=== PATIENT | male | born 1950 | race American Indian/Alaskan Native ===

== ENCOUNTER 2017-05-09 11:00 | Inpatient (IN) | payer OTHER ==
[2017-05-09 11:10] VITALS: BMI 26.0
--- NOTE | 2017-05-09 12:45 | ED PDOC ---
Lower Extremity Pain/Injury Time Seen by Provider: 05/09/17 11:38 Chief Complaint (Nursing): Lower Extremity Problem/Injury Chief Complaint (Provider): left knee pain History Per: Patient History/Exam Limitations: no limitations Additional Complaint(s): 66yo M in Ed for left knee pain and for surgical intervention to knee. denies fever, chills nausea or vomiting. Pt is scheduled to have surgery to left knee by Ralph MCDANIELS today. PT [email or web address] last meal was coffee and cream this AM. Past Medical History Reviewed: Historical Data, Nursing Documentation, Vital Signs Vital Signs: Last Vital Signs Temp 99.0 F 05/09/17 11:16 Pulse 93 H 05/09/17 11:16 Resp 16 05/09/17 11:16 BP 146/97 H 05/09/17 11:16 Pulse Ox 99 05/09/17 11:16 - Medical History PMH: Benign Prostatic Hyperplasia, COPD, HTN, Hypercholesterolemia Denies: Chronic Kidney Disease - Surgical History Other surgeries: knee (left) - Family History Family History: States: Unknown Family Hx - Immunization History Hx Tetanus Toxoid Vaccination: No Hx Influenza Vaccination: No Hx Pneumococcal Vaccination: No - Home Medications Home Medications: Ambulatory Orders Medication Instructions Recorded Albuterol/Ipratropium [Combivent 1 mg DAILY 04/11/16 Respimat] Losartan/Hydrochlorothiazide 12.5 - 50 mg PO DAILY 04/11/16 [Losartan-Hctz 50-12.5 mg Tab] Albuterol/Ipratropium [Duoneb 3 3 ml INH RQ4 PRN #0 neb 04/14/16 mg/0.5 mg (3 ml) UD] Aspirin [Aspirin Chewable] 81 mg PO DAILY #0 chew 04/14/16 Atorvastatin [Lipitor] 40 mg PO DAILY #0 tab 04/14/16 Docusate [Colace] 100 mg PO BID #0 cap 04/14/16 Fluticasone/Salmeterol 100/50 1 puff IH Q12 #0 puff 04/14/16 [Advair Diskus 100/50] HCTZ/Losartan Potassium [Hyzaar 1 tab PO DAILY #0 tab 04/14/16 12.5 mg-50 mg] Lactulose [Enulose] 20 gm PO DAILY PRN #0 udc 04/14/16 Magnesium Hydroxide [Milk Of 30 ml PO DAILY PRN #0 udc 04/14/16 Magnesia] Pregabalin [Lyrica] 50 mg PO TID #0 cap 04/14/16 Sennosides [Senna] 8.6 mg PO DAILY PRN #0 capsule 04/14/16 Tamsulosin [Flomax] 0.4 mg PO DAILY #0 cap 04/14/16 oxyCODONE/Acetaminophen [Percocet 2 tab PO Q4 PRN #0 tab 04/14/16 5/325 mg Tab] traMADol [Ultram] 50 mg PO Q4 PRN #0 tab 04/14/16 Ferrous Fumarate [Ines-Sequel] 324 mg PO TID #42 tab 05/11/16 - Allergies Allergies/Adverse Reactions: Allergies Allergy/AdvReac Type Severity Reaction Status Date / Time grass pollen Allergy SWELLING Verified 05/09/17 11:22 Wells Criteria for PE - Wells Criteria for Pulmonary Embolism Clinical Signs and Symptoms of DVT: No P.E is #1 Diagnosis, or Equally Likely: No Heart Rate >100: No Immobilization at least 3 days;Surgery previous 4 weeks: No Previous, objectively diagnosed PE or DVT: No Hemoptysis: No Malignancy w/treatment within 6 months, or palliative: No Total Score: 0 Review of Systems ROS Statement: Except As Marked, All Systems Reviewed And Found Negative Musculoskeletal: Positive for: Other (knee pain) Physical Exam - Reviewed Nursing Documentation Reviewed: Yes Vital Signs Reviewed: Yes - Physical Exam Appears: Positive for: Well, Non-toxic, No Acute Distress Head Exam: Positive for: ATRAUMATIC, NORMAL INSPECTION, NORMOCEPHALIC Skin: Positive for: Normal Color, Warm, DRY Eye Exam: Positive for: Normal appearance, EOMI, PERRL Cardiovascular/Chest: Positive for: Regular Rate, Rhythm Respiratory: Positive for: CNT, Normal Breath Sounds Extremity: Positive for: Other (left knee: swelling noted no reddness noted. ) Neurologic/Psych: Positive for: Alert, Oriented - ECG O2 Sat by Pulse Oximetry: 99 - Progress ED Course And Treament: pt will pre-OR admission labs and admitted Medical Decision Making Medical Decision Making: pt to be admitted for surgical revision of knee as per MD Yonas under Hospitalist for acute knee pain. Disposition - Clinical Impression Clinical Impression: Acute knee pain - Patient ED Disposition Is Patient to be Admitted: Yes - Disposition Disposition Time: 12:48 Condition: STABLE - Pt Status Changed To: Hospital Disposition Of: SDS- Endo,OR,Cath,IR
--- NOTE | 2017-05-09 13:03 | CP.PCM.HP ---
History of Present Illness - History of Present Illness History of Present Illness: 66 yo male with history of COPD, HTN, HLD and bilateral TKR came in the ER because of progressive worsening of pain and swelling of the left knee. Patient had TKR on 04/11/2017 complicated with dehiscence 4 weeks later during PT. A revision was done. Pt did well and continued with PT. However recently pain on the left progressively got worse accompanied with swelling. Pt denied fever or chills. Dr Aguilar, was called for orthopedic consult in the ER since he was the orthopedist who did both surgeries. He advised patient to be admitted with a plan for another surgery. Present on Admission - Present on Admission Any Indicators Present on Admission: No History of DVT/PE: No History of Uncontrolled Diabetes: No Urinary Catheter: No Decubitus Ulcer Present: No Review of Systems - Review of Systems All systems: reviewed and no additional remarkable complaints except (aside from those mentioned above, 12 point system review were negative by me) Past Patient History - Infectious Disease Hx of Infectious Diseases: None - Tetanus Immunizations Tetanus Immunization: Unknown - Past Medical History & Family History Past Medical History?: Yes Past Family History: Reviewed and not pertinent - Past Social History Smoking Status: Light Smoker < 10 Cigarettes Daily Chewing Tobacco Use: No Cigar Use: No Alcohol: None Drugs: Denies Home Situation {Lives}: With Family - CARDIAC Hx Hypercholesterolemia: Yes Hx Hypertension: Yes - PULMONARY Hx Chronic Obstructive Pulmonary Disease (COPD): Yes - NEUROLOGICAL Hx Neurological Disorder: No - HEENT Hx HEENT Problems: No - RENAL Hx Chronic Kidney Disease: No - ENDOCRINE/METABOLIC Hx Endocrine Disorders: No - HEMATOLOGICAL/ONCOLOGICAL Hx Blood Disorders: No - INTEGUMENTARY Hx Dermatological Problems: No - MUSCULOSKELETAL/RHEUMATOLOGICAL Hx Musculoskeletal Disorders: Yes Hx Falls: Yes Hx Unsteady Gait: Yes - GASTROINTESTINAL Hx Gastrointestinal Disorders: No - GENITOURINARY/GYNECOLOGICAL Hx Genitourinary Disorders: No - PSYCHIATRIC Hx Psychophysiologic Disorder: No Hx Substance Use: No - SURGICAL HISTORY Hx Surgeries: Yes Hx Arthroscopy: Yes (BOTH KNEE) Hx Joint Replacement: Yes (right TKR, 2014; left TKR and revision, 2016) Other/Comment: LKR 04/11/2016. Right TKR - 2014 - ANESTHESIA Hx Anesthesia: Yes Hx Anesthesia Reactions: No Hx Malignant Hyperthermia: No Meds Allergies/Adverse Reactions: Allergies Allergy/AdvReac Type Severity Reaction Status Date / Time grass pollen Allergy SWELLING Verified 05/09/17 11:22 Physical Exam - Constitutional Appears: No Acute Distress - Head Exam Head Exam: ATRAUMATIC - Eye Exam Eye Exam: absent: Scleral icterus - ENT Exam ENT Exam: Mucous Membranes Moist - Neck Exam Neck exam: Negative for: Meningismus - Respiratory Exam Respiratory Exam: absent: Rhonchi, Wheezes, Respiratory Distress - Cardiovascular Exam Cardiovascular Exam: REGULAR RHYTHM, +S1, +S2 - GI/Abdominal Exam GI & Abdominal Exam: Soft. absent: Tenderness - Rectal Exam Rectal Exam: Deferred - Extremities Exam Extremities exam: Positive for: joint swelling (both knees but more on the left) . Negative for: calf tenderness - Back Exam Back exam: NORMAL INSPECTION - Neurological Exam Neurological exam: Alert, Oriented x3 - Psychiatric Exam Psychiatric exam: Normal Affect - Skin Skin Exam: Dry, Intact Results - Vital Signs Recent Vital Signs: Last Vital Signs Temp 99.0 F 05/09/17 11:16 Pulse 93 H 05/09/17 11:16 Resp 16 05/09/17 11:16 BP 146/97 H 05/09/17 11:16 Pulse Ox 99 05/09/17 12:48 Assessment & Plan (1) Status post knee replacement Status: Chronic Comment: admit for observation in med/surg. for possible revision of left TKR. consult with Dr Aguilar called by ER. awaiting results of blood wotks, EKG and CXray (2) HTN (hypertension) Status: Chronic Comment: BP slightly elevated. on Hyzaar PO daily (3) COPD (chronic obstructive pulmonary disease) Status: Chronic Comment: asymptomatic. Advair Discus 250/50 1 puff q 12hrs. Duoneb q 4hrs prn for SOB/wheezing
[2017-05-09 13:19] LABS: BASO # 0.1 K/uL (0.0-0.2); EOS # 0.1 K/uL (0.0-0.7); EOS % 1.5 % (0.0-4.0); HEMATOCRIT 38.9 % (35.0-51.0); LYMPH # 1.4 K/uL (1.0-4.3); LYMPH % 18.8 % (20.0-40.0); MEAN CELL VOLUME 87.8 fl (80.0-94.0); MEAN CORPUSCULAR HEMOGLOBIN 29.7 pg (27.0-31.0); MEAN CORPUSCULAR HGB CONC 33.8 g/dL (33.0-37.0); MEAN PLATELET VOLUME 7.8 fl (7.2-11.7); MONO # 0.8 K/uL (0.0-0.8); MONO % 10.6 % (0.0-10.0); NEUT # 5.2 K/uL (1.8-7.0); NEUT % 68.1 % (50.0-75.0); NRBC % 0.2 % (0.0-0.0); RED CELL DISTRIBUTION WIDTH 14.3 % (11.5-14.5); WHITE BLOOD COUNT 7.6 K/uL (4.8-10.8)
--- NOTE | 2017-05-09 13:20 | RAD ---
HISTORY: medical clearance COMPARISON: No prior. TECHNIQUE: Chest PA and lateral FINDINGS: LUNGS: Mild hyperinflation. Suspect minor biapical pleural thickening right greater than left. PLEURA: No significant pleural effusion identified. No pneumothorax apparent. CARDIOVASCULAR: Normal. OSSEOUS STRUCTURES: No significant abnormalities. VISUALIZED UPPER ABDOMEN: Normal. OTHER FINDINGS: None. IMPRESSION: Mild hyperinflation. Suspect minor biapical pleural thickening right greater than left. . No acute consolidation.
[2017-05-09] MEDS ORDERED: Lidocaine 1% Inj (20ml) ONE (13:25)
[2017-05-09] MEDS ORDERED: Thrombin Topical 5,000 IU Spray Kit ONE (13:26)
[2017-05-09] MEDS ORDERED: Absorbable Gelatin Sponge Size 100 ONE (13:26)
[2017-05-09] MEDS ORDERED: Bacitracin Ointment 30 GM TUBE ONE (13:26)
[2017-05-09] MEDS ORDERED: Bupivacaine 0.5% Inj(30mL) ONE (13:26)
[2017-05-09 13:28] LABS: PARTIAL THROMBOPLASTIN TIME 31.2 Seconds (25.6-37.1)
[2017-05-09 13:33] LABS: ALB/GLOB RATIO 0.9 (1.0-2.1); ALKALINE PHOSPHATASE 116 U/L (38-126); ALT/SGPT 34 U/L (21-72); AST/SGOT 33 U/L (17-59); BILIRUBIN,TOTAL 0.6 mg/dl (0.2-1.3); BLOOD UREA NITROGEN 16 mg/dl (9-20); CALCIUM 9.6 mg/dL (8.4-10.2); CARBON DIOXIDE 24 mmol/L (22-30); CHLORIDE 100 mmol/L (98-107); GFR AFRICAN-AMERICAN > 60; GLUCOSE,RANDOM 81 mg/dL (75-110); SODIUM 137 mmol/l (132-148); TOTAL PROTEIN 9.7 G/DL (6.3-8.2)
[2017-05-09 13:34] LABS: POTASSIUM 5.4 MMOL/L (3.6-5.0)
[2017-05-09 13:37] LABS: RBC URINE 1 /hpf (0-3); URINE BACTERIA RARE (<OCC); URINE BILIRUBIN NEGATIVE (NEGATIVE); URINE BLOOD SMALL (NEGATIVE); URINE CALCIUM OXALATE CRYSTALS RARE /hpf (<OCC); URINE COLOR STRAW (YELLOW); URINE GLUCOSE (UA) NEG (Normal); URINE KETONE NEGATIVE (NEGATIVE); URINE LEUKOCYTE ESTERASE NEG Leu/uL (Negative); URINE PROTEIN NEGATIVE (NEGATIVE); URINE UROBILINOGEN 0.2-1.0 mg/dL (0.2-1.0); WBC URINE 1 /hpf (0-5)
[2017-05-09] MEDS ORDERED: Sodium Chloride 0.9% 1,000 ML IV SCH (13:45)
[2017-05-09] MEDS ORDERED: Rocuronium 10 mg/ml (5 ml) ONE ×2 (14:32→17:15)
[2017-05-09] MEDS ORDERED: Midazolam 2 MG/2 ML VIAL ONE (14:32)
[2017-05-09] MEDS ORDERED: Propofol 10 mg/ml Inj (20 ML) ONE (14:32)
[2017-05-09] MEDS ORDERED: Sodium Chloride 0.9% 1,000 ML IV ONE ×6 (14:40→18:00)
[2017-05-09] MEDS ORDERED: Sodium Chloride 0.9% 200 ML IV ONE ×2 (15:15)
[2017-05-09] MEDS ORDERED: Bacitracin 50,000 UNIT in SODIUM CHLORIDE 3,000 ML IR ONE (16:00)
[2017-05-09 16:04] LABS: FLUID TYPE SYNOVIAL FLUID
[2017-05-09] MEDS ORDERED: Labetalol 5mg/ml (4ml) ONE (16:50)
--- NOTE | 2017-05-09 17:59 | PCM.SURG1 ---
Surgeon's Initial Post Op Note - Surgeon's Notes Surgeon: Lauren Integration Analyst: DE Vallejo Type of Anesthesia: General Endo Anesthesia Administered By: Dr Arnold Pre-Operative Diagnosis: painful L TKR Operative Findings: septic L TKR. 25 WBC's per hi power field. anterior and posterior compartment synovitis. posterior capsular contracture. lateral patella contracture Post-Operative Diagnosis: Septic L TKR Operation Performed: Removal primary TKR componments. repair/reinforcemtn patella ligament. insertion abio imnpreganted spacer. \anterior and posterior synovectomy. posterior capsyular release. lateral patella releas Specimen/Specimens Removed: synovium. TKR compomnets. bone. cartilage Estimated Blood Loss: EBL {In ML}: 125 Blood Products Given: N/A Drains Used: No Drains Post-Op Condition: Good Date of Surgery/Procedure: 05/09/17 Time of Surgery/Procedure: 15:40 (time in room 14;40)
[2017-05-09] MEDS ORDERED: SENSORCAINE 0.5% W/EPINEPHRINE 50ML MDV IJ ONE (18:36)
[2017-05-09] MEDS ORDERED: Bupivacaine 0.25%-Epinephrine 1:200,000 (30 ml) Inj ONE (18:36)
[2017-05-09] MEDS ORDERED: Neostigmine Methylsulfate 2 MG/2 ML ML IV ONE (18:40)
[2017-05-09 19:10] LABS: SYNOVIAL FLUID TOTAL COUNT 100 (0-0)
[2017-05-09] MEDS ORDERED: Lactated Ringer's 1,000 ML IV ONE (19:10)
[2017-05-09] MEDS: HYDROmorphone 0.5 mg/0.5 ml ISec IVP PRN ×4 (19:20→20:15)
[2017-05-09] MEDS ORDERED: Lactated Ringer's 1,000 ML IV SCH (19:21)
--- NOTE | 2017-05-09 19:34 | PCM.ANESB3 ---
Femoral Nerve Block - Femoral Nerve Block Date of Procedure: 05/09/17 Anesthesiologist: Dr. Thomas Pre-Procedure Diagnosis: S/P left TKR revision Post-Procedure Diagnosis: S/P left TKR revision Procedure Performed: Femoral Nerve Block Left - Procedure Femoral Nerve Block: The procedure was explained to the patient that it is for the post-operative pain management. Consent was obtained after a thorough discussion with the patient regarding the benefits and possible complications of local anesthetic block of the femoral nerve at the inguinal crease area. The patient was brought to the operating room and standard monitors were applied. Time-out was held with the circulating nurse to confirm the correct side and the appropriate block. After the surgery while the patient still under general anesthesia, patient in supine position with fully extended lower extremities and the left groin exposed. The femoral artery was then carefully palpated. The ultrasound transducer was then applied to this area in the transverse plane and the femoral nerve was visualized lateral to the femoral artery and underneath the fascia iliaca. After thorough identification, the inguinal crease area was prepped with Chloraprep. At this point, a #21 gauge Stimuplex 4-inch needle was inserted immediately lateral to the femoral artery pulse at the inguinal crease and advanced perpendicularly. The needle was inserted to the ultrasound transducer in-plane towards the femoral nerve in a [id number] direction. Needle advancement was performed carefully under direct ultrasound visualization. Nerve stimulator was used and twitch of the quadriceps muscle was obtained at current of 0.3MA. After negative aspiration, 5cc of 0.375% Bupivacaine with 1:200,000 epinephrine was injected and this was followed with 15cc of 0.375% Bupivacaine with 1:200,000 epinephrine. Under ultrasound guidance the local anesthetics were observed spreading below fascia iliaca and around the femoral nerve. The needle was removed intact and sterile dressing was applied. The patient had stable vital signs, was conscious and in no apparent distress. The patient tolerated the femoral nerve block well with stable vital signs and was awaken from anesthesia. Then was transported to PACU in stable condition.
[2017-05-10] MEDS: ceFAZolin 1 GM in Sodium Chloride 0.9% 100 ML IVPB SCH ×2 (01:11→09:59)
[2017-05-10 07:07] LABS: BASO # 0.1 K/uL (0.0-0.2); BASO % 0.7 % (0.0-2.0); BLOOD UREA NITROGEN 16 mg/dl (9-20); CALCIUM 8.2 mg/dL (8.4-10.2); CARBON DIOXIDE 25 mmol/L (22-30); CHLORIDE 101 mmol/L (98-107); EOS # 0.2 K/uL (0.0-0.7); EOS % 3.1 % (0.0-4.0); GFR AFRICAN-AMERICAN > 60; GLUCOSE,RANDOM 108 mg/dL (75-110); HEMATOCRIT 29.6 % (35.0-51.0); LYMPH # 1.3 K/uL (1.0-4.3); LYMPH % 17.2 % (20.0-40.0); MEAN CELL VOLUME 88.3 fl (80.0-94.0); MEAN CORPUSCULAR HEMOGLOBIN 30.3 pg (27.0-31.0); MEAN CORPUSCULAR HGB CONC 34.3 g/dL (33.0-37.0); MEAN PLATELET VOLUME 7.6 fl (7.2-11.7); MONO # 0.9 K/uL (0.0-0.8); MONO % 12.2 % (0.0-10.0); NEUT % 66.8 % (50.0-75.0); NRBC % 0.1 % (0.0-0.0); POTASSIUM 4.6 MMOL/L (3.6-5.0); RED CELL DISTRIBUTION WIDTH 14.2 % (11.5-14.5); SODIUM 133 mmol/l (132-148); WHITE BLOOD COUNT 7.5 K/uL (4.8-10.8)
--- NOTE | 2017-05-10 08:39 | RAD ---
PROCEDURE: Left Knee Radiographs. HISTORY: Pain. COMPARISON: Comparison is made to the previous study dated 05/07/2016 FINDINGS: BONES: Status post left knee arthroplasty. Interval exchange of the tibial portion of the arthroplasty with new hardware. JOINTS: There is narrowing of the knee joint space compared to the previous exam. JOINT EFFUSION: None. OTHER FINDINGS: Postsurgical changes seen at the anterior aspect of the left knee. IMPRESSION: Status post left knee arthroplasty with exchange of the tibial and femoral components with new hardware seen at appropriate position.
--- NOTE | 2017-05-10 11:35 | CP.PCM.CON ---
History of Present Illness - History of Present Illness History of Present Illness: THE PATIENT IS A 66 YEAR OLD MALE WITH A HISTORY OF BILATERAL KNEE REPLACEMENTS WHO HAD HIS LEFT KNEE REPLACEMENT 13 MONTHS AGO AND HAD WOUND DEHISCENCE 4 WEEKS LATER AND HAD A REVISION. HE RECENTLY HAD LEFT KNEE PAIN AND SWELLING AND HE WAS ADMITTED YESTERDAY AND HAD THE LEFT KNEE REPLACEMENT REMOVED, THE AREA CLEANED OUT AND A SPACER INSERTED. HE ALSO HAS A HISTORY OF HYPERTENSION AND HYPERLIPIDEMIA. CARDIOLOGY WAS ASKED TO FOLLOW HIM, HE DENIES CAD HISTORY , CHEST PAIN OR SOB. Past Patient History - Infectious Disease Hx of Infectious Diseases: None - Tetanus Immunizations Tetanus Immunization: Unknown - Past Medical History & Family History Past Medical History?: Yes Past Family History: Reviewed and not pertinent - Past Social History Smoking Status: Light Smoker < 10 Cigarettes Daily Chewing Tobacco Use: No Cigar Use: No Alcohol: None Drugs: Denies Home Situation {Lives}: With Family - CARDIAC Hx Hypercholesterolemia: Yes Hx Hypertension: Yes - PULMONARY Hx Chronic Obstructive Pulmonary Disease (COPD): Yes - NEUROLOGICAL Hx Neurological Disorder: No - HEENT Hx HEENT Problems: No - RENAL Hx Chronic Kidney Disease: No - ENDOCRINE/METABOLIC Hx Endocrine Disorders: No - HEMATOLOGICAL/ONCOLOGICAL Hx Blood Disorders: No - INTEGUMENTARY Hx Dermatological Problems: No - MUSCULOSKELETAL/RHEUMATOLOGICAL Hx Musculoskeletal Disorders: Yes Hx Falls: Yes Hx Unsteady Gait: Yes - GASTROINTESTINAL Hx Gastrointestinal Disorders: No - GENITOURINARY/GYNECOLOGICAL Hx Genitourinary Disorders: No - PSYCHIATRIC Hx Psychophysiologic Disorder: No Hx Substance Use: No - SURGICAL HISTORY Hx Surgeries: Yes Hx Arthroscopy: Yes (BOTH KNEE) Hx Joint Replacement: Yes (right TKR, 2014; left TKR and revision, 2015) Other/Comment: LKR 04/11/2016. Right TKR - 2014 - ANESTHESIA Hx Anesthesia: Yes Hx Anesthesia Reactions: No Hx Malignant Hyperthermia: No Meds Allergies/Adverse Reactions: Allergies Allergy/AdvReac Type Severity Reaction Status Date / Time grass pollen Allergy SWELLING Verified 05/09/17 11:22 - Medications Medications: Current Medications Docusate Sodium (Colace) 100 mg PO BID [facility] Last Admin: 05/10/17 10:04 Dose: 100 mg Enoxaparin Sodium (Lovenox) 40 mg SC DAILY [facility] PRN Reason: Protocol Ferrous Sulfate (Feosol) 325 mg PO BID [facility] Last Admin: 06/16/17 10:54 Dose: 325 mg Hydromorphone HCl (Dilaudid 0.2 Mg/Ml Pouncing Lathe Operator) 6 mg IV Q6 CONNIE PRN Reason: Protocol Last Admin: 05/09/17 20:15 Dose: 0.2 mg Sodium Chloride (Sodium Chloride 0.9%) 1,000 mls @ 100 mls/hr IV .Q10H CONNIE Lactated Ringer's (Lactated Ringer's) 1,000 mls @ 100 mls/hr IV .Q10H CONNIE Morphine Sulfate (Morphine) 2 mg IVP Q4 PRN PRN Reason: Pain, moderate (4-7) Physical Exam - Respiratory Exam Respiratory Exam: Clear to Auscultation Bilateral - Cardiovascular Exam Cardiovascular Exam: REGULAR RHYTHM, +S1, +S2 - Additional Findings Additional findings: EKG NSR Results - Vital Signs Recent Vital Signs: Last Vital Signs Temp 98.5 F 05/10/17 07:45 Pulse 70 05/10/17 07:45 Resp 20 05/10/17 07:45 BP 133/80 05/10/17 07:45 Pulse Ox 98 05/10/17 07:45 - Labs Result Diagrams: 05/10/17 06:20 05/10/17 06:20 Labs: Laboratory Results - last 24 hr 05/09/17 05/09/17 05/09/17 13:00 13:00 13:00 WBC 7.6 D RBC 4.43 Hgb 13.2 Hct 38.9 MCV 87.8 D MCH 29.7 MCHC 33.8 RDW 14.3 Plt Count 420 H D MPV 7.8 Neut % (Auto) 68.1 Lymph % (Auto) 18.8 L [place] % (Auto) 10.6 H Eos % (Auto) 1.5 Baso % (Auto) 1.0 Neut # 5.2 Lymph # 1.4 [place] # 0.8 Eos # 0.1 Baso # 0.1 PT 12.6 INR 1.1 APTT 31.2 Sodium 137 Potassium 5.4 H Chloride 100 Carbon Dioxide 24 Anion Gap 18 BUN 16 Creatinine 1.0 Est GFR ( Amer) > 60 Est GFR (Non-Af Amer) > 60 Random Glucose 81 Calcium 9.6 Total Bilirubin 0.6 AST 33 ALT 34 Alkaline Phosphatase 116 Total Protein 9.7 H Albumin 4.6 Globulin 5.1 H Albumin/Globulin Ratio 0.9 L Urine Color Urine Clarity Urine pH Ur Specific Farrell Urine Protein Urine Glucose (UA) Urine Ketones Urine Blood Urine Nitrate Urine Bilirubin Urine Urobilinogen Ur Leukocyte Esterase Urine RBC (Auto) Urine Microscopic WBC Calcium Oxalate Crystal Urine Bacteria Fluid Type Synovial WBC Synovial RBC Synovial Neutrophils Synovial Lymphocytes Synov Monos/Macrophage Synovial Fluid Comment Blood Type Antibody Screen Crossmatch BBK History Checked 05/09/17 05/09/17 05/09/17 13:20 15:28 16:03 WBC RBC Hgb Hct MCV MCH MCHC RDW Plt Count MPV Neut % (Auto) Lymph % (Auto) [place] % (Auto) Eos % (Auto) Baso % (Auto) Neut # Lymph # [place] # Eos # Baso # PT INR APTT Sodium Potassium Chloride Carbon Dioxide Anion Gap BUN Creatinine Est GFR ( Amer) Est GFR (Non-Af Amer) Random Glucose Calcium Total Bilirubin AST ALT Alkaline Phosphatase Total Protein Albumin Globulin Albumin/Globulin Ratio Urine Color Straw Urine Clarity Clear Urine pH 6.0 Ur Specific Farrell 1.008 Urine Protein Negative Urine Glucose (UA) Neg Urine Ketones Negative Urine Blood Small Urine Nitrate Negative Urine Bilirubin Negative Urine Urobilinogen 0.2-1.0 Ur Leukocyte Esterase Neg Urine RBC (Auto) 1 Urine Microscopic WBC 1 Calcium Oxalate Crystal Rare Urine Bacteria Rare Fluid Type Synovial fluid Synovial WBC 947.0 [place] 270[address].0 H Synovial Neutrophils 75.0 H Synovial Lymphocytes 10.0 H Synov Monos/Macrophage 15 H Synovial Fluid Comment Bloody Blood Type B POSITIVE Antibody Screen Negative Crossmatch See Detail BBK History Checked Patient has bt 05/10/17 05/10/17 06:20 06:20 WBC 7.5 RBC 3.35 L Hgb 10.2 L D Hct 29.6 L MCV 88.3 MCH 30.3 MCHC 34.3 RDW 14.2 Plt Count 332 MPV 7.6 Neut % (Auto) 66.8 Lymph % (Auto) 17.2 L [place] % (Auto) 12.2 H Eos % (Auto) 3.1 Baso % (Auto) 0.7 Neut # 5.0 Lymph # 1.3 [place] # 0.9 H Eos # 0.2 Baso # 0.1 PT INR APTT Sodium 133 Potassium 4.6 Chloride 101 Carbon Dioxide 25 Anion Gap 11 BUN 16 Creatinine 1.0 Est GFR ( Amer) > 60 Est GFR (Non-Af Amer) > 60 Random Glucose 108 Calcium 8.2 L Total Bilirubin AST ALT Alkaline Phosphatase Total Protein Albumin Globulin Albumin/Globulin Ratio Urine Color Urine Clarity Urine pH Ur Specific Farrell Urine Protein Urine Glucose (UA) Urine Ketones Urine Blood Urine Nitrate Urine Bilirubin Urine Urobilinogen Ur Leukocyte Esterase Urine RBC (Auto) Urine Microscopic WBC Calcium Oxalate Crystal Urine Bacteria Fluid Type Synovial WBC Synovial RBC Synovial Neutrophils Synovial Lymphocytes Synov Monos/Macrophage Synovial Fluid Comment Blood Type Antibody Screen Crossmatch BBK History Checked Assessment & Plan - Assessment and Plan (Free Text) Assessment: INFECTED LEFT KNEE REPLACEMENT WITH SURGICAL REMOVAL, CLEANING AND SPACER INSERTION HYPERTENSION HYPERLIPIDEMIA Plan: CONTINUE LOVENOX, RESUME ATORVASTATIN OBSERVE BLOOD PRESSURE FOR RESUMPTION OF LOSARTAN
[2017-05-10] MEDS ORDERED: Lidocaine 1% Inj (20ml) ONE (12:14)
--- NOTE | 2017-05-10 12:44 | PCM.SURG1 ---
Surgeon's Initial Post Op Note - Surgeon's Notes Surgeon: Maldonado Corbin MD Acid Crane Operator: None Type of Anesthesia: Local Pre-Operative Diagnosis: Poor venous access Operative Findings: Patent right basilic vein. Post-Operative Diagnosis: poor venous access Operation Performed: Single lumen picc placement right 39 cm. Tip in SVC. Specimen/Specimens Removed: None Estimated Blood Loss: EBL {In ML}: 2 Blood Products Given: N/A Drains Used: No Drains Post-Op Condition: Fair Date of Surgery/Procedure: 05/10/17 Time of Surgery/Procedure: 12:40
[2017-05-10] MEDS: Meropenem 1 GM in Sodium Chloride 0.9% 100 ML IVPB SCH ×2 (13:52→21:09)
--- NOTE | 2017-05-10 14:41 | CP.PCM.PN ---
Subjective - Date & Time of Evaluation Date of Evaluation: 05/10/17 Time of Evaluation: 11:00 - Subjective Subjective: Pt sitted on a an Ortho chair no fever Knee Pain ( post op) controlled with HEAT SEAL OPERATOR Plan for prolonged IV abx Pt denies CP no SOB no cough no abd pain Objective - Vital Signs/Intake and Output Vital Signs (last 24 hours): Temp Pulse Resp BP Pulse Ox 100.7 F H 92 H 18 136/85 99 05/10/17 12:40 05/10/17 12:40 05/10/17 12:40 05/10/17 12:40 05/10/17 12:40 Intake and Output: 05/10/17 05/10/17 06:59 18:59 Intake Total 200 Balance 200 - Medications Medications: Current Medications Atorvastatin Calcium (Lipitor) 40 mg PO HS [facility] Docusate Sodium (Colace) 100 mg PO BID [facility] Last Admin: 05/10/17 10:04 Dose: 100 mg Enoxaparin Sodium (Lovenox) 40 mg SC DAILY [facility] PRN Reason: Protocol Ferrous Sulfate (Feosol) 325 mg PO BID [facility] Last Admin: 05/10/17 10:54 Dose: 325 mg Hydromorphone HCl (Dilaudid 0.2 Mg/Ml Sample Selector) 6 mg IV Q6 [facility] PRN Reason: Protocol Last Admin: 05/09/17 20:15 Dose: 0.2 mg Sodium Chloride (Sodium Chloride 0.9%) 1,000 mls @ 100 mls/hr IV .Q10H [facility] Lactated Ringer's (Lactated Ringer's) 1,000 mls @ 100 mls/hr IV .Q10H [facility] Vancomycin HCl 1 gm/ Sodium (Chloride) 250 mls @ 166.667 mls/hr IVPB Q12 [facility] Last Admin: 05/10/17 13:53 Dose: 166.667 mls/hr Meropenem 1 gm/ Sodium (Chloride) 100 mls @ 100 mls/hr IVPB Q12 [facility] Last Admin: 05/10/17 13:52 Dose: 100 mls/hr Morphine Sulfate (Morphine) 2 mg IVP Q4 PRN PRN Reason: Pain, moderate (4-7) - Labs Labs: 05/10/17 06:20 05/10/17 06:20 PT 12.6 Seconds (9.8-13.1) 05/09/17 13:00 INR 1.1 (0.9-1.2) 05/09/17 13:00 APTT 31.2 Seconds (25.6-37.1) 05/09/17 13:00 - Constitutional Appears: No Acute Distress - Head Exam Head Exam: NORMAL INSPECTION, NORMOCEPHALIC - Eye Exam Eye Exam: EOMI, Normal appearance Pupil Exam: NORMAL ACCOMODATION - ENT Exam ENT Exam: Mucous Membranes Moist, Normal External Ear Exam - Neck Exam Neck Exam: Full ROM. absent: Meningismus - Respiratory Exam Respiratory Exam: NORMAL BREATHING PATTERN. absent: Rales, Wheezes, Respiratory Distress - Cardiovascular Exam Cardiovascular Exam: REGULAR RHYTHM, +S1, +S2 - GI/Abdominal Exam GI & Abdominal Exam: Soft, Normal Bowel Sounds. absent: Tenderness - Extremities Exam Extremities Exam: Normal Capillary Refill. absent: Calf Tenderness Additional comments: Left knee with immobilizer - Back Exam Back Exam: Full ROM. absent: CVA tenderness (L), CVA tenderness (R) - Neurological Exam Neurological Exam: Alert, Awake, CN II-XII Intact, Oriented x3 Neuro motor strength exam: Left Upper Extremity: 5, Right Upper Extremity: 5, Left Lower Extremity: 5, Right Lower Extremity: 5 - Psychiatric Exam Psychiatric exam: Normal Affect, Normal Mood - Skin Skin Exam: Dry, Normal Color, Warm Assessment and Plan (1) Septic joint of left knee joint Status: Acute (2) Status post knee replacement Status: Chronic (3) BPH (benign prostatic hyperplasia) Status: Chronic (4) COPD (chronic obstructive pulmonary disease) Status: Chronic (5) HTN (hypertension) Status: Chronic - Assessment and Plan (Free Text) Assessment: 66 yo male with history of COPD, HTN, HLD and bilateral TKR came in the ER because of progressive worsening of pain and swelling of the left knee. Patient had TKR on 04/11/2016 complicated with dehiscence 4 weeks later during PT. A revision was done and pt did well and continued with PT. However recently pain on the left progressively got worse accompanied with swelling. (1) Septic joint of left knee joint TKR Status: Acute s/p Removal of hardware and placement of Antibiotic Spacer done by Dr Aguilar ID consulted -Dr hastings cont IV Meropenem and Vanco Pain mgt- d/c HEAT SEAL OPERATOR , start Dilaudid 0.5 mg q 6 prn and Percocet q 4 prn Incentive Spirometry (2) History of Left knee replacement - March 2016 Status: Chronic (3) BPH (benign prostatic hyperplasia) Status: Chronic cont Flomax (4) COPD (chronic obstructive pulmonary disease), chronic Status: Chronic cont Advair Duoneb prn (5) HTN (hypertension) Status: Chronic restart Losartan DVT proph - Lovenox
[2017-05-10] MEDS: Oxycodone/Acetaminophen 5/325 mg Tab PO PRN ×2 (17:17→22:58)
[2017-05-10] MEDS: Fluticasone-Salmeterol 250-50mcg Diskus IH SCH (18:00)
--- NOTE | 2017-05-10 19:18 | CON ---
DATE: 05/10/2017 HISTORY OF PRESENT ILLNESS: The patient is a 66-year-old male with a history of COPD, hypertension a nd bilateral total knee replacement, who came in via the ER because of progressive worsening of pain and swelling of the left knee. Apparently, the patient had a total knee replacement on 04/11/2017, c omplicated with dehiscence 4 weeks later during PT. A revision was done. The patient did well and continued with physiotherapy. The pain subsequently became worse and swelling increased. He was seen by his orthopedist, Dr. Aguilar, who advised him to go to the Emergency Room. On discussion wi th the patient, he denied history of any fever or chills. The only complaint was the painful swelling . Today, the patient was scheduled for an evaluation of the knee. The operative findings were septi c left total knee replacement. There were 25 WBCs per high power field, anterior and posterior compar tment synovitis, posterior capsule contracture, and lateral patellar contracture. Postoperative diag nosis as per Dr. Aguilar was septic left total knee replacement. Surgery performed was removal of th e primary TKR components, repair and reinforcement of patellar ligament, insertion of antibiotic impr egnated spacer, anterior and posterior synovectomy and posterior capsular release, also a lateral pat ellar release. Multiple cultures were taken by Dr. Aguilar and the patient was seen in the room post operatively. PHYSICAL EXAMINATION: GENERAL: He is alert, cooperative, and oriented to time and place and gives a pretty good history of what went on. As per my previous note, he stated that he did not have any fever history of fever or chills. NECK: Supple. LUNGS: Clear, although there is some decrease in breath sounds in the right base. HEART: Regular sinus rhythm. ABDOMEN: Soft, positive bowel sounds. EXTREMITIES: Right lower extremity within normal limits but he is status post TKR. The left knee gibbs s has surgical dressing and is restrained. LABORATORY DATA: White count is 7.5, hemoglobin 10.2. Creatinine 1 and GFR is greater than 60. ASSESSMENT AND PLAN: At the present time, patient needs to have at least 6 weeks of IV antibiotic t herapy and initially will be placed on vancomycin 1 gram IV piggyback q. 12 hours and meropenem 1 gra m IV piggyback q. 12 hours. The patient will be followed with cultures and any changes will be based on what we on culture and/or if patient tolerates the vancomycin renally. Clark Kellogg MD cc: [id number] TT: 05/10/2017 19:17:22 Confirmation # [id number] Dictation # [id number]
--- NOTE | 2017-05-10 19:27 | CARD ---
APPROVED REPORT EKG Measurement Heart [id number] <Conclusion> Normal sinus rhythm Normal ECG
[2017-05-10] MEDS: Enoxaparin 40 mg Syringe SC SCH (21:45)
[2017-05-11] MEDS: Meropenem 1 GM in Sodium Chloride 0.9% 100 ML IVPB SCH ×2 (00:47→12:25)
[2017-05-11] MEDS: Oxycodone/Acetaminophen 5/325 mg Tab PO PRN ×4 (03:45→21:01)
[2017-05-11] MEDS: Fluticasone-Salmeterol 250-50mcg Diskus IH SCH ×2 (06:09→16:59)
[2017-05-11 08:33] VITALS: RESP 20
[2017-05-11 08:40] LABS: ALB/GLOB RATIO 0.9 (1.0-2.1); ALKALINE PHOSPHATASE 84 U/L (38-126); ALT/SGPT 31 U/L (21-72); AST/SGOT 44 U/L (17-59); BILIRUBIN,TOTAL 0.5 mg/dl (0.2-1.3); BLOOD UREA NITROGEN 13 mg/dl (9-20); CALCIUM 8.2 mg/dL (8.4-10.2); CARBON DIOXIDE 25 mmol/L (22-30); CHLORIDE 104 mmol/L (98-107); GFR AFRICAN-AMERICAN > 60; GLUCOSE,RANDOM 111 mg/dL (75-110); POTASSIUM 4.1 MMOL/L (3.6-5.0); SODIUM 138 mmol/l (132-148); TOTAL PROTEIN 6.9 G/DL (6.3-8.2)
[2017-05-11] MEDS: Enoxaparin 40 mg Syringe SC SCH (08:59)
--- NOTE | 2017-05-11 10:27 | CP.PCM.PN ---
Subjective - Date & Time of Evaluation Date of Evaluation: 05/11/17 Time of Evaluation: 10:25 - Subjective Subjective: patient seen examined bedside doing well pain controlled ready for [place] tomorrow VSS NAD. Objective - Vital Signs/Intake and Output Vital Signs (last 24 hours): Temp Pulse Resp BP Pulse Ox 98.7 F 82 20 165/89 H 97 05/11/17 08:32 05/11/17 08:32 05/11/17 08:32 05/11/17 08:32 05/11/17 08:32 - Medications Medications: Current Medications Acetaminophen (Tylenol 325mg Tab) 650 mg PO Q6 PRN PRN Reason: Fever >100.4 F Atorvastatin Calcium (Lipitor) 40 mg PO HS [facility] Docusate Sodium (Colace) 100 mg PO BID [facility] Last Admin: 05/11/17 08:58 Dose: 100 mg Enoxaparin Sodium (Lovenox) 40 mg SC DAILY [facility] PRN Reason: Protocol Last Admin: 05/11/17 08:59 Dose: 40 mg Ferrous Sulfate (Feosol) 325 mg PO BID [facility] Last Admin: 05/11/17 08:58 Dose: 325 mg Hydromorphone HCl (Dilaudid) 0.5 mg IVP Q6 PRN PRN Reason: Pain, severe (8-10) Sodium Chloride (Sodium Chloride 0.9%) 1,000 mls @ 100 mls/hr IV .Q10H [facility] Lactated Ringer's (Lactated Ringer's) 1,000 mls @ 100 mls/hr IV .Q10H [facility] Vancomycin HCl 1 gm/ Sodium (Chloride) 250 mls @ 166.667 mls/hr IVPB Q12@0100, 1300 [facility] Last Admin: 05/11/17 02:00 Dose: 166.667 mls/hr Meropenem 1 gm/ Sodium (Chloride) 100 mls @ 100 mls/hr IVPB Q12@0100,1300 [facility] Last Admin: 05/11/17 00:47 Dose: 100 mls/hr Losartan Potassium (Cozaar) 25 mg PO DAILY [facility] Last Admin: 05/11/17 09:38 Dose: 25 mg Oxycodone/Acetaminophen (Percocet 5/325 Mg Tab) 1 tab PO Q4 PRN PRN Reason: Pain, moderate (4-7) Stop: 05/13/17 15:04 Last Admin: 05/11/17 09:03 Dose: 1 tab Fluticasone/Salmeterol (Advair Diskus 250/50) 1 puff IH Q12H [facility] Last Admin: 05/11/17 06:09 Dose: 1 puff Tamsulosin HCl (Flomax) 0.4 mg PO DAILY [facility] Last Admin: 05/11/17 08:58 Dose: 0.4 mg - Labs Labs: 05/10/17 06:20 05/11/17 08:15 PT 12.6 Seconds (9.8-13.1) 05/09/17 13:00 INR 1.1 (0.9-1.2) 05/09/17 13:00 APTT 31.2 Seconds (25.6-37.1) 05/09/17 13:00 - Constitutional Appears: Non-toxic, No Acute Distress - Head Exam Head Exam: ATRAUMATIC, NORMOCEPHALIC - Eye Exam Eye Exam: EOMI, Normal appearance, PERRL - ENT Exam ENT Exam: Mucous Membranes Moist, Normal Oropharynx - Neck Exam Neck Exam: Full ROM, Normal Inspection - Respiratory Exam Respiratory Exam: Clear to Ausculation Bilateral, NORMAL BREATHING PATTERN - Cardiovascular Exam Cardiovascular Exam: RRR, +S1, +S2 - GI/Abdominal Exam GI & Abdominal Exam: Soft, Normal Bowel Sounds. absent: Tenderness, Mass - Extremities Exam Extremities Exam: Normal Capillary Refill. absent: Calf Tenderness - Back Exam Back Exam: absent: CVA tenderness (L), CVA tenderness (R) - Neurological Exam Neurological Exam: Alert, Awake, Oriented x3 - Psychiatric Exam Psychiatric exam: Normal Affect, Normal Mood - Skin Skin Exam: Dry, Normal Color, Warm Assessment and Plan - Assessment and Plan (Free Text) Plan: 66 yo male with history of COPD, HTN, HLD and bilateral TKR came in the ER because of progressive worsening of pain and swelling of the left knee. Patient had TKR on 04/11/2016 complicated with dehiscence 4 weeks later during PT. A revision was done and pt did well and continued with PT. However recently pain on the left progressively got worse accompanied with swelling. (1) Septic joint of left knee joint TKR Status: Acute Patient doing well today s/p Removal of hardware and placement of Antibiotic Spacer done by Dr Boiardo ID consulted -Dr hastings cont IV Meropenem and Vanco Pain mgt- d/c ASSISTANT TRACK COACH , start Dilaudid 0.5 mg q 6 prn and Percocet q 4 prn Incentive Spirometry (2) History of Left knee replacement - March 2016 Status: Chronic (3) BPH (benign prostatic hyperplasia) Status: Chronic cont Flomax (4) COPD (chronic obstructive pulmonary disease), chronic Status: Chronic cont Advair Duoneb prn (5) HTN (hypertension) Status: Chronic restart Losartan DVT proph - Lovenox
--- NOTE | 2017-05-11 11:36 | CP.PCM.PN ---
Subjective - Date & Time of Evaluation Date of Evaluation: 05/11/17 Time of Evaluation: 11:35 - Subjective Subjective: S- pt with post op incisional discomfort Objective - Vital Signs/Intake and Output Vital Signs (last 24 hours): Temp Pulse Resp BP Pulse Ox 98.7 F 82 20 165/89 H 97 05/11/17 08:32 05/11/17 08:32 05/11/17 08:32 05/11/17 08:32 05/11/17 08:32 - Medications Medications: Current Medications Acetaminophen (Tylenol 325mg Tab) 650 mg PO Q6 PRN PRN Reason: Fever >100.4 F Atorvastatin Calcium (Lipitor) 40 mg PO HS [facility] Docusate Sodium (Colace) 100 mg PO BID [facility] Last Admin: 05/11/17 08:58 Dose: 100 mg Enoxaparin Sodium (Lovenox) 40 mg SC DAILY [facility] PRN Reason: Protocol Last Admin: 05/11/17 08:59 Dose: 40 mg Ferrous Sulfate (Feosol) 325 mg PO BID [facility] Last Admin: 05/11/17 08:58 Dose: 325 mg Hydromorphone HCl (Dilaudid) 0.5 mg IVP Q6 PRN PRN Reason: Pain, severe (8-10) Sodium Chloride (Sodium Chloride 0.9%) 1,000 mls @ 100 mls/hr IV .Q10H [facility] Lactated Ringer's (Lactated Ringer's) 1,000 mls @ 100 mls/hr IV .Q10H [facility] Vancomycin HCl 1 gm/ Sodium (Chloride) 250 mls @ 166.667 mls/hr IVPB Q12@0100, 1300 [facility] Last Admin: 05/11/17 02:00 Dose: 166.667 mls/hr Meropenem 1 gm/ Sodium (Chloride) 100 mls @ 100 mls/hr IVPB Q12@0100,1300 [facility] Last Admin: 05/11/17 00:47 Dose: 100 mls/hr Losartan Potassium (Cozaar) 25 mg PO DAILY [facility] Last Admin: 05/11/17 09:38 Dose: 25 mg Oxycodone/Acetaminophen (Percocet 5/325 Mg Tab) 1 tab PO Q4 PRN PRN Reason: Pain, moderate (4-7) Stop: 05/13/17 15:04 Last Admin: 05/11/17 09:03 Dose: 1 tab Fluticasone/Salmeterol (Advair Diskus 250/50) 1 puff IH Q12H [facility] Last Admin: 05/11/17 06:09 Dose: 1 puff Tamsulosin HCl (Flomax) 0.4 mg PO DAILY [facility] Last Admin: 05/11/17 08:58 Dose: 0.4 mg - Labs Labs: 05/10/17 06:20 05/11/17 08:15 PT 12.6 Seconds (9.8-13.1) 05/09/17 13:00 INR 1.1 (0.9-1.2) 05/09/17 13:00 APTT 31.2 Seconds (25.6-37.1) 05/09/17 13:00 - Additional Findings Additional findings: Objective systemic - wnl Musculoskeltal stance/gait- defrred L knee ROM restricted as expectyed no drainage pt with some post op swelling as expected N/V intact X ray- reveals excellent positon of spacer construct Assessment and Plan - Assessment and Plan (Free Text) Assessment: A- s/p removal TKR copmonents for sepsis and insertion abio imprgnated spacer P IV abios x 6 wks- then reimplantation orthopedically stable pt to betmarcisferred to rehab AM
--- NOTE | 2017-05-11 13:51 | CP.PCM.PN ---
Subjective - Date & Time of Evaluation Date of Evaluation: 06/10/17 Time of Evaluation: 10:15 - Subjective Subjective: NO COMPLAINTS Objective - Vital Signs/Intake and Output Vital Signs (last 24 hours): Temp Pulse Resp BP Pulse Ox 98.7 F 83 20 165/89 H 99 05/11/17 08:32 05/11/17 11:46 05/11/17 08:32 05/11/17 08:32 05/11/17 11:46 - Medications Medications: Current Medications Acetaminophen (Tylenol 325mg Tab) 650 mg PO Q6 PRN PRN Reason: Fever >100.4 F Atorvastatin Calcium (Lipitor) 40 mg PO HS [facility] Docusate Sodium (Colace) 100 mg PO BID [facility] Last Admin: 05/11/17 08:58 Dose: 100 mg Enoxaparin Sodium (Lovenox) 40 mg SC DAILY [facility] PRN Reason: Protocol Last Admin: 05/11/17 08:59 Dose: 40 mg Ferrous Sulfate (Feosol) 325 mg PO BID [facility] Last Admin: 05/11/17 08:58 Dose: 325 mg Hydromorphone HCl (Dilaudid) 0.5 mg IVP Q6 PRN PRN Reason: Pain, severe (8-10) Sodium Chloride (Sodium Chloride 0.9%) 1,000 mls @ 100 mls/hr IV .Q10H [facility] Lactated Ringer's (Lactated Ringer's) 1,000 mls @ 100 mls/hr IV .Q10H [facility] Vancomycin HCl 1 gm/ Sodium (Chloride) 250 mls @ 166.667 mls/hr IVPB Q12@0100, 1300 [facility] Last Admin: 05/11/17 12:25 Dose: 166.667 mls/hr Meropenem 1 gm/ Sodium (Chloride) 100 mls @ 100 mls/hr IVPB Q12@0100,1300 [facility] Last Admin: 05/11/17 12:25 Dose: 100 mls/hr Losartan Potassium (Cozaar) 25 mg PO DAILY [facility] Last Admin: 05/11/17 09:38 Dose: 25 mg Oxycodone/Acetaminophen (Percocet 5/325 Mg Tab) 1 tab PO Q4 PRN PRN Reason: Pain, moderate (4-7) Stop: 05/13/17 15:04 Last Admin: 05/11/17 13:47 Dose: 1 tab Fluticasone/Salmeterol (Advair Diskus 250/50) 1 puff IH Q12H [facility] Last Admin: 05/11/17 06:09 Dose: 1 puff Tamsulosin HCl (Flomax) 0.4 mg PO DAILY [facility] Last Admin: 05/11/17 08:58 Dose: 0.4 mg - Labs Labs: 05/10/17 06:20 05/11/17 08:15 PT 12.6 Seconds (9.8-13.1) 05/09/17 13:00 INR 1.1 (0.9-1.2) 05/09/17 13:00 APTT 31.2 Seconds (25.6-37.1) 05/09/17 13:00 - Respiratory Exam Respiratory Exam: Clear to Ausculation Bilateral - Cardiovascular Exam Cardiovascular Exam: REGULAR RHYTHM, +S1, +S2 Assessment and Plan - Assessment and Plan (Free Text) Assessment: HYPERTENSION HYPERLIPIDEMIA S/P REMOVAL OF LEFT KNEE REPLACEMENT DUE TO INFECTION Plan: CONTINUE IV ANTIBIOTICS, LOSARTAN AND IV ANTIBIOTICS FOR REHAB
[2017-05-12] MEDS: Meropenem 1 GM in Sodium Chloride 0.9% 100 ML IVPB SCH (01:24)
[2017-05-12] MEDS: Oxycodone/Acetaminophen 5/325 mg Tab PO PRN ×2 (01:41→06:12)
[2017-05-12] MEDS: Fluticasone-Salmeterol 250-50mcg Diskus IH SCH (05:00)
[2017-05-12] MEDS: Enoxaparin 40 mg Syringe SC SCH (08:04)
[2017-05-12 08:40] VITALS: BP 137/82; PULSE 91; TEMP 98.6; O2SAT 99
--- NOTE | 2017-05-12 09:02 | CP.PCM.DIS ---
Provider - Provider Date of Admission: 05/09/17 12:40 Attending physician: Harvey Bautista MD Time Spent in preparation of Discharge (in minutes): 30 Diagnosis - Discharge Diagnosis (1) Septic joint of left knee joint Status: Acute (2) BPH (benign prostatic hyperplasia) Status: Chronic (3) COPD (chronic obstructive pulmonary disease) Status: Chronic (4) HTN (hypertension) Status: Chronic (5) Primary osteoarthritis of left knee Status: Chronic Hospital Course - Lab Results Lab Results: Micro Results 05/10/17 06:20 Blood Blood Culture - Preliminary NO GROWTH AFTER 48 HOURS 05/10/17 05:20 Blood Blood Culture - Preliminary NO GROWTH AFTER 48 HOURS 05/09/17 15:58 Other: Please Indicate Mycobacterial Culture - Preliminary 05/09/17 16:00 Knee - Left Gram Stain - Final 05/09/17 16:00 Knee - Left Wound Culture - Preliminary NO GROWTH AFTER 24 HOURS 05/09/17 16:00 Knee - Left Gram Stain - Final 05/09/17 16:00 Knee - Left Wound Culture - Preliminary NO GROWTH AFTER 24 HOURS 05/09/17 16:00 Knee - Left Gram Stain - Final 05/09/17 16:00 Knee - Left Wound Culture - Preliminary NO GROWTH AFTER 24 HOURS 05/09/17 16:00 Knee - Left Gram Stain - Final 05/09/17 16:00 Knee - Left Wound Culture - Preliminary NO GROWTH AFTER 24 HOURS 05/09/17 16:00 Knee - Left Gram Stain - Final 05/09/17 16:00 Knee - Left Wound Culture - Preliminary NO GROWTH AFTER 24 HOURS 05/09/17 16:00 Knee - Left Gram Stain - Final 05/09/17 16:00 Knee - Left Wound Culture - Preliminary NO GROWTH AFTER 24 HOURS 05/09/17 16:00 Knee - Left Gram Stain - Final 05/09/17 16:00 Knee - Left Wound Culture - Preliminary NO GROWTH AFTER 24 HOURS 05/09/17 19:00 Other: Please Indicate Gram Stain - Final 05/09/17 19:00 Other: Please Indicate Wound Culture - Preliminary NO GROWTH AFTER 24 HOURS 05/09/17 19:00 Other: Please Indicate Gram Stain - Final 05/09/17 19:00 Other: Please Indicate Wound Culture - Preliminary NO GROWTH AFTER 24 HOURS 05/09/17 19:00 Other: Please Indicate Gram Stain - Final 05/09/17 19:00 Other: Please Indicate Wound Culture - Preliminary NO GROWTH AFTER 24 HOURS 05/09/17 16:05 Knee - Left Gram Stain - Final No growth. Most Recent Lab Values WBC 7.5 K/uL (4.8-10.8) 05/10/17 06:20 RBC 3.35 Mil/uL (4.40-5.90) L 05/10/17 06:20 Hgb 10.2 g/dL (12.0-18.0) L D 05/10/17 06:20 Hct 29.6 % (35.0-51.0) L 05/10/17 06:20 MCV 88.3 fl (80.0-94.0) 05/10/17 06:20 MCH 30.3 pg (27.0-31.0) 05/10/17 06:20 MCHC 34.3 g/dL (33.0-37.0) 05/10/17 06:20 RDW 14.2 % (11.5-14.5) 05/10/17 06:20 Plt Count 332 K/uL (130-400) 05/10/17 06:20 MPV 7.6 fl (7.2-11.7) 05/10/17 06:20 Neut % (Auto) 66.8 % (50.0-75.0) 05/10/17 06:20 Lymph % (Auto) 17.2 % (20.0-40.0) L 05/10/17 06:20 Vance % (Auto) 12.2 % (0.0-10.0) H 05/10/17 06:20 Eos % (Auto) 3.1 % (0.0-4.0) 05/10/17 06:20 Baso % (Auto) 0.7 % (0.0-2.0) 05/10/17 06:20 Neut # 5.0 K/uL (1.8-7.0) 05/10/17 06:20 Lymph # 1.3 K/uL (1.0-4.3) 05/10/17 06:20 Vance # 0.9 K/uL (0.0-0.8) H 05/10/17 06:20 Eos # 0.2 K/uL (0.0-0.7) 05/10/17 06:20 Baso # 0.1 K/uL (0.0-0.2) 05/10/17 06:20 PT 12.6 Seconds (9.8-13.1) 05/09/17 13:00 INR 1.1 (0.9-1.2) 05/09/17 13:00 APTT 31.2 Seconds (25.6-37.1) 05/09/17 13:00 Sodium 138 mmol/l (132-148) 05/11/17 08:15 Potassium 4.1 MMOL/L (3.6-5.0) 05/11/17 08:15 Chloride 104 mmol/L (98-107) 05/11/17 08:15 Carbon Dioxide 25 mmol/L (22-30) 05/11/17 08:15 Anion Gap 13 (10-20) 05/11/17 08:15 BUN 13 mg/dl (9-20) 05/11/17 08:15 Creatinine 1.0 mg/dL (0.8-1.5) 05/11/17 08:15 Est GFR ( Amer) > 60 05/11/17 08:15 Est GFR (Non-Af Amer) > 60 05/11/17 08:15 Random Glucose 111 mg/dL (75-110) H 05/11/17 08:15 Calcium 8.2 mg/dL (8.4-10.2) L 05/11/17 08:15 Total Bilirubin 0.5 mg/dl (0.2-1.3) 05/11/17 08:15 AST 44 U/L (17-59) 05/11/17 08:15 ALT 31 U/L (21-72) 05/11/17 08:15 Alkaline Phosphatase 84 U/L (38-126) 05/11/17 08:15 Total Protein 6.9 G/DL (6.3-8.2) 05/11/17 08:15 Albumin 3.2 g/dL (3.5-5.0) L D 05/11/17 08:15 Globulin 3.7 gm/dL (2.2-3.9) 05/11/17 08:15 Albumin/Globulin Ratio 0.9 (1.0-2.1) L 05/11/17 08:15 Procalcitonin 0.19 NG/ML (0.19-0.49) 05/11/17 08:15 Urine Color Straw (YELLOW) 05/09/17 13:20 Urine Clarity Clear (Clear) 05/09/17 13:20 Urine pH 6.0 (5.0-8.0) 05/09/17 13:20 Ur Specific [place] 1.008 (1.003-1.030) 05/09/17 13:20 Urine Protein Negative mg/dL (NEGATIVE) 05/09/17 13:20 Urine Glucose (UA) Neg mg/dL (Normal) 05/09/17 13:20 Urine Ketones Negative mg/dL (NEGATIVE) 05/09/17 13:20 Urine Blood Small (NEGATIVE) 05/09/17 13:20 Urine Nitrate Negative (NEGATIVE) 05/09/17 13:20 Urine Bilirubin Negative (NEGATIVE) 05/09/17 13:20 Urine Urobilinogen 0.2-1.0 mg/dL (0.2-1.0) 05/09/17 13:20 Ur Leukocyte Esterase Neg Tony/uL (Negative) 05/09/17 13:20 Urine RBC (Auto) 1 /hpf (0-3) 05/09/17 13:20 Urine Microscopic WBC 1 /hpf (0-5) 05/09/17 13:20 Calcium Oxalate Crystal Rare /hpf (<OCC) 05/09/17 13:20 Urine Bacteria Rare (<OCC) 05/09/17 13:20 Fluid Type Synovial fluid 05/09/17 16:03 Synovial WBC 947.0 /mm3 (0.0-150.0) H 05/09/17 16:03 Synovial RBC 49601.0 /mm3 (0.0-0.0) H 05/09/17 16:03 Synovial Neutrophils 75.0 % (0-0) H 05/09/17 16:03 Synovial Lymphocytes 10.0 % (0-0) H 05/09/17 16:03 Synov Monos/Macrophage 15 % (0-0) H 05/09/17 16:03 Synovial Fluid Comment Bloody 05/09/17 16:03 Blood Type B POSITIVE 05/09/17 15:28 Antibody Screen Negative 05/09/17 15: Crossmatch See Detail 05/09/17 15: BBK History Checked Patient has bt 05/09/17 15:28 - Hospital Course Hospital Course: 66 yo male with history of COPD, HTN, HLD and bilateral TKR came in the ER because of progressive worsening of pain and swelling of the left knee. Patient had TKR on 04/11/2016 complicated with dehiscence 4 weeks later during PT. A revision was done and pt did well and continued with PT. However recently pain on the left progressively got worse accompanied with swelling. Patient was found to have septic knee of L knee joint s/p TKR. Patient did well, is stable for d/c to [facility]. To continue pain control as well as Vancomycin and Merrem for 6 weeks. 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 , start Dilaudid 0.5 mg q 6 prn and Percocet q 4 prn Incentive Spirometry (2) History of Left knee replacement - March 2016 Status: Chronic (3) BPH (benign prostatic hyperplasia) Status: Chronic cont Flomax (4) COPD (chronic obstructive pulmonary disease), chronic Status: Chronic cont Advair Duoneb prn (5) HTN (hypertension) Status: Chronic restart Losartan DVT proph - Lovenox Discharge Exam - Head Exam Head Exam: ATRAUMATIC, NORMOCEPHALIC - Eye Exam Eye Exam: EOMI, Normal appearance, PERRL Pupil Exam: NORMAL ACCOMODATION - ENT Exam ENT Exam: Mucous Membranes Moist, Normal Oropharynx - Neck Exam Neck exam: Full Rom, Normal Inspection - Respiratory Exam Respiratory Exam: Clear to PA & Lateral, NORMAL BREATHING PATTERN - Cardiovascular Exam Cardiovascular Exam: RRR, +S1, +S2. absent: Gallop, Rubs - GI/Abdominal Exam GI & Abdominal Exam: Normal Bowel Sounds, Soft. absent: Mass, Organomegaly, Tenderness - Extremities Exam Extremities exam: normal capillary refill, pedal pulses present - Back Exam Back exam: absent: CVA tenderness (L), CVA tenderness (R) - Neurological Exam Neurological exam: Alert, Oriented x3 - Psychiatric Exam Psychiatric exam: Normal Affect, Normal Mood - Skin Skin Exam: Dry, Warm Discharge Plan - Discharge Medications Prescriptions: Meropenem [Merrem IV] 1 gm IV Q12 #84 pds Vancomycin/0.9 % Sod Chloride [Vancomycin 1 G/100Ml-0.9% NaCl] 1 gm IV Q12 #84 plast..bag - Follow Up Plan Condition: STABLE Disposition: TRANSF TO SNF Instructions: Hardware Removal (DC) Referrals: Jai Aguilar III, MD [Staff Provider] -
--- NOTE | 2017-05-12 11:59 | CP.PCM.PN ---
Subjective - Date & Time of Evaluation Date of Evaluation: 05/12/17 Time of Evaluation: 09:45 - Subjective Subjective: NO CHEST PAIN OR SOB Objective - Vital Signs/Intake and Output Vital Signs (last 24 hours): Temp Pulse Resp BP Pulse Ox 98.6 F 91 H 20 137/82 99 05/12/17 08:39 05/12/17 08:39 05/12/17 08:39 05/12/17 08:39 05/12/17 08:39 - Labs Labs: 05/10/17 06:20 05/11/17 08:15 PT 12.6 Seconds (9.8-13.1) 05/09/17 13:00 INR 1.1 (0.9-1.2) 05/09/17 13:00 APTT 31.2 Seconds (25.6-37.1) 05/09/17 13:00 - Respiratory Exam Respiratory Exam: Clear to Ausculation Bilateral - Cardiovascular Exam Cardiovascular Exam: REGULAR RHYTHM, +S1, +S2 - Extremities Exam Additional comments: LEFT KNEE AREA WARM AND SWOLLEN Assessment and Plan - Assessment and Plan (Free Text) Assessment: LEFT KNEE INFECTION AND SURGICAL REMOVAL OF HARDWARE HYPERTENSION HYPERLIPIDEMIA Plan: CONTINUE LOSARTAN, ATORVASTATIN AND LOVENOX FOR DISCHARGE TO REHAB FACILITY
--- NOTE | 2017-05-13 08:30 | OP ---
PROCEDURE DATE: 05/09/2017 PREOPERATIVE DIAGNOSIS: Painful left total knee replacement. POSTOPERATIVE DIAGNOSES: Septic left total knee replacement with compromise of the patellar ligament . PROCEDURES: 1. Removal of left total knee replacement and insertion of antibiotic-impregnated spacer. 2. Primary repair of patellar ligament with internal fixation sutures. 3. Anterior and posterior synovectomy. 4. Posterior capsule release. 5. Lateral patellar retinacular release. 6. Excision of skin and subcutaneous tissue, application of Nestor Duncan compression dressing and kn ee immobilizer. SURGEON: Jai Aguilar M.D. LAPEL PADDER: Amy , Certified Registered Nursing Group Exercise Class Instructor. ANESTHESIA: General and regional anesthesia with a postoperative regional block, Dr. Arnold. COMPLICATIONS: None. DRAINS: None. BLOOD LOSS: Approximately 125 mL. SPECIMENS REMOVED: Synovium, total knee components, bone and cartilage. POSTOPERATIVE CONDITION: Stable. OPERATIVE INDICATION: The patient is a 66-year-old gentleman well known to my practice who is status post a work-related injury in his employee at [email or web address]. As a result of that injury, the patient underwent a left total knee replacement which was successful in 2015. The patien t had a benign postoperative course and was getting ready to return to work. The patient was doing w ell, but began having some increasing discomfort over the last several weeks. The patient was treated conservatively. The patient wished to get back to work and as a result, conservative management con tinued. The pain increased until on 05/09 a.m., the patient had severe pain and restricted range of motion and presented to the Emergency Room at [facility]. The patient was adm itted with severe pain out of proportion. The patient was taken to surgery after x-rays showed evide nce of lucency in the area of the tibial component and femoral component. Pros, cons, risks and bene fits of surgical approach were discussed at length with the patient. The possibility of revision, po ssibility of secondary or tertiary surgery was discussed. The possibility of nerve injury, mechanica l failure and sepsis was discussed. The patient can no longer stand the discomfort and wished the jimenez rgery to be accomplished. OPERATIVE PROCEDURE: After the satisfactory induction of the anesthetic by Dr. Arnold, after having id entified side, site and procedure and a critical pause/timeout, after the satisfactory induction of t he anesthetic, the patient identified as ____ in the supine position with all bony prominences well p added, the left lower extremity was prepped and free draped in the usual fashion for lower extremity surgery. The tourniquet had been applied, but was not yet inflated. After having obtained informed consent, after having identified side, site and procedure and a critical pause/timeout, after the sat isfactory induction of the anesthetic, the tourniquet, which had been applied was inflated to 350 mmH g. The initial incision was extended 2 fingerbreadths distally, 2 fingerbreadths proximally and hawa pse of skin, subcutaneous tissue and some muscle was excised, a medial arthrotomy at this point is ac complished and immediately on entering the joint, there was found to be an egress and gush of pus. T he material was captured and sent down for a stat Gram stain; a number of white cells per high power field. Aerobic, anaerobic, AFB and fungal cultures were sent as well. This having been accomplished , dissection was carried around posteromedially and a portion of the patella ligament is elevated. T he patellar ligament was found to be somewhat attenuated. At this point in time, dissection was benjamin ied around posterolaterally and the patella is everted. Prior to eversion of the patella to affect e xposure, a lateral patellar retinacular release was accomplished. The tibia is dislocated anteriorly. There was found to be a posterior capsular contracture in the posterior capsule was released as wel l. There was found to be marked synovitis in the area of the posterior compartment. There was marke d synovitis in the anterior aspect of the tibia. Careful anterior and posterior synovectomy was acco mplished. Posterior capsular release was accomplished and a lateral patellar retinacular release was accomplished. This having been accomplished, the wound is thoroughly irrigated. Anterior and poste rior synovectomy is accomplished. This having been accomplished, the tibia was dislocated anteriorly and attention was now turned to the patella. There was found to be loosening in the area of the pat aileen and there was found to be losing in the area of the femoral component. Addressing the femoral c omponent after having accomplished anterior and posterior synovectomy, after accomplishing posterior capsular release, after accomplished and lateral patellar retinacular release, the interface between the cement and the prosthesis was developed using the oscillating saw and the AcuDriver. This having been accomplished, the AcuDriver was used to develop the interface between the cement and the compo nent. At this point in time, this was accomplished anteriorly, laterally and posteriorly and the fem oral component was removed in that fashion. Using high speed bur, all the cement was removed fr om the femur. Attention was now turned to the tibia. The interface between the component and the cement was develo ped, first using an oscillating saw and then using the AcuDriver. Great care was taken to circumfere ntially develop that plane, preserving as much bone as possible. The tibia was found to be more ____ _, but after 10 to 15 minutes of development of that interface, the tibial component was removed. Ce ment was removed with the bur and as much as possible was removed. This having been accomplished, th e cement having been removed, attention was turned to the patella. The interface between the patella and the bone was developed using a fresh blade on the oscillating saw. All components were thus rem adela and all 3 total knee components were removed. At this point in time, all detritus was removed. A cleanup cut was accomplished on the tibia cleanup and a cut was accomplished on the patella. This having been accomplished, the tibia and femur were repaired using the waterpik. It should be noted that ____ was used irrigation as well. The bed was prepared and the components having been removed, a size large antibiotic impregnated spacer was trialed and found to be acceptable. At this point in time, using just a bit of cement, the femoral component and tibial components were cemented. At this point in time, the patellar ligament is again examined and with the knee appropriately positioned af ter insertion of the antibiotic impregnated spacer, the patellar ligament was repaired using interrup ramila [place] internal fixation sutures. The patellar ligament was thus repaired. Closure of the deep layers with Ethibond and #2 Quill. The wound is thoroughly irrigated. It should be noted that the t ourniquet had been deflated and hemostasis controlled with the Aquamantys. Closure was in layers wit h Quill, Ethibond, 0 Quill and Vicryl and freddy were applied. Nestor Duncan compression dressing wa s applied and a knee immobilizer. A stat Gram stain intraoperatively revealed greater than 25 white cells per high power field and the second aerobic, anaerobic, AFB and fungal cultures were obtained. It should be noted that we careful ly questioned the patient on preoperative evaluation as to whether the patient was doing anything whi le he was at home or doing anything out of the ordinary. The answer to this was negative. Obviously, this surgery is as a result of a work-related injury that this patient had been involved in. The work related injury that this patient had been involved necessitated knee replacement arthroplast y. Unfortunately, the patient obtained and realized a late hematogenous sepsis of the knee requiring this procedure and after 6 weeks of IV antibiotics, ultimately a sterile field and then reimplantati on of a total knee replacement arthroplasty. Nestor Duncan compression dressing and knee immobilizer was applied. Aquacel dressing was applied. Jai Aguilar MD cc: [id number] TT: 05/11/2017 17:51:30 sn
--- NOTE | 2017-05-13 13:57 | VASCULAR ---
PROCEDURE: Date of procedure: Procedure: 1. Placement of a right arm PICC with ultrasound and fluoroscopic guidance, CPT 66532 2. PICC tip confirmation with spot radiograph and is in the superior vena cava Medications: 1 percent lidocaine Total Fluoro time: 7.2 seconds Radiation: 0.64 mGy EBL: 2 cc HISTORY: Bacteremia requiring long-term IV antibiotics TECHNIQUE: Following informed consent and procedure time-out, the patient was placed supine on the interventional table and the right arm prepped and draped in the usual sterile fashion. Ultrasound showed a patent and compressible right basilic vein. After the skin was anesthetized with lidocaine, the basilic vein was accessed with micro micropuncture technique using ultrasound guidance. A guidewire was then advanced under fluoroscopic guidance into the superior vena cava. An image documenting ultrasound guidance for vascular access was permanently saved. The length of the single-lumen 4 Ghanaian PICC was trimmed to 39 centimeters and advanced through a peel-away sheath. The PICC was position with tip of PICC confirm a spot radiograph the superior vena cava. The PICC was secured to the patient's skin. The PICC was flushed. A biopatch and sterile dressing was applied. IMPRESSION: Placement of a single-lumen 4 Ghanaian PICC trimmed to 39 centimeters via right basilic vein. The tip of the PICC is confirmed with spot radiograph and is in the superior vena cava.
== END 2017-05-12 10:41 | DRG 463 ==
LOC: H.ER 11:00 → H.ERHOLD 12:40 → H.MEDSURG1 21:18
PROC: 0SND0ZZ Release Left Knee Joint, Open Approach (ICD-10-PCS; 2017-05-09)
PROC: 0SSD0ZZ Reposition Left Knee Joint, Open Approach (ICD-10-PCS; 2017-05-09)
PROC: 0SUD09C Supplement Left Knee Joint with Liner, Patellar Surface, Open Approach (ICD-10-PCS; 2017-05-09)
PROC: 0SHD08Z Insertion of Spacer into Left Knee Joint, Open Approach (ICD-10-PCS; 2017-05-09)
PROC: 3E0T3CZ (ICD-10-PCS; 2017-05-09)
PROC: 0SPD0JZ Removal of Synthetic Substitute from Left Knee Joint, Open Approach (ICD-10-PCS; principal; 2017-05-09 13:30)
PROC: 0SBD0ZZ Excision of Left Knee Joint, Open Approach (ICD-10-PCS; 2017-05-09 13:30)
PROC: 02HV33Z Insertion of Infusion Device into Superior Vena Cava, Percutaneous Approach (ICD-10-PCS; 2017-05-10)
PROC: B518ZZA Fluoroscopy of Superior Vena Cava, Guidance (ICD-10-PCS; 2017-05-10)
PROC: B548ZZA Ultrasonography of Superior Vena Cava, Guidance (ICD-10-PCS; 2017-05-10)
DX: T84.54XA Infection and inflammatory reaction due to internal left knee prosthesis, initial encounter (principal); A41.9 Sepsis, unspecified organism; M00.9 Pyogenic arthritis, unspecified; T84.84XA Pain due to internal orthopedic prosthetic devices, implants and grafts, initial encounter; E78.00 Pure hypercholesterolemia, unspecified; E78.5 Hyperlipidemia, unspecified; I10 Essential (primary) hypertension; J44.9 Chronic obstructive pulmonary disease, unspecified; M17.12 Unilateral primary osteoarthritis, left knee; M65.9 Synovitis and tenosynovitis, unspecified; N40.0 Benign prostatic hyperplasia without lower urinary tract symptoms; Y83.1 Surgical operation with implant of artificial internal device as the cause of abnormal reaction of the patient, or of later complication, without mention of misadventure at the time of the procedure; Z87.891 Personal history of nicotine dependence

== ENCOUNTER 2017-06-27 06:51 | Day surgery (SDC) | payer OTHER ==
[2017-06-27] MEDS ORDERED: Lactated Ringer's 1,000 ML IV ONE (07:30)
[2017-06-27 10:02] LABS: EOS # 0.4 K/uL (0.0-0.7); EOS % 7.7 % (0.0-4.0); HEMOGLOBIN 12.7 g/dL (12.0-18.0); LYMPH # 1.2 K/uL (1.0-4.3); LYMPH % 23.9 % (20.0-40.0); MEAN CELL VOLUME 93.1 fl (80.0-94.0); MEAN CORPUSCULAR HEMOGLOBIN 31.1 pg (27.0-31.0); MEAN CORPUSCULAR HGB CONC 33.4 g/dL (33.0-37.0); MONO # 0.7 K/uL (0.0-0.8); MONO % 13.6 % (0.0-10.0); NEUT # 2.8 K/uL (1.8-7.0); NEUT % 53.8 % (50.0-75.0); NRBC % 0.1 % (0.0-0.0); RBC 4.1 Mil/uL (4.40-5.90); WHITE BLOOD COUNT 5.2 K/uL (4.8-10.8)
[2017-06-27 10:11] LABS: ALB/GLOB RATIO 1.3 (1.0-2.1); ALT/SGPT 50 U/L (21-72); AST/SGOT 28 U/L (17-59); BLOOD UREA NITROGEN 18 mg/dl (9-20); CALCIUM 9.5 mg/dL (8.4-10.2); GFR AFRICAN-AMERICAN > 60; GFR NON-AFRICAN AMERICAN > 60
[2017-06-27 10:31] LABS: INR 1.1 (0.9-1.2); PROTHROMBIN TIME 11.2 Seconds (9.8-13.1)
[2017-06-27] MEDS ORDERED: Midazolam 2 MG/2 ML VIAL ONE (13:30)
[2017-06-27] MEDS ORDERED: Propofol 10 mg/ml Inj (20 ML) ONE (13:30)
[2017-06-27] MEDS ORDERED: Dexamethasone 4 mg/1 ml ONE (13:32)
[2017-06-27] MEDS ORDERED: Vancomycin 1 g Inj ONE (13:50)
[2017-06-27] MEDS ORDERED: Iohexol 300 10 ML ONE (14:21)
[2017-06-27] MEDS ORDERED: Iohexol 300 100 ML IJ ONE (14:25)
[2017-06-27] MEDS ORDERED: Bacitracin Ointment 30 GM TUBE ONE (14:50)
[2017-06-27 14:56] LABS: FLUID TYPE SYNOVIAL FLUID
[2017-06-27] MEDS ORDERED: Lactated Ringer's 1,000 ML IV SCH (15:06)
[2017-06-27] MEDS ORDERED: HYDROmorphone 0.5 mg/0.5 ml ISec IVP PRN (15:06)
[2017-06-27 15:10] LABS: FLUID TYPE SYNOVIAL FLUID
--- NOTE | 2017-06-27 15:18 | PCM.SURG1 ---
Surgeon's Initial Post Op Note - Surgeon's Notes Surgeon: Lauren Sanding Machine Tender: DE [place] Type of Anesthesia: General LMA Anesthesia Administered By: Dr Wes Uribe Pre-Operative Diagnosis: s/p Septic TKR. wound dehiscience ( distal 8 cm) Operative Findings: as above. / evidnece for deep sepsis- awaiting gm stain, cell count and cultures Post-Operative Diagnosis: as above Operation Performed: incision/ drainage. excsion skin, suubcutaneous tissue and primary closuraspiration arthrogram L knee. manipulation L knee under anaesthesia Specimen/Specimens Removed: fluis aspirate. wound dehiscience Estimated Blood Loss: EBL {In ML}: 5 Blood Products Given: N/A Drains Used: No Drains Post-Op Condition: Good Date of Surgery/Procedure: 06/27/17 Time of Surgery/Procedure: 14:35 (time in room/anaesthesia indcurtion time 14:10 )
[2017-06-27 16:01] LABS: SF GROSS APPEARANCE BLOODY (CLEAR); SYNOVIAL FLUID COMMENT TURBID
[2017-06-27 16:01] LABS: SF GROSS APPEARANCE BLOODY (CLEAR); SYNOVIAL FLUID COMMENT CLOUDY
[2017-06-27 16:06] LABS: SYNOVIAL FLUID MONO/MACROPHAGE 26 % (0-0)
[2017-06-27 16:11] LABS: SYNOVIAL FLUID MONO/MACROPHAGE 19 % (0-0)
--- NOTE | 2017-06-27 17:23 | RAD ---
PROCEDURE: Fluoroscopy up to 1 hr. HISTORY: LEFT KNEE ARTROGRAM COMPARISON: None TECHNIQUE: Standard protocol for this study/examination. FINDINGS: Total fluoroscopic time (continuous mode) utilized during the procedure: 2.1 seconds. IMPRESSION: Submitted images from the current procedure: 2.0
[2017-06-27 17:58] VITALS: RESP 18; O2SAT 97
[2017-06-27 18:22] VITALS: BP 140/74; PULSE 66; TEMP 98
--- NOTE | 2017-06-28 14:08 | OP ---
PROCEDURE DATE: 06/27/2017 PREOPERATIVE DIAGNOSES: 1. Septic left knee status post removal of septic left total knee components and insertion of antibiotic-impregnated spacer. 2. Wound dehiscence distal aspect of the wound. POSTOPERATIVE DIAGNOSES: 1. Septic left knee status post removal of septic left total knee components and insertion of antibiotic-impregnated spacer. 2. Wound dehiscence distal aspect of the wound. 3. No evidence for deep infection. PROCEDURES: 1. Excision of skin and subcutaneous tissue of left wound dehiscence. 2. Irrigation and debridement. 3. Aspiration arthrogram of left knee. 4. Manipulation of left knee under anesthesia. 5. Position of fluoroscope and interpretation of video images. SURGEON: Jai Aguilar MD LABORER ORCHARD: Amy Garnica, certified registered nursing for assistance. TYPE OF ANESTHESIA: General endotracheal anesthesia. COMPLICATIONS: No complications. DRAINS: No drains. OPERATIVE INDICATION: Jos Jose is a gentleman well known to my practice who had a work related injury with a culminated in left knee replacement arthroplasty on a patient who was found to have a latent sepsis of left knee, components were removed, antibiotic-impregnated spacer was insert and 6 weeks of IV antibiotics were rendered. The patient is taken to surgery today to irrigate, incise and drain a small area of wound dehiscence. It is not purulent as well as aspirating the left knee to see if the milieu is capable of supporting reimplantation. Pros, cons, risks, and benefits of the proposed procedure was discussed. Possibility of mechanical failure, infection, thromboembolic disease, secondary or tertiary surgery discussed. The patient can no longer withstand the discomfort and wished the surgery to be accomplished. DESCRIPTION OF PROCEDURE: After the satisfactory induction of general endotracheal anesthesia by Dr. Wes Uribe, after having identified site, side and procedure and a critical pause/time out, after the satisfactory induction of the anesthetic, the patient was identified as Jos Jose in the supine position with all bony prominences well padded, the right lower extremity was prepped and free-draped in the usual fashion for lower extremity surgery. Under the surgeon's direction, the fluoroscope was positioned. Video images are generated and therapeutic decisions were made there from. This having been accomplished, the left knee is aspirated under sterile conditions and the fluid aspirated is found to be synovial fluid, viscus but not necessarily turbid. A 2 ounce fluid was sent down to the lab for aerobic, anaerobic, AFB and fungal cultures and fluid was sent for stat Gram stain, number of white cells per high-power field, and for cell count with differential. The fluid has returned 4-6 white cells per high-power field, 5-7 per high-power field. No bacteria. No evidence of anymore PMN. This having accomplished, attention was turned to the distal aspect of the wound with dehiscence using #10 blade. The skin is undermined a bit. The fibrous granulation tissue was removed sharply using the #10 blade. The skin is excised down to the skin and subcutaneous tissue and at this point in time the wound is thoroughly irrigated with antibiotic fluid. Closure was in layers with interrupted Vicryl and nylon. Compression dressings is applied. The knee is manipulated. Verification of position is offered on AP and lateral image intensification views. This having been accomplished, Nestor Duncan compression dressing was applied. The patient is discharged with 2 more weeks of IV antibiotic and then reimplantation of the prosthesis. Jai Aguilar MD
== END 2017-06-27 18:15 ==
LOC: H.OPSURG 06:51
PROVIDERS: ATTEND Orthopaedic Surgery
DX: M00.869 Arthritis due to other bacteria, unspecified knee (principal); I10 Essential (primary) hypertension

== ENCOUNTER 2017-07-24 06:39 | Inpatient (IN) | payer OTHER ==
[2017-07-18 09:05] VITALS: BMI 26.9
[2017-07-24] MEDS ORDERED: Phenylephrine 10 mg/ml Inj ONE (07:45)
[2017-07-24] MEDS ORDERED: HCTZ/Losartan 12.5/50 Tab PO ONE ×2 (07:45→08:00)
[2017-07-24] MEDS ORDERED: Lidocaine 4% (Laryng-O-Jet) Kit MM ONE (07:45)
[2017-07-24] MEDS ORDERED: Etomidate 20 mg/10ml Inj IV ONE (07:47)
[2017-07-24] MEDS ORDERED: Propofol 10 mg/ml Inj (20 ML) ONE (07:47)
[2017-07-24] MEDS ORDERED: Succinylcholine 200 mg/10 ml Inj IV ONE (07:48)
[2017-07-24] MEDS ORDERED: Rocuronium 10 mg/ml (5 ml) ONE ×3 (07:48→13:37)
[2017-07-24] MEDS ORDERED: Ropivacaine 0.5% 30ML IV ONE (07:53)
--- NOTE | 2017-07-24 08:05 | CP.PCM.HP ---
History of Present Illness - History of Present Illness History of Present Illness: Chief Complaint : Pt came for scheduled Revision TKR, Left knee HPI : Patient is a 67 y/o gent with hx of HTN, COPD, BPH, Primary OA s/p Bilat Knee TKR and Shoulder Rotator Cudd Repair came for scheduled Revision TKR , left knee. He has had multiple Left knee surgeries because of left knee dehiscence post TKR complicated by infection. Left TKR was done in March 2016 however he came back April 2016 because wound dehiscence while doing PT at a [facility]. He then underwent Revision TKR. Last April 2017 , pt presented to the ED complaining of left knee pain and swelling. He was found to have a Septic Knee Joint and underwent Removal of Hardware and Placement of antibiotic spacer. Patient was discharged to [facility] and has completed 8 wks of IV Meropenem and IV Vanco and comes back for a scheduled Revision TKR of the left knee. Patient still has some left knee pain and swelling and his knee cracks when he flexes however denies any severe pain nor fever. Denies CP, no SOB, no abd pain. Present on Admission - Present on Admission Any Indicators Present on Admission: Yes History of DVT/PE: No History of Uncontrolled Diabetes: No Urinary Catheter: No Decubitus Ulcer Present: No History Surgical Site Infection Following: Orthopedic Procedures Review of Systems - Review of Systems All systems: reviewed and no additional remarkable complaints except - Constitutional Constitutional: absent: Fever, Headache, Night Sweats, Weight Loss - EENT Eyes: absent: Change in Vision Ears: absent: Decreased Hearing, Ear Discharge Nose/Mouth/Throat: absent: Epistaxis, Nasal Congestion - Cardiovascular Cardiovascular: absent: Chest Pain, Chest Pain at Rest, Chest Pain with Activity , Edema, Orthopnea, Palpitations, Pedal Edema - Respiratory Respiratory: absent: Cough, Dyspnea, Hemoptysis, Dyspnea on Exertion - Gastrointestinal Gastrointestinal: absent: Abdominal Pain, Diarrhea, Nausea, Vomiting - Genitourinary Genitourinary: Urinary Frequency. absent: Change in Urinary Stream, Dysuria, Hematuria - Musculoskeletal Musculoskeletal: Arthralgias, Joint Swelling. absent: Muscle Weakness, Numbness - Integumentary Integumentary: absent: Pruritus, Rash, Sores - Neurological Neurological: absent: Confusion, Focal Weakness, Headaches - Psychiatric Psychiatric: absent: Anxiety, Behavioral Changes, Confusion, Depression - Endocrine Endocrine: absent: Polydipsia, Polyphagia, Polyuria - Hematologic/Lymphatic Hematologic: absent: Easy Bleeding, Easy Bruising Past Patient History - Infectious Disease Hx of Infectious Diseases: None - Tetanus Immunizations Tetanus Immunization: Unknown - Past Medical History & Family History Past Medical History?: Yes Past Family History: Reviewed and not pertinent - Past Social History Smoking Status: Former Smoker Chewing Tobacco Use: No Cigar Use: No Occupation: retired [employer] employee [place] Alcohol: Occasional Drugs: Denies Home Situation {Lives}: Alone Domestic Violence: Negative - CARDIAC Hx Cardiac Disorders: Yes Hx Hypercholesterolemia: Yes Hx Hypertension: Yes - PULMONARY Hx Respiratory Disorders: Yes Hx Chronic Obstructive Pulmonary Disease (COPD): Yes Other/Comment: carbon monoxide poisoning - NEUROLOGICAL Hx Neurological Disorder: No - HEENT Hx HEENT Problems: No - RENAL Hx Chronic Kidney Disease: No - ENDOCRINE/METABOLIC Hx Endocrine Disorders: No - HEMATOLOGICAL/ONCOLOGICAL Hx Blood Disorders: No Hx Anemia: Yes Hx Blood Transfusions: Yes Hx Blood Transfusion Reaction: No - INTEGUMENTARY Hx Dermatological Problems: No - MUSCULOSKELETAL/RHEUMATOLOGICAL Hx Musculoskeletal Disorders: Yes Hx Arthritis: Yes Hx Back Pain: Yes Hx Degenerative Joint Disease: Yes Hx Falls: Yes - GASTROINTESTINAL Hx Gastrointestinal Disorders: No - GENITOURINARY/GYNECOLOGICAL Hx Genitourinary Disorders: Yes Hx Prostate Problems: Yes Other/Comment: BPH - PSYCHIATRIC Hx Emotional Abuse: No Hx Physical Abuse: No - SURGICAL HISTORY Hx Surgeries: Yes Hx Arthroscopy: Yes (BOTH KNEE) Hx Joint Replacement: Yes (right TKR, 2014; left TKR and revision, 2015, Removal Hardware April 2017) Hx Orthopedic Surgery: Yes (TKR) Other/Comment: LEFT KNEE SURGERY-DUE TO INFECTION - ANESTHESIA Hx Anesthesia: Yes Hx Anesthesia Reactions: No Hx Malignant Hyperthermia: No Has any member of the family had a problem w/ anesthesia?: No Meds Allergies/Adverse Reactions: Allergies Allergy/AdvReac Type Severity Reaction Status Date / Time grass pollen Allergy SWELLING Verified 05/09/17 11:22 Physical Exam - Constitutional Appears: Non-toxic, No Acute Distress - Head Exam Head Exam: ATRAUMATIC, NORMAL INSPECTION, NORMOCEPHALIC - Eye Exam Eye Exam: EOMI, Normal appearance Pupil Exam: NORMAL ACCOMODATION - ENT Exam ENT Exam: Mucous Membranes Moist, Normal External Ear Exam - Neck Exam Neck exam: Positive for: Full Rom. Negative for: Meningismus - Respiratory Exam Respiratory Exam: NORMAL BREATHING PATTERN. absent: Rhonchi, Wheezes, Respiratory Distress - Cardiovascular Exam Cardiovascular Exam: REGULAR RHYTHM, +S1, +S2 - GI/Abdominal Exam GI & Abdominal Exam: Normal Bowel Sounds, Soft. absent: Tenderness - Extremities Exam Extremities exam: Positive for: normal capillary refill, pedal pulses present. Negative for: calf tenderness Additional comments: Left knee sl swollen bilat knee surgical scars - Back Exam Back exam: absent: CVA tenderness (L), CVA tenderness (R) - Neurological Exam Neurological exam: Alert, CN II-XII Intact, Oriented x3 - Psychiatric Exam Psychiatric exam: Normal Affect, Normal Mood - Skin Skin Exam: Dry, Normal Color, Warm Results - Vital Signs Recent Vital Signs: Last Vital Signs Temp 98.7 F 07/24/17 07:35 Pulse 72 07/24/17 07:40 Resp 18 07/24/17 07:35 BP 163/102 H 07/24/17 07:35 Pulse Ox 100 07/24/17 07:35 - Labs Labs: labs done as outpt reviewed - EKG Data EKG Interpreted by: Myself EKG shows normal: Sinus rhythm Rate: Normal - EKG Data When Compared to Previous EKG: No Significant Change Assessment & Plan (1) Status post knee replacement Status: Chronic (2) Septic joint of left knee joint Status: Resolved (3) HTN (hypertension) Status: Chronic (4) COPD (chronic obstructive pulmonary disease) Status: Chronic (5) BPH (benign prostatic hyperplasia) Status: Chronic (6) DVT prophylaxis Status: Acute - Assessment and Plan (Free Text) Assessment: 67 y/o gent with hx of HTN, COPD, BPH, Primary OA s/p Bilat TKR. Hx of Septic TKR left knee s/p Removal of hardware and Placement of Antibiotic spacer done April 2017, now back for Revision TKR of the left knee. He has completed 8 wks of IV Meropenem and IV Vanco at the [facility]. Medical pre op eval done by his PMD as outpatient (1) Hx of Primary OA Status post knee replacement and Revision TKR ( March and April 2016) Status: Chronic (2) Septic TKR of left knee joint s/p Removal of [place] and Antibiotic spacer April 2017 Status: Resolved completed 8 wks of IV Meropenem and Vanco in [facility] scheduled for Revision TKR Medical preop eval done as outpt by his PMD - record in chart Ortho consult - Dr Aguilar Pain mgt and PT/OT post op (3) HTN (hypertension) Status: Chronic cont Losartan (4) COPD (chronic obstructive pulmonary disease) Status: Chronic Duoneb prn and Advair (5) BPH (benign prostatic hyperplasia) Status: Chronic cont Flomax (6) DVT prophylaxis Status: Acute start post op Decision To Admit - Pt Status Changed To: Hospital Disposition Of: Inpatient - Admit Certification Admit to Inpatient:: After my assessment, the patient will require hospitalization for at least two midnights. This is because of the severity of symptoms shown, intensity of services needed, and/or the medical risk in this patient being treated as an outpatient. - . Bed Request Type: Med/Surg Admitting Physician: Sheryl Villa
[2017-07-24] MEDS ORDERED: Bupivacaine 0.5% Inj(30mL) ONE (08:45)
[2017-07-24] MEDS ORDERED: Absorbable Gelatin Sponge Size 100 ONE (08:45)
[2017-07-24] MEDS ORDERED: Bacitracin Ointment 30 GM TUBE ONE (08:45)
[2017-07-24] MEDS ORDERED: Lidocaine 1% Inj (20ml) ONE (08:45)
[2017-07-24] MEDS ORDERED: Vancomycin 1 g Inj ONE (09:20)
[2017-07-24] MEDS ORDERED: Vancomycin 750 mg Inj IVPB ONE (09:30)
[2017-07-24] MEDS ORDERED: Lactated Ringer's 1,000 ML IV ONE ×3 (10:07→17:12)
[2017-07-24] MEDS ORDERED: Dexamethasone 4 mg/1 ml ONE (10:44)
[2017-07-24] MEDS ORDERED: Desflurane Inhalation Anesthetic Liq (240 ml) ONE (10:53)
[2017-07-24] MEDS ORDERED: Sevoflurane - Inhalation Anesthetic Liq (250 ml) ONE (11:10)
[2017-07-24] MEDS ORDERED: Meropenem 1 GM in Sodium Chloride 0.9% 100 ML IVPB ONE (12:03)
[2017-07-24] MEDS ORDERED: Meropenem 500 mg Inj IVPB ONE (12:30)
[2017-07-24 12:35] LABS: FLUID TYPE SYNOVIAL FLUID
[2017-07-24 12:36] LABS: FLUID TYPE SYNOVIAL FLUID
[2017-07-24] MEDS ORDERED: Metoprolol 1 mg/ml Inj IVP ONE (12:56)
[2017-07-24] MEDS ORDERED: Neostigmine Methylsulfate 2 MG/2 ML ML IV ONE (13:46)
[2017-07-24] MEDS ORDERED: Neostigmine Methylsulfate 3mg/3ml Syringe IV ONE (13:46)
[2017-07-24 15:23] LABS: SYNOVIAL FLUID TOTAL COUNT 100 (0-0)
[2017-07-24] MEDS ORDERED: HYDROmorphone 0.5 mg/0.5 ml ISec IVP PRN (15:37)
--- NOTE | 2017-07-24 15:40 | PCM.ANESB2 ---
Popliteal Nerve Block - Popliteal Nerve Block Date of Procedure: 07/24/17 Anesthesiologist: Jojo Pre-Procedure Diagnosis: Failed Left TKA Post-Procedure Diagnosis: Same Procedure Performed: Popliteal Nerve Block Left - Procedure Popliteal Nerve Block: This procedure was explained to the patient that it is for post-operative pain management. Consent was obtained after a thorough discussion with the patient regarding the benefits and possible complications of local anesthetic block of the sciatic nerve at the popliteal level. The patient was brought to the operating room and standard monitors are applied. Time-out was held with the circulating nurse to confirm the correct surgery and the appropriate block. Under general anesthesia, patient's operative leg was gently raised and supported and the groove in between the biceps femoris and vastus lateralis muscles was carefully palpated. The skin approximately 8cm above the popliteal crease was then marked. The ultrasound transducer was then applied to the posterior thigh approximately 8cm above the popliteal crease in the transverse plane and the sciatic nerve before its division was visualized lateral to the popliteal artery and in between the bicep femoris and semimembranosus/ semitendinosus muscles. After identification, the lateral portion of the thigh was prepped with Chloraprep. At this point, a # 21 gauge Stimuplex insulated 4 inch needle was inserted into pre-marked area and advanced in a perpendicular direction. The needle was inserted above the ultrasound transducer in-plane towards the sciatic nerve in a [id number] direction. Needle advancement was performed carefully under direct ultrasound visualization. Nerve stimulator was used and dorsiflexion of the ___left__ foot was elicited at a current of ___0.4__ MA. After repeated negative aspiration, ___2__cc of __0.5___ % ropivicaine was injected and this was flowed with __18____ cc of ____0.5__% ____ropivicaine ___. Under ultrasound guidance the local anesthetics were observed tenting the epidural sheath and surrounding the roots of the sciatic nerve. The needle was removed intact and sterile dressing was applied. The patient tolerated the popliteal nerve block well with stable vital signs and was subsequently prepared for the surgery.
--- NOTE | 2017-07-24 15:42 | PCM.ANESB3 ---
Femoral Nerve Block - Femoral Nerve Block Date of Procedure: 07/24/17 Anesthesiologist: Jojo Pre-Procedure Diagnosis: Failed Left TKA Post-Procedure Diagnosis: Same Procedure Performed: Femoral Nerve Block Left - Procedure Femoral Nerve Block: The procedure was explained to the patient that it is for the post-operative pain management. Consent was obtained after a thorough discussion with the patient regarding the benefits and possible complications of local anesthetic block of the femoral nerve at the inguinal crease area. The patient was brought to the operating room and standard monitors were applied. Time-out was held with the circulating nurse to confirm the correct surgery and the appropriate block. Under general anesthesia, patient was placed in supine position with fully extended lower extremities and the ___left groin exposed. The femoral artery was then carefully palpated. The ultrasound transducer was then applied to this area in the transverse plane and the femoral nerve was visualized lateral to the femoral artery and underneath the fascia iliaca. After thorough identification, the inguinal crease area was prepped with Chloraprep. At this point, a #22 gauge Stimuplex 2-inch needle was inserted immediately lateral to the femoral artery pulse at the inguinal crease and advanced perpendicularly. The needle was inserted to the ultrasound transducer in-plane towards the femoral nerve in a [id number] direction. Needle advancement was performed carefully under direct ultrasound visualization. Nerve stimulator was used and twitch of the quadriceps muscle was obtained at current of __0.4___ MA. After negative aspiration, ___2__cc of __0.5___% ropivicaine ____was injected and this was followed with __18____ cc of ___0.5____ % ropivicaine . Under ultrasound guidance the local anesthetics were observed spreading below fascia iliaca and around the femoral nerve. The needle was removed intact and sterile dressing was applied. The patient had stable vital signs. . The patient tolerated the femoral nerve block well with stable vital signs and was prepared for subsequent surgery.
--- NOTE | 2017-07-24 16:17 | PCM.SURG1 ---
Surgeon's Initial Post Op Note - Surgeon's Notes Surgeon: Lauren Automation Test Developer: DE Vallejo Type of Anesthesia: General Endo, Block Regional Anesthesia Administered By: DR Wes Ellis Pre-Operative Diagnosis: s/p septic L TKR Operative Findings: -s/p L TKR (septic). -exuberant synovitis Post-Operative Diagnosis: s/p Removal TKR for sepsis and insertion of abio impregnated spacer. tricompartmental synovitis Operation Performed: Revision TKR (Left). Repair/reconstruction patella ligament. applx wound vac (provena). posterior capsular release. lateral patella release. anterior and posterior synovectomy Specimen/Specimens Removed: synovium/abio spacer. stat gm stain(deep)- revealed 0 wbcs/o bacteria. inital superficial gm stain -2-5 WBC's/?contaminat (gm neg??) Estimated Blood Loss: EBL {In ML}: 150 Drains Used: No Drains, Wound Vac Post-Op Condition: Good Date of Surgery/Procedure: 07/24/17 Time of Surgery/Procedure: 11:15 (time in room/anaesthesia indcution time- 10:35 )
--- NOTE | 2017-07-24 16:48 | RAD ---
PROCEDURE: Left Knee Radiographs. HISTORY: Pain. COMPARISON: None. FINDINGS: BONES: Status post left TKR revision. Hardware appears intact. Satisfactory alignment. Surrounding expected unremarkable postoperative changes as described. JOINTS: Normal. No osteoarthritis. JOINT EFFUSION: Suspect tiny joint effusion. In situ drainage catheter. OTHER FINDINGS: None. IMPRESSION: Status post left TKR revision. Hardware appears intact. Satisfactory alignment. Surrounding expected unremarkable postoperative changes with in situ drainage catheter.
[2017-07-24] MEDS ORDERED: Meropenem 1 GM in Sodium Chloride 0.9% 100 ML IVPB SCH (18:15)
--- NOTE | 2017-07-24 18:37 | CP.PCM.PN ---
Subjective - Date & Time of Evaluation Date of Evaluation: 07/24/17 Time of Evaluation: 18:28 - Subjective Subjective: I D NOTE FULL CONSULT DICTATED PATIENT c HISTORY OF MULTIPLE SURGERIES HAD GRAM NEG RODS IN GRAM STAIN(SURGICAL) HAVE ORDERED LOWERED DOSE OF VANCOMYCIN AND MEROPENEM Objective - Vital Signs/Intake and Output Vital Signs (last 24 hours): Temp Pulse Resp BP Pulse Ox 98.6 F 90 20 131/85 99 07/24/17 17:53 07/24/17 17:53 07/24/17 17:53 07/24/17 17:53 07/24/17 17:53 Intake and Output: 07/24/17 07/24/17 06:59 18:59 Intake Total 2200 Output Total 600 Balance 1600 - Medications Medications: Current Medications Acetaminophen (Tylenol 325mg Tab) 650 mg PO Q6 PRN PRN Reason: Fever >100.4 F Atorvastatin Calcium (Lipitor) 40 mg PO HS CONNIE Diphenhydramine HCl (Benadryl) 25 mg IVP Q6 PRN PRN Reason: Itching / Pruritus Docusate Sodium (Colace) 100 mg PO BID CONNIE Ferrous Sulfate (Feosol) 325 mg PO BID CONNIE Hydromorphone HCl (Dilaudid 0.2 Mg/Ml Bisque Cleaner) 0 mg IV PRN PRN; Protocol PRN Reason: Pain, severe (8-10) Lactated Ringer's (Lactated Ringer's) 1,000 mls @ 100 mls/hr IV .Q10H CONNIE Meropenem 1 gm/ Sodium (Chloride) 100 mls @ 100 mls/hr IVPB Q12H CONNIE Vancomycin HCl 500 mg/ Sodium (Chloride) 100 mls @ 100 mls/hr IVPB Q12 CONNIE Losartan Potassium (Cozaar) 50 mg PO DAILY CONNIE Fluticasone/Salmeterol (Advair Diskus 500/50) 1 puff INH BID CONNIE Tamsulosin HCl (Flomax) 0.4 mg PO DAILY CONNIE
--- NOTE | 2017-07-24 18:56 | CP.PCM.CON ---
History of Present Illness - History of Present Illness History of Present Illness: THE PATIENT IS A 67 YEAR OLD MALE WHO HAD A LEFT TKR IN 2015 AND HE HAD WOUND DEHISCENCE WITH INFECTION AND MULTIPLE SURGERIES AND IN APRIL OF 2017 HAD THE HARDWARE REMOVED AND A SPACER INSERTED. HE CAME IN TODAY AND UNDERWENT A NEW LEFT TKR, HE ALSO HAS A HISTORY OF HYPERTENSION, HYPERLIPIDEMIA, COPD AND BPH. HE DENIES ANY CHEST PAIN OR SOB. CARDIOLOGY WAS ASKED TO SEE AND FOLLOW THE PATIENT. Past Patient History - Infectious Disease Hx of Infectious Diseases: None - Tetanus Immunizations Tetanus Immunization: Unknown - Past Medical History & Family History Past Medical History?: Yes Past Family History: Reviewed and not pertinent - Past Social History Smoking Status: Former Smoker Chewing Tobacco Use: No Cigar Use: No Occupation: retired [employer] employee [place] Alcohol: Occasional Drugs: Denies Home Situation {Lives}: Alone Domestic Violence: Negative - CARDIAC Hx Cardiac Disorders: Yes Hx Hypercholesterolemia: Yes Hx Hypertension: Yes - PULMONARY Hx Respiratory Disorders: Yes Hx Chronic Obstructive Pulmonary Disease (COPD): Yes Other/Comment: carbon monoxide poisoning - NEUROLOGICAL Hx Neurological Disorder: No - HEENT Hx HEENT Problems: No - RENAL Hx Chronic Kidney Disease: No - ENDOCRINE/METABOLIC Hx Endocrine Disorders: No - HEMATOLOGICAL/ONCOLOGICAL Hx Blood Disorders: No Hx Anemia: Yes Hx Blood Transfusions: Yes Hx Blood Transfusion Reaction: No - INTEGUMENTARY Hx Dermatological Problems: No - MUSCULOSKELETAL/RHEUMATOLOGICAL Hx Musculoskeletal Disorders: Yes Hx Arthritis: Yes Hx Back Pain: Yes Hx Degenerative Joint Disease: Yes Hx Falls: Yes - GASTROINTESTINAL Hx Gastrointestinal Disorders: No - GENITOURINARY/GYNECOLOGICAL Hx Genitourinary Disorders: Yes Hx Prostate Problems: Yes Other/Comment: BPH - PSYCHIATRIC Hx Emotional Abuse: No Hx Physical Abuse: No - SURGICAL HISTORY Hx Surgeries: Yes Hx Arthroscopy: Yes (BOTH KNEE) Hx Joint Replacement: Yes (right TKR, 2014; left TKR and revision, 2015, Removal Hardware April 2017) Hx Orthopedic Surgery: Yes (TKR) Other/Comment: LEFT KNEE SURGERY-DUE TO INFECTION - ANESTHESIA Hx Anesthesia: Yes Hx Anesthesia Reactions: No Hx Malignant Hyperthermia: No Has any member of the family had a problem w/ anesthesia?: No Meds Allergies/Adverse Reactions: Allergies Allergy/AdvReac Type Severity Reaction Status Date / Time grass pollen Allergy SWELLING Verified 05/09/17 11:22 - Medications Medications: Current Medications Acetaminophen (Tylenol 325mg Tab) 650 mg PO Q6 PRN PRN Reason: Fever >100.4 F Atorvastatin Calcium (Lipitor) 40 mg PO HS [facility] Diphenhydramine HCl (Benadryl) 25 mg IVP Q6 PRN PRN Reason: Itching / Pruritus Docusate Sodium (Colace) 100 mg PO BID [facility] Last Admin: 07/24/17 18:40 Dose: 100 mg Ferrous Sulfate (Feosol) 325 mg PO BID [facility] Last Admin: 07/24/17 18:41 Dose: 325 mg Hydromorphone HCl (Dilaudid 0.2 Mg/Ml Ob[employer]e [employer]) 0 mg IV PRN PRN; Protocol PRN Reason: Pain, severe (8-10) Lactated Ringer's (Lactated Ringer's) 1,000 mls @ 100 mls/hr IV .Q10H [facility] Meropenem 1 gm/ Sodium (Chloride) 100 mls @ 100 mls/hr IVPB Q12H [facility] Vancomycin HCl 500 mg/ Sodium (Chloride) 100 mls @ 100 mls/hr IVPB Q12 [facility] Losartan Potassium (Cozaar) 50 mg PO DAILY [facility] Fluticasone/Salmeterol (Advair Diskus 500/50) 1 puff INH BID [facility] Tamsulosin HCl (Flomax) 0.4 mg PO DAILY [facility] Last Admin: 07/24/17 18:41 Dose: 0.4 mg Physical Exam - Respiratory Exam Respiratory Exam: Clear to Auscultation Bilateral - Cardiovascular Exam Cardiovascular Exam: REGULAR RHYTHM, +S1, +S2 - Extremities Exam Additional comments: LEFT KNEE AREA WITH SURGICAL DRESSINGS - Additional Findings Additional findings: PAT EKG WITH NSR Results - Vital Signs Recent Vital Signs: Last Vital Signs Temp 98.6 F 07/24/17 17:53 Pulse 90 07/24/17 17:53 Resp 20 07/24/17 17:53 BP 131/85 07/24/17 17:53 Pulse Ox 99 07/24/17 17:53 - Labs Labs: Laboratory Results - last 24 hr 07/24/17 07/24/17 07/24/17 06:50 11:40 12:00 Fluid Type Synovial fluid Synovial fluid Synovial WBC 10.0 3.0 Synovial RBC 1157.5 H 440.1 H Synovial Neutrophils 8.0 H Synovial Lymphocytes 77.0 H Synov Monos/Macrophage 15 H TEST NOT PERFORMED Synovial Fluid Comment Sl yellow Blood Type B POSITIVE Antibody Screen Negative Crossmatch See Detail BBK History Checked Patient has bt Assessment & Plan - Assessment and Plan (Free Text) Assessment: S/P LEFT TKR HYPERTENSION HYPERLIPIDEMIA COPD BPH Plan: CONTINUE ANTIBIOTICS, LOSARTAN AND ATORVASTATIN FOR REHAB
[2017-07-25] MEDS: Lactated Ringer's 1,000 ML IV SCH ×4 (05:12→23:47)
[2017-07-25 06:20] LABS: BASO % 0.3 % (0.0-2.0); EOS % 0.1 % (0.0-4.0); HEMATOCRIT 33.9 % (35.0-51.0); LYMPH # 1.5 K/uL (1.0-4.3); LYMPH % 14.8 % (20.0-40.0); MEAN CELL VOLUME 92.3 fl (80.0-94.0); MEAN CORPUSCULAR HEMOGLOBIN 31.5 pg (27.0-31.0); MEAN CORPUSCULAR HGB CONC 34.2 g/dL (33.0-37.0); MEAN PLATELET VOLUME 8.1 fl (7.2-11.7); MONO # 1.5 K/uL (0.0-0.8); MONO % 15.4 % (0.0-10.0); NEUT # 6.9 K/uL (1.8-7.0); NEUT % 69.4 % (50.0-75.0); RED CELL DISTRIBUTION WIDTH 14.8 % (11.5-14.5); WHITE BLOOD COUNT 9.9 K/uL (4.8-10.8)
[2017-07-25 06:26] LABS: BLOOD UREA NITROGEN 17 mg/dl (9-20); CALCIUM 9.1 mg/dL (8.4-10.2); CARBON DIOXIDE 24 mmol/L (22-30); CHLORIDE 104 mmol/L (98-107); GFR AFRICAN-AMERICAN > 60; GLUCOSE,RANDOM 121 mg/dL (75-110); POTASSIUM 4.2 MMOL/L (3.6-5.0); SODIUM 137 mmol/l (132-148)
[2017-07-25] MEDS: Fluticasone-Salmeterol 500-50mcg Diskus INH SCH ×2 (09:18→16:46)
--- NOTE | 2017-07-25 09:18 | CP.PCM.PN ---
Subjective - Date & Time of Evaluation Date of Evaluation: 07/25/17 Time of Evaluation: 10:30 - Subjective Subjective: Patient seen and examined bedside. s/p left knee revision . Complains of pain to left knee . Participating with PT. Hemodynamically stable, afebrile. No acute issues overnight Objective - Vital Signs/Intake and Output Vital Signs (last 24 hours): Temp Pulse Resp BP Pulse Ox 98.4 F 85 20 160/99 H 99 07/25/17 07:25 07/25/17 07:25 07/25/17 07:25 07/25/17 07:25 07/25/17 07:25 - Medications Medications: Current Medications Acetaminophen (Tylenol 325mg Tab) 650 mg PO Q6 PRN PRN Reason: Fever >100.4 F Atorvastatin Calcium (Lipitor) 40 mg PO HS [facility] Last Admin: 07/24/17 22:28 Dose: 40 mg Diphenhydramine HCl (Benadryl) 25 mg IVP Q6 PRN PRN Reason: Itching / Pruritus Docusate Sodium (Colace) 100 mg PO BID [facility] Last Admin: 07/24/17 18:40 Dose: 100 mg Enoxaparin Sodium (Lovenox) 40 mg SC DAILY [facility] PRN Reason: Protocol Ferrous Sulfate (Feosol) 325 mg PO BID [facility] Last Admin: 07/24/17 18:41 Dose: 325 mg Hydromorphone HCl (Dilaudid 0.2 Mg/Ml Aerospace Quality Engineer) 0 mg IV PRN PRN; Protocol PRN Reason: Pain, severe (8-10) Lactated Ringer's (Lactated Ringer's) 1,000 mls @ 100 mls/hr IV .Q10H [facility] Last Admin: 07/25/17 06:40 Dose: 100 mls/hr Vancomycin HCl 500 mg/ Sodium (Chloride) 100 mls @ 100 mls/hr IVPB Q12 [facility] Last Admin: 07/24/17 22:28 Dose: 100 mls/hr Meropenem 1 gm/ Sodium (Chloride) 100 mls @ 100 mls/hr IVPB Q12 [facility] Losartan Potassium (Cozaar) 50 mg PO DAILY [facility] Fluticasone/Salmeterol (Advair Diskus 500/50) 1 puff INH BID [facility] Tamsulosin HCl (Flomax) 0.4 mg PO DAILY [facility] Last Admin: 07/24/17 18:41 Dose: 0.4 mg - Labs Labs: 07/25/17 05:15 07/25/17 05:15 - Constitutional Appears: Non-toxic, No Acute Distress - Head Exam Head Exam: ATRAUMATIC, NORMAL INSPECTION, NORMOCEPHALIC - Eye Exam Eye Exam: EOMI, Normal appearance Pupil Exam: NORMAL ACCOMODATION - ENT Exam ENT Exam: Mucous Membranes Moist, Normal Exam - Neck Exam Neck Exam: Full ROM, Normal Inspection - Respiratory Exam Respiratory Exam: Clear to Ausculation Bilateral, NORMAL BREATHING PATTERN. absent: Rales, Rhonchi, Wheezes - Cardiovascular Exam Cardiovascular Exam: REGULAR RHYTHM, +S1, +S2. absent: JVD - GI/Abdominal Exam GI & Abdominal Exam: Soft, Normal Bowel Sounds. absent: Distended, Guarding, Tenderness, Rebound - Rectal Exam Rectal Exam: Deferred - Extremities Exam Extremities Exam: Normal Capillary Refill. absent: Calf Tenderness Additional comments: left knee with aditya bandage in place and wound vac pulses intact , warm to touch - Back Exam Back Exam: NORMAL INSPECTION - Neurological Exam Neurological Exam: Alert, Awake, CN II-XII Intact, Normal Gait, Oriented x3 - Psychiatric Exam Psychiatric exam: Normal Affect, Normal Mood - Skin Skin Exam: Dry, Intact, Normal Color, Warm Assessment and Plan - Assessment and Plan (Free Text) Assessment: 67 y/o gent with hx of HTN, COPD, BPH, Primary OA s/p Bilat TKR. Hx of Septic TKR of left knee s/p Removal of hardware and Placement of Antibiotic spacer done April 2017, now back for Revision TKR of the left knee. He has completed 8 weeks of IV Meropenem and IV Vanco at the [facility]. Today post op day 1 and doing well, participating with PT . 1. s/p Revision of left TKR post op Day 1 ortho on board following Started PT and participating well. will follow up recommendations ID on consult.Has received 8 weeks of vanco and meropenem Continue IV Vanco and meropenem as per OD Pain management Lovenox for DVT prophylaxis 2. Hx of Primary OA Status post bilateral knee replacement 3. Septic TKR of left knee joint s/p Removal of [place] and Antibiotic spacer April 2017 Resolved completed 8 wks of IV Meropenem and Vanco in [facility] s/p revision of left knee by Dr. Aguilar 07/24/17 ID consulted and antibiotics resumed Continue pain management 4.HTN (hypertension) Chronic cont Losartan 5. COPD (chronic obstructive pulmonary disease) Chronic Duoneb prn and Advair 6.BPH (benign prostatic hyperplasia) Chronic cont Flomax 7.DVT prophylaxis Acute lovenox
--- NOTE | 2017-07-25 09:50 | CP.PCM.PN ---
Subjective - Date & Time of Evaluation Date of Evaluation: 07/25/17 Time of Evaluation: 09:30 - Subjective Subjective: NO CHEST PAIN OR SOB Objective - Vital Signs/Intake and Output Vital Signs (last 24 hours): Temp Pulse Resp BP Pulse Ox 98.4 F 85 20 160/99 H 99 07/25/17 07:25 07/25/17 09:19 07/25/17 07:25 07/25/17 09:19 07/25/17 07:25 - Medications Medications: Current Medications Acetaminophen (Tylenol 325mg Tab) 650 mg PO Q6 PRN PRN Reason: Fever >100.4 F Atorvastatin Calcium (Lipitor) 40 mg PO HS [facility] Last Admin: 07/24/17 22:28 Dose: 40 mg Diphenhydramine HCl (Benadryl) 25 mg IVP Q6 PRN PRN Reason: Itching / Pruritus Docusate Sodium (Colace) 100 mg PO BID [facility] Last Admin: 07/25/17 09:18 Dose: 100 mg Enoxaparin Sodium (Lovenox) 40 mg SC DAILY [facility] PRN Reason: Protocol Ferrous Sulfate (Feosol) 325 mg PO BID [facility] Last Admin: 07/25/17 09:20 Dose: 325 mg Hydromorphone HCl (Dilaudid 0.2 Mg/Ml Administrative Technician) 0 mg IV PRN PRN; Protocol PRN Reason: Pain, severe (8-10) Lactated Ringer's (Lactated Ringer's) 1,000 mls @ 100 mls/hr IV .Q10H [facility] Last Admin: 07/25/17 06:40 Dose: 100 mls/hr Vancomycin HCl 500 mg/ Sodium (Chloride) 100 mls @ 100 mls/hr IVPB Q12 [facility] Last Admin: 07/25/17 09:20 Dose: 100 mls/hr Meropenem 1 gm/ Sodium (Chloride) 100 mls @ 100 mls/hr IVPB Q12 [facility] Losartan Potassium (Cozaar) 50 mg PO DAILY [facility] Last Admin: 07/25/17 09:19 Dose: 50 mg Fluticasone/Salmeterol (Advair Diskus 500/50) 1 puff INH BID [facility] Last Admin: 07/25/17 09:18 Dose: 1 puff Tamsulosin HCl (Flomax) 0.4 mg PO DAILY [facility] Last Admin: 07/25/17 09:20 Dose: 0.4 mg - Labs Labs: 07/25/17 05:15 07/25/17 05:15 - Respiratory Exam Respiratory Exam: Clear to Ausculation Bilateral - Cardiovascular Exam Cardiovascular Exam: REGULAR RHYTHM, +S1, +S2 - Additional Findings Additional findings: H/H Assessment and Plan - Assessment and Plan (Free Text) Assessment: S/P TOTAL LKR HYPERTENSION HYPERLIPIDEMIA Plan: CONTINUE LOSARTAN, ATORVASTATIN, LOVENOX AND ANTIBIOTICS FOR REHAB
[2017-07-25] MEDS: Enoxaparin 40 mg Syringe SC SCH (12:30)
[2017-07-25] MEDS: Meropenem 1 GM in Sodium Chloride 0.9% 100 ML IVPB SCH ×2 (12:31→23:02)
[2017-07-25 15:57] VITALS: RESP 18; TEMP 98.8; O2SAT 97
[2017-07-25] MEDS: DiphenhydrAMINE 50 mg/ml Inj IVP PRN ×2 (16:52→23:00)
[2017-07-25] MEDS: Oxycodone/Acetaminophen 5/325 mg Tab PO PRN (21:21)
--- NOTE | 2017-07-26 03:51 | OP ---
PROCEDURE DATE: 07/24/2017 PREOPERATIVE DIAGNOSIS: Status post septic left total knee replacement arthroplasty. POSTOPERATIVE DIAGNOSES: 1. Status post septic left total knee replacement arthroplasty, which has been treated with 6 weeks of IV antibiotics and which had a successful aspiration. 2. Tricompartmental synovitis. 3. Posterior capsular contracture. 4. Lateral patellar retinacular contracture. 5. Anterior and posterior synovitis. SURGEON: Jai Aguilar MD LAMINATOR: Amy Garnica, certified registered nursing funeral home assistant. SECOND PRINT LINE SUPERVISOR: Krishna Lamar. TYPE OF ANESTHESIA: General endotracheal and regional anesthesia. ADMINISTERED BY: Wes Uribe MD PROCEDURES: 1. Revision left total knee replacement and arthroplasty. 2. Repair and reconstruction patellar ligament. 3. Application Prevena wound vacuum assisted closure. 4. Posterior capsular release. 5. Lateral patellar retinacular release. 6. Anterior and posterior synovectomy. 7. Computer navigation. OPERATIVE FINDINGS: As above. SPECIMENS REMOVED: 1. The antibiotic impregnated spacer is removed. 2. Specimen synovitis. 3. Stat Gram stains were accomplished. The deep Gram stain revealed no white cells per high-power field and no bacteria. The initial superficial Gram stain, which may have been a contaminant reveals 2 to 5 white cells per high-power field, questionable Gram-negative rods. BLOOD LOSS: Approximately 150 mL. DRAINS USED: Prevena wound VAC. POSTOPERATIVE CONDITION: Stable. INCISION TIME: 11:15, time of the room 10:35. OPERATIVE INDICATION: Jos Jose is a 67-year-old gentleman well known to my practice who presents after successful total knee replacement, which was accomplished as a result of work related injury in his job and he starts [employer]. The patient presents at this point after having experienced the late hematogenous sepsis. The components were removed, 6 weeks of antibiotics had been administered, and the patient was taken to surgery for aspiration of the knee. Pros, cons, risks, and benefits of reimplantation at this point in time were discussed. The patient can understand the waiting and the discomfort with the antibiotic impregnated spacer. The results of the aspirate were discussed with him. Pros, cons, risks, and benefits of the proposed procedure were discussed. The possibility of mechanical failure, infection, recurred infection, thromboembolic disease secondary or tertiary surgery was discussed. OPERATIVE PROCEDURE: After having obtained informed consent in the above fashion. After having identified side, site, and procedure and a critical pause/time-out. The patient identified as Jos Jose. The left lower extremity is prepped and re-draped in usual fashion for lower extremity surgery. A tourniquet had been applied, but is not yet inflated. After exsanguinating the lower extremity using a 6-inch Esmarch bandage, the tourniquet, which have been applied is inflated to 350 mmHg. The initial incision is extended 2 fingerbreadths proximally and 2 fingerbreadths distally. The skin incision is carried down through the skin and subcutaneous tissue. A medial arthrotomy is accomplished, dissection was carried around posterior medially to the direct head of the semimembranosus tendon. A portion of the patella ligament is elevated. An anterior synovectomy is accomplished. The initial fluid obtained after the incision was sent for stat Gram stain and a number of white cells per high-power field. Aerobic, anaerobic, AFB, and fungal cultures are sent x2. At this point in time, the extensive anterior and posterior synovectomy is accomplished. The patella is carefully everted, the knee is flexed, and the portion of the patellar ligament insertion is elevated and is to be repaired later. The lateral patellar retinacular release was accomplished to allow eversion of the patella and to treat the lateral patellar retinacular contracture. Partial synovectomy tricompartmentally, anterior and posterior compartments was accomplished. Using the electrocautery, hemostasis accomplished using the Aquamantys. The tibia is dislocated anteriorly. Attention was first turned of the tibial component. The interspace between the antibiotic impregnated spacer and the bone is carefully developed using an oscillating saw and then the Accu-drive. The tibial component was removed. This having been accomplished and attention was turned to the femur and the interspace between the antibiotic impregnated spacer on the femoral side and the femoral bone is developed using the oscillating saw and the Accu-drive. As the tibial component is removed and the femoral component is removed as well. This was sent for specimen. A thorough synovectomy was accomplished and there is found to be a posterior capsular contracture and at this point in time, the posterior capsular was carefully released after tensing the posterior compartment with the lamina cottage attendant. Computer navigation at this point is accomplished. The OrthAlign/KneeAlign accelerometer is employed. The accelerometer technology is employed. Excess cement had been removed, having a fixed tibial strut, and the sensor and the accelerometer fixed to the anterior strut. The offset is registered to the area of the previous posterior aspect of the anterior cruciate ligament insertion. The offset is set and again using accelerometer technology and computer navigation, the medial malleolus is registered and the lateral malleolus is registered. On the most minimal tibial cut with the parameters having thus been sent, the initial osteotomies accomplished 2 mm below the cut surface. The skin cut is accomplished. The tibial osteotomy having been accomplished, the proximal tibia is repaired with reaming for a 12-mm stem. This having been accomplished, the flexion and extension gap is found to be high and to control the joint line. The shims will be attached to the tibial component. The proximal tibia is prepared with guidance rotation being the lateral aspect of the tibial condyle and mid malleolar access of the medial third of the tibial tuberosity. Attention is now turned to the femur. The component is having been removed. The antibiotic impregnated spacer having been removed from the femur. The intramedullary canal was entered. The distal cut is set to 2.5 mm distal to the epicondylar prominence. The cut is along the epicondylar access and the distal cut is accomplished using the oscillating saw. There was found to be 10 mm of bone resected to where the joint lines should be. This having been accomplished, the 4:1 block is applied to the cut surface of the distal femur. The #3 cemented femoral component is employed and the 4:1 block is accomplished. Anterior and posterior osteotomies were accomplished with a [place] cuts. A 5-mm buildup is employed on the medial side and 10 mm on the posterior lateral side. This having been accomplished, the tying was accomplished with the #4 tibial component, which is stemmed to 80 mm with a #10 stem and the #12 femoral component is employed. The femoral component is tagged with buildups medially and laterally and a 15 mm polyethylene is employed. Flexion and extension gap is found to be excellent in balance. At this point in time, further synovectomy is accomplished. The patella is identified and cleared of scar tissue and the patella osteotomies accomplished. Patella was reamed from 32 mm patella, trailing is accomplished using the appropriate stem femoral component trial, tibial component trial, 15 mm polyethylene, and 32 mm patella. The deep Gram stain at this point in time is come back with no white cells per high-power field and no bacteria. At this point in time, the flexion and extension gap is found to be excellent. The patella balance is found to be excellent and the attention is turned to cementation. At this point in time, the #3 stem femoral component is implanted, the #4 symmetric tibial tray, which is stemmed to 80 mm with 10-mm stem and the 15 mm polyethylene. The screws employed. The 32 mm patella is cemented. Flexion and extension balance and again patellar balance was found to be excellent. At this point in time, attention is turned to the patellar ligament. The patellar ligament is repaired using modified Hallie suture for reinforcement through drill hole from the tibia and this was followed with 2 Arthrex anchors with 2 sutures of piece, so with the knee approximately 10 degrees of flexion, the patellar ligament is reconstructed and reinforced. Lateral patellar retinacular release having been accomplished. Posterior capsular release having been accomplished. The tourniquet has inflated and hemostasis is controlled with the Aquamantys. Closures in layers with #2 fiber wire for the arthrotomy interrupted Vicryl sutures, 0 and 2-0 Vicryl and freddy for skin. It should be noted at this point that the Prevena wound VAC is trimmed to the appropriate size and it is placed over the wound. The aperture in the Prevena is cut and the Prevena is employed and it is hooked to the wound VAC suction. This having been accomplished, the Prevena having been applied. Nestor Duncan compression dressing and knee immobilizer was applied. Unfortunately, this surgery is as directing cause as a result of the work-related injury that this patient had, necessitating a left total knee replacement. Subsequently, the left total knee replacement became septic and thus this revision is required. The patient is transferred from the operating room table to the stretcher and having tolerated the procedure well. Jai Aguilar MD
[2017-07-26 06:14] LABS: HEMATOCRIT 29.7 % (35.0-51.0); MEAN CELL VOLUME 91.2 fl (80.0-94.0); MEAN CORPUSCULAR HEMOGLOBIN 31.9 pg (27.0-31.0); RED CELL DISTRIBUTION WIDTH 14.6 % (11.5-14.5); WHITE BLOOD COUNT 10.2 K/uL (4.8-10.8)
[2017-07-26 06:43] LABS: BLOOD UREA NITROGEN 14 mg/dl (9-20); CALCIUM 8.5 mg/dL (8.4-10.2); CARBON DIOXIDE 26 mmol/L (22-30); CHLORIDE 100 mmol/L (98-107); GFR AFRICAN-AMERICAN > 60; GLUCOSE,RANDOM 130 mg/dL (75-110); POTASSIUM 3.9 MMOL/L (3.6-5.0); SODIUM 134 mmol/l (132-148)
--- NOTE | 2017-07-26 08:08 | CP.PCM.PN ---
Subjective - Date & Time of Evaluation Date of Evaluation: 07/26/17 Time of Evaluation: 08:00 - Subjective Subjective: S- pt with post op incisional discomfort Objective - Vital Signs/Intake and Output Vital Signs (last 24 hours): Temp Pulse Resp BP Pulse Ox 98.8 F 91 H 18 118/76 97 07/25/17 15:57 07/25/17 15:57 07/25/17 15:57 07/25/17 15:57 07/25/17 15:57 - Medications Medications: Current Medications Acetaminophen (Tylenol 325mg Tab) 650 mg PO Q6 PRN PRN Reason: Fever >100.4 F Atorvastatin Calcium (Lipitor) 40 mg PO HS [facility] Last Admin: 07/25/17 23:02 Dose: 40 mg Diphenhydramine HCl (Benadryl) 25 mg IVP Q6 PRN PRN Reason: Itching / Pruritus Last Admin: 07/25/17 23:00 Dose: 25 mg Docusate Sodium (Colace) 100 mg PO BID [facility] Last Admin: 07/25/17 16:47 Dose: 100 mg Enoxaparin Sodium (Lovenox) 40 mg SC DAILY [facility] PRN Reason: Protocol Last Admin: 07/25/17 12:30 Dose: 40 mg Ferrous Sulfate (Feosol) 325 mg PO BID [facility] Last Admin: 07/25/17 16:47 Dose: 325 mg Lactated Ringer's (Lactated Ringer's) 1,000 mls @ 100 mls/hr IV .Q10H [facility] Last Admin: 07/25/17 23:47 Dose: 100 mls/hr Vancomycin HCl 500 mg/ Sodium (Chloride) 100 mls @ 100 mls/hr IVPB Q12 [facility] Last Admin: 07/25/17 21:16 Dose: 100 mls/hr Meropenem 1 gm/ Sodium (Chloride) 100 mls @ 100 mls/hr IVPB Q12 [facility] Last Admin: 07/25/17 23:02 Dose: 100 mls/hr Losartan Potassium (Cozaar) 50 mg PO DAILY [facility] Last Admin: 07/25/17 09:19 Dose: 50 mg Oxycodone/Acetaminophen (Percocet 5/325 Mg Tab) 1 tab PO Q6 PRN PRN Reason: Pain, moderate (4-7) Stop: 07/28/17 20:34 Last Admin: 07/25/17 21:21 Dose: 1 tab Fluticasone/Salmeterol (Advair Diskus 500/50) 1 puff INH BID [facility] Last Admin: 07/25/17 16:46 Dose: 1 puff Tamsulosin HCl (Flomax) 0.4 mg PO DAILY [facility] Last Admin: 07/25/17 09:20 Dose: 0.4 mg - Labs Labs: 07/26/17 05:20 07/26/17 05:20 - Skin Additional comments: Objective Musculoskekltal stance/gait- defrred dressing dry and intact provena vac [id number] Xray- excellent position of construct Assessment and Plan - Assessment and Plan (Free Text) Assessment: A- s/p Revision TKR P- orthopedically stable
[2017-07-26] MEDS: Oxycodone/Acetaminophen 5/325 mg Tab PO PRN (09:04)
[2017-07-26] MEDS: Fluticasone-Salmeterol 500-50mcg Diskus INH SCH (09:04)
[2017-07-26] MEDS: DiphenhydrAMINE 50 mg/ml Inj IVP PRN (09:05)
[2017-07-26] MEDS: Enoxaparin 40 mg Syringe SC SCH (09:05)
[2017-07-26] MEDS: Lactated Ringer's 1,000 ML IV SCH (09:07)
[2017-07-26] MEDS: Meropenem 1 GM in Sodium Chloride 0.9% 100 ML IVPB SCH (09:08)
[2017-07-26] MEDS ORDERED: HYDROmorphone 0.5 mg/0.5 ml ISec IVP PRN (09:56)
[2017-07-26] MEDS ORDERED: Oxycodone/Acetaminophen 5/325 mg Tab PO PRN (09:58)
[2017-07-26] MEDS ORDERED: oxyCODONE 10 mg ER Tab (oxyCONTIN) PO SCH (10:00)
[2017-07-26 11:07] VITALS: BP 147/90; PULSE 81
--- NOTE | 2017-07-26 11:07 | CP.PCM.DIS ---
Provider - Provider Date of Admission: 07/24/17 16:13 Attending physician: Sheryl Villa MD Primary care physician: Jai Aguilar III, MD Consults: Ortho : Dr Aguilar ID: Dr Kellogg Cardio: Dr Tatum Handy mgt Time Spent in preparation of Discharge (in minutes): 25 Diagnosis - Discharge Diagnosis (1) Status post knee replacement Status: Chronic (2) Septic joint of left knee joint Status: Resolved (3) HTN (hypertension) Status: Chronic (4) COPD (chronic obstructive pulmonary disease) Status: Chronic (5) BPH (benign prostatic hyperplasia) Status: Chronic (6) DVT prophylaxis Status: Acute Hospital Course - Lab Results Lab Results: Micro Results 07/24/17 11:25 Knee - Left Gram Stain - Final 07/24/17 11:25 Knee - Left Wound Culture - Preliminary NO GROWTH AFTER 24 HOURS 07/24/17 11:25 Knee - Left Gram Stain - Final 07/24/17 11:25 Knee - Left Wound Culture - Preliminary NO GROWTH AFTER 24 HOURS 07/24/17 11:25 Knee - Left Gram Stain - Final 07/24/17 11:25 Knee - Left Wound Culture - Preliminary NO GROWTH AFTER 24 HOURS 07/24/17 11:25 Knee - Left Gram Stain - Final 07/24/17 11:25 Knee - Left Wound Culture - Preliminary NO GROWTH AFTER 24 HOURS 07/24/17 11:25 Knee - Left Gram Stain - Final 07/24/17 11:25 Knee - Left Wound Culture - Preliminary NO GROWTH AFTER 24 HOURS 07/24/17 11:25 Knee - Left Gram Stain - Final 07/24/17 11:25 Knee - Left Wound Culture - Preliminary NO GROWTH AFTER 24 HOURS 07/24/17 11:25 Knee - Left Gram Stain - Final 07/24/17 11:25 Knee - Left Wound Culture - Preliminary NO GROWTH AFTER 24 HOURS 07/24/17 11:25 Knee - Left Gram Stain - Final 07/24/17 11:25 Knee - Left Wound Culture - Preliminary NO GROWTH AFTER 24 HOURS 07/24/17 11:30 Other: Please Indicate Anaerobic Culture - Final NO ANAEROBES ISOLATED. 07/24/17 11:30 Other: Please Indicate Mycobacterial Culture - Preliminary 07/24/17 12:27 Synovial Fluid Gram Stain - Final 07/24/17 12:27 Synovial Fluid Body Fluid Culture - Preliminary NO GROWTH AFTER 24 HOURS 07/24/17 11:30 Synovial Fluid Gram Stain - Final 07/24/17 11:30 Synovial Fluid Body Fluid Culture - Preliminary NO GROWTH AFTER 24 HOURS Most Recent Lab Values WBC 10.2 K/uL (4.8-10.8) 07/26/17 05:20 RBC 3.25 Mil/uL (4.40-5.90) L 07/26/17 05:20 Hgb 10.4 g/dL (12.0-18.0) L 07/26/17 05:20 Hct 29.7 % (35.0-51.0) L 07/26/17 05:20 MCV 91.2 fl (80.0-94.0) 07/26/17 05:20 MCH 31.9 pg (27.0-31.0) H 07/26/17 05:20 MCHC 35.0 g/dL (33.0-37.0) 07/26/17 05:20 RDW 14.6 % (11.5-14.5) H 07/26/17 05:20 Plt Count 239 K/uL (130-400) 07/26/17 05:20 MPV 8.1 fl (7.2-11.7) 07/25/17 05:15 Neut % (Auto) 69.4 % (50.0-75.0) 07/25/17 05:15 Lymph % (Auto) 14.8 % (20.0-40.0) L 07/25/17 05:15 [place]atte % (Auto) 15.4 % (0.0-10.0) H 07/25/17 05:15 Eos % (Auto) 0.1 % (0.0-4.0) 07/25/17 05:15 Baso % (Auto) 0.3 % (0.0-2.0) 07/25/17 05:15 Neut # 6.9 K/uL (1.8-7.0) 07/25/17 05:15 Lymph # 1.5 K/uL (1.0-4.3) 07/25/17 05:15 Platte # 1.5 K/uL (0.0-0.8) H 07/25/17 05:15 Eos # 0.0 K/uL (0.0-0.7) 07/25/17 05:15 Baso # 0.0 K/uL (0.0-0.2) 07/25/17 05:15 Sodium 134 mmol/l (132-148) 07/26/17 05:20 Potassium 3.9 MMOL/L (3.6-5.0) 07/26/17 05:20 Chloride 100 mmol/L (98-107) 07/26/17 05:20 Carbon Dioxide 26 mmol/L (22-30) 07/26/17 05:20 Anion Gap 12 (10-20) 07/26/17 05:20 BUN 14 mg/dl (9-20) 07/26/17 05:20 Creatinine 1.0 mg/dL (0.8-1.5) 07/26/17 05:20 Est GFR ( Amer) > 60 07/26/17 05:20 Est GFR (Non-Af Amer) > 60 07/26/17 05:20 Random Glucose 130 mg/dL (75-110) H 07/26/17 05:20 Calcium 8.5 mg/dL (8.4-10.2) 07/26/17 05:20 Fluid Type Synovial fluid 07/24/17 12:00 Synovial WBC 3.0 /mm3 (0.0-150.0) 07/24/17 12:00 Synovial RBC 440.1 /mm3 (0.0-0.0) H 07/24/17 12:00 Synovial Neutrophils 8.0 % (0-0) H 07/24/17 11:40 Synovial Lymphocytes 77.0 % (0-0) H 07/24/17 11:40 Synov Monos/Macrophage TEST NOT PERFORMED 07/24/17 12:00 Synovial Fluid Comment Sl yellow 07/24/17 11:40 Blood Type B POSITIVE 07/24/17 06:50 Antibody Screen Negative 07/24/17 06:50 Crossmatch See Detail 07/24/17 06:50 BBK History Checked Patient has bt 07/24/17 06:50 - Hospital Course Hospital Course: 67 y/o gent with hx of HTN, COPD, BPH, Primary OA s/p Bilat TKR. Hx of Septic TKR of left knee s/p Removal of hardware and Placement of Antibiotic spacer done April 2017, now back for Revision TKR of the left knee. Completed 8 wks IV Vanco at the [facility]. Underwent Revision TKR on 07/24. 1. s/p Revision of left TKR and Wound Vac Placement Ortho: Dr Aguilar Started PT and participating- will d/c to [facility] for further PT ID on consult. Has received 8 weeks of vanco in [facility] Continue IV Vanco and meropenem x 4 more wks as discussed with Dr Kellogg 1 Wound c/s Gram stain ( Gram neg rods) however no growth on c/s Pain management Lovenox for DVT prophylaxis 2. Hx of Primary OA Status post bilateral knee replacement 3. History Septic TKR of left knee joint s/p Removal of Hardware and Antibiotic spacer April 2017 Resolved completed 8 wks of IV Vanco in [facility] ID consulted and antibiotics resumed Continue pain management 4.HTN (hypertension) Chronic cont Losartan 5. COPD (chronic obstructive pulmonary disease) Chronic Duoneb prn and Advair 6.BPH (benign prostatic hyperplasia) Chronic cont Flomax 7.DVT prophylaxis Acute lovenox Discharge Exam - Head Exam Head Exam: ATRAUMATIC, NORMAL INSPECTION, NORMOCEPHALIC - Eye Exam Eye Exam: EOMI, Normal appearance, PERRL Pupil Exam: NORMAL ACCOMODATION - ENT Exam ENT Exam: Mucous Membranes Moist, Normal External Ear Exam - Neck Exam Neck exam: Full Rom - Respiratory Exam Respiratory Exam: NORMAL BREATHING PATTERN. absent: Respiratory Distress - Cardiovascular Exam Cardiovascular Exam: REGULAR RHYTHM, +S1, +S2 - GI/Abdominal Exam GI & Abdominal Exam: Normal Bowel Sounds, Soft. absent: Tenderness - Extremities Exam Extremities exam: normal capillary refill, pedal pulses present Additional comments: no calf tenderness left knee with dressing - Back Exam Back exam: FULL ROM. absent: CVA tenderness (L), CVA tenderness (R) - Neurological Exam Neurological exam: Alert, CN II-XII Intact, Oriented x3, Reflexes Normal - Psychiatric Exam Psychiatric exam: Normal Affect - Skin Skin Exam: Dry, Normal Color, Warm Discharge Plan - Discharge Medications Prescriptions: Meropenem 1g/NS 100mL IVPB 1 gm IV Q12 30 Days Vancomycin/0.9 % Sod Chloride [Vanco 500 mg/100 ml-0.9% NaCl] 500 mg IV Q12 30 Days - Follow Up Plan Condition: GOOD Disposition: TRANSF TO SNF Instructions: Acute Wound Care (DC), Surgical Site Infections (DC) Additional Instructions: ff up with Dr Aguilar in 1 wk keep Wound Vac until Dr Aguilar sees pt Vanco trough and BMP weekly Referrals: Jai Aguilar III, MD [Primary Care Provider] -
--- NOTE | 2017-07-26 11:53 | CP.PCM.PN ---
Subjective - Date & Time of Evaluation Date of Evaluation: 07/26/17 Time of Evaluation: 09:00 - Subjective Subjective: NO CHEST PAIN OR SOB ONLY COMPLAINT IS LEFT KNEE SURGICAL SITE PAIN Objective - Vital Signs/Intake and Output Vital Signs (last 24 hours): Temp Pulse Resp BP Pulse Ox 98.8 F 81 18 147/90 97 07/25/17 15:57 07/26/17 11:07 07/25/17 15:57 07/26/17 11:07 07/25/17 15:57 - Medications Medications: Current Medications Acetaminophen (Tylenol 325mg Tab) 650 mg PO Q6 PRN PRN Reason: Fever >100.4 F Atorvastatin Calcium (Lipitor) 40 mg PO HS [facility] Last Admin: 07/25/17 23:02 Dose: 40 mg Diphenhydramine HCl (Benadryl) 25 mg IVP Q6 PRN PRN Reason: Itching / Pruritus Last Admin: 07/26/17 09:05 Dose: 25 mg Docusate Sodium (Colace) 100 mg PO BID [facility] Last Admin: 07/26/17 09:05 Dose: 100 mg Enoxaparin Sodium (Lovenox) 40 mg SC DAILY [facility] PRN Reason: Protocol Last Admin: 07/26/17 09:05 Dose: 40 mg Ferrous Sulfate (Feosol) 325 mg PO BID [facility] Last Admin: 07/26/17 09:07 Dose: 325 mg Hydromorphone HCl (Dilaudid) 0.5 mg IVP Q6 PRN PRN Reason: Pain, severe (8-10) Lactated Ringer's (Lactated Ringer's) 1,000 mls @ 100 mls/hr IV .Q10H [facility] Last Admin: 07/26/17 09:07 Dose: Not Given Vancomycin HCl 500 mg/ Sodium (Chloride) 100 mls @ 100 mls/hr IVPB Q12 [facility] Last Admin: 07/26/17 09:08 Dose: 100 mls/hr Meropenem 1 gm/ Sodium (Chloride) 100 mls @ 100 mls/hr IVPB Q12 [facility] Last Admin: 07/26/17 09:08 Dose: 100 mls/hr Losartan Potassium (Cozaar) 50 mg PO DAILY [facility] Last Admin: 07/26/17 09:07 Dose: 50 mg Oxycodone HCl (Oxycontin Extended Release Tab) 10 mg PO Q12 [facility] Stop: 07/29/17 10:01 Last Admin: 07/26/17 11:17 Dose: 10 mg Oxycodone/Acetaminophen (Percocet 5/325 Mg Tab) 1 tab PO Q4 PRN PRN Reason: Pain, moderate (4-7) Stop: 07/29/17 13:01 Fluticasone/Salmeterol (Advair Diskus 500/50) 1 puff INH BID [facility] Last Admin: 07/26/17 09:04 Dose: 1 puff Tamsulosin HCl (Flomax) 0.4 mg PO DAILY [facility] Last Admin: 07/26/17 09:07 Dose: 0.4 mg - Labs Labs: 07/26/17 05:20 07/26/17 05:20 - Respiratory Exam Respiratory Exam: Clear to Ausculation Bilateral - Cardiovascular Exam Cardiovascular Exam: REGULAR RHYTHM, +S1, +S2 Assessment and Plan - Assessment and Plan (Free Text) Assessment: TOTAL LEFT KNEE REPLACEMENT HYPERTENSION HYPERLIPIDEMIA Plan: CONTINUE LOSARTAN, ATORVASTATIN AND LOVENOX FOR DISCHARGE TO REHAB FACILITY TODAY
== END 2017-07-26 15:35 | DRG 467 ==
LOC: H.OPSURG 06:39 → H.ERHOLD 16:13 → H.MEDSURG1 17:43
PROVIDERS: ADMIT Internal Medicine; ATTEND Internal Medicine
PROC: 0SPU0JZ Removal of Synthetic Substitute from Left Knee Joint, Femoral Surface, Open Approach (ICD-10-PCS; principal; 2017-07-25)
PROC: 0SPD0JC Removal of Synthetic Substitute from Left Knee Joint, Patellar Surface, Open Approach (ICD-10-PCS; 2017-07-25)
PROC: 0SRD0J9 Replacement of Left Knee Joint with Synthetic Substitute, Cemented, Open Approach (ICD-10-PCS; 2017-07-25)
PROC: 0SBD4ZX Excision of Left Knee Joint, Percutaneous Endoscopic Approach, Diagnostic (ICD-10-PCS; 2017-07-25)
DX: T84.54XA Infection and inflammatory reaction due to internal left knee prosthesis, initial encounter (principal); M00.862 Arthritis due to other bacteria, left knee; J44.9 Chronic obstructive pulmonary disease, unspecified; M17.12 Unilateral primary osteoarthritis, left knee; T84.093A Other mechanical complication of internal left knee prosthesis, initial encounter; I10 Essential (primary) hypertension; N40.0 Benign prostatic hyperplasia without lower urinary tract symptoms; M65.9 Synovitis and tenosynovitis, unspecified; E78.5 Hyperlipidemia, unspecified; E78.00 Pure hypercholesterolemia, unspecified; Z87.891 Personal history of nicotine dependence; M24.562 Contracture, left knee; M65.88 Other synovitis and tenosynovitis, other site

== ENCOUNTER 2017-09-03 14:02 | Inpatient (IN) | payer OTHER ==
[2017-09-03 14:02] VITALS: BMI 26.9
[2017-09-03 16:23] LABS: BASO % 0.5 % (0.0-2.0); EOS # 0.3 K/uL (0.0-0.7); EOS % 3.7 % (0.0-4.0); HEMATOCRIT 32.7 % (35.0-51.0); LYMPH # 1.4 K/uL (1.0-4.3); LYMPH % 19.3 % (20.0-40.0); MEAN CELL VOLUME 94.2 fl (80.0-94.0); MEAN CORPUSCULAR HEMOGLOBIN 31.9 pg (27.0-31.0); MEAN CORPUSCULAR HGB CONC 33.9 g/dL (33.0-37.0); MEAN PLATELET VOLUME 7.4 fl (7.2-11.7); MONO # 0.7 K/uL (0.0-0.8); MONO % 9.8 % (0.0-10.0); NEUT # 4.7 K/uL (1.8-7.0); NEUT % 66.7 % (50.0-75.0); NRBC % 0.1 % (0.0-0.0); RED CELL DISTRIBUTION WIDTH 14.8 % (11.5-14.5)
[2017-09-03 16:31] LABS: ALKALINE PHOSPHATASE 107 U/L (38-126); ALT/SGPT 49 U/L (21-72); AST/SGOT 49 U/L (17-59); BILIRUBIN,TOTAL 0.3 mg/dl (0.2-1.3); BLOOD UREA NITROGEN 7 mg/dl (9-20); CALCIUM 9.5 mg/dL (8.4-10.2); CARBON DIOXIDE 24 mmol/L (22-30); CHLORIDE 105 mmol/L (98-107); GFR AFRICAN-AMERICAN > 60; GLUCOSE,RANDOM 105 mg/dL (75-110); POTASSIUM 3.8 MMOL/L (3.6-5.0); SODIUM 144 mmol/l (132-148)
--- NOTE | 2017-09-03 16:40 | ED PDOC ---
HPI: General Adult Time Seen by Provider: 09/03/17 14:21 Chief Complaint (Nursing): Wound Check Chief Complaint (Provider): Wound Check History Per: Patient History/Exam Limitations: no limitations Current Symptoms Are (Timing): Still Present Additional Complaint(s): 67 y/o male with a past medical history of hypertension and hypercholesterolemia who presents to the emergency department after sent from Dr. Lauren MCDANIELS for "oozing discharge from the left knee," for the past week. States discharged in dark brown/yellow. Patient underwent knee replacement on July 24, 2017 and had a wound vacuum-assisted closure (VAC) last week. Denies fever. Past Medical History Reviewed: Historical Data, Nursing Documentation, Vital Signs Vital Signs: Last Vital Signs Temp 98.3 F 09/03/17 17:02 Pulse 91 H 09/03/17 17:02 Resp 17 09/03/17 17:02 BP 145/91 H 09/03/17 17:02 Pulse Ox 98 09/03/17 18:17 - Medical History PMH: Anemia, Arthritis, Benign Prostatic Hyperplasia, COPD, HTN, Hypercholesterolemia Denies: Chronic Kidney Disease - Surgical History Other surgeries: Knee Replacement (left) - Family History Family History: States: Unknown Family Hx - Social History Current smoker - smoking cessation education provided: No Ex-Smoker (has not smoked in the last 12 months): Yes Alcohol: Occasional Drugs: Denies - Immunization History Hx Tetanus Toxoid Vaccination: No Hx Influenza Vaccination: No Hx Pneumococcal Vaccination: No - Home Medications Home Medications: Ambulatory Orders Medication Instructions Recorded Acetaminophen [Tylenol 325mg tab] 650 mg PO Q6H PRN 09/03/17 Acetaminophen [Tylenol 325mg tab] 650 mg PO Q6H PRN 09/03/17 Atorvastatin [Lipitor] 40 mg PO HS 09/03/17 Docusate [Colace] 100 mg PO BID 09/03/17 Ferrous Sulfate [Feosol] 325 mg PO BID 09/03/17 Fluticasone/Salmeterol 500/50 1 puff IH Q12H 09/03/17 [Advair Diskus 500/50] Losartan [Cozaar] 50 mg PO DAILY 09/03/17 Magnesium Hydroxide [Milk Of 30 ml PO HS PRN 09/03/17 Magnesia] Oxycodone HCl [Oxycontin] 10 mg PO Q12H 09/03/17 Tamsulosin [Flomax] 0.4 mg PO QPM 09/03/17 ceFAZolin 1 gm in NS [Ancef 1GM in 1 gm IV Q8H 09/03/17 NS] oxyCODONE/Acetaminophen [Percocet 1 tab PO Q4H PRN 09/03/17 5/325 mg Tab] - Allergies Allergies/Adverse Reactions: Allergies Allergy/AdvReac Type Severity Reaction Status Date / Time grass pollen Allergy SWELLING Verified 05/09/17 11:22 Review of Systems ROS Statement: Except As Marked, All Systems Reviewed And Found Negative Constitutional: Negative for: Fever Musculoskeletal: Positive for: Other (Wound check up to the left knee. Wound associated with dark brown/yellow oozing discharge. ) Physical Exam - Reviewed Nursing Documentation Reviewed: Yes Vital Signs Reviewed: Yes - Physical Exam Appears: Positive for: Non-toxic, No Acute Distress Head Exam: Positive for: ATRAUMATIC, NORMAL INSPECTION, NORMOCEPHALIC Skin: Positive for: Normal Color, Warm, Dry Extremity: Positive for: Normal ROM, Other (Let knee open wound (0.5 cm) with serosanguinous drainage. ) Neurologic/Psych: Positive for: Alert, Oriented (x3) - Laboratory Results Result Diagrams: 09/03/17 16:14 09/03/17 16:14 - ECG O2 Sat by Pulse Oximetry: 98 (RA) Pulse Ox Interpretation: Normal - Physician Consult Information Physician Contacted: Clark Kellogg Outcome Of Conversation: Recommends Vanco and Merrem. Medical Decision Making Medical Decision Making: Time: 15:15 Initial Impression: Wound Check Initial Plan: Type and Screen EKG CMP CBC w/diff PTT & Prothrombin Blood Culture Wound Culture Knee x-ray Consult Requested with Dr. Lauren MCDANIELS Time: 15:27 Orthopedic Consult: With Dr. Jai Aguilar MD ( Who performed Knee Replacement) Cardiology Consult: Medical clearance. Spoke to Dr. Hal Winn MD Infectious Disease Consult: For knee wound with Dr. Clark Kellogg MD Time: 16:00 -- Dr. Clark Kellogg MD advised antibiotics given to patient while in ER. Time: 17:21 --Admit to hospital routine: As inpatient in Med/Surg for POST-OP wound under the care of Dr. Harvey Bautista MD Scribe Attestation: Documented by Juhi Yadav, acting as a scribe for Nini Bonilla MD. Provider Scribe Attestation: All medical record entries made by the Scribe were at my direction and personally dictated by me. I have reviewed the chart and agree that the record accurately reflects my personal performance of the history, physical exam, medical decision making, and the department course for this patient. I have also personally directed, reviewed, and agree with the discharge instructions and disposition. Disposition - Clinical Impression Clinical Impression: Wound disruption, post-op, skin - Patient ED Disposition Is Patient to be Admitted: Yes (As inpatient in Med/Surg under the care Dr. Harvey Bautista MD) Counseled Patient/Family Regarding: Diagnosis, Need For Followup - Disposition Disposition Time: 17:21 Condition: STABLE
[2017-09-03 16:46] LABS: PARTIAL THROMBOPLASTIN TIME 28.6 Seconds (25.6-37.1)
[2017-09-03] MEDS ORDERED: Magnesium Hydroxide Susp 30 ml UD PO PRN (17:46)
--- NOTE | 2017-09-03 17:57 | RAD ---
HISTORY: Medical clearance COMPARISON: Chest x-ray performed 05/09/17 TECHNIQUE: Chest PA and lateral FINDINGS: Examination limited by habitus. LUNGS: Mild biapical pleural thickening. No focal consolidation. Please note that chest x-ray has limited sensitivity for the detection of pulmonary masses. PLEURA: No significant pleural effusion identified. No definite pneumothorax . CARDIOVASCULAR: Heart size appears within normal limits. Ectatic aorta. OSSEOUS STRUCTURES: Degenerative changes. VISUALIZED UPPER ABDOMEN: Unremarkable. OTHER FINDINGS: None. IMPRESSION: Mild biapical pleural thickening.
--- NOTE | 2017-09-03 18:01 | RAD ---
Left knee radiographs Indication: Knee wound Comparison: Left knee radiographs performed 07/24/17 Findings: Left knee arthroplasty. No acute displaced fracture identified. Diffuse soft tissue swelling. Bubbles of gas/subcutaneous emphysema within the soft tissues of laterally; correlate clinically. Impression: Bubbles of gas/subcutaneous emphysema involving the lateral soft tissues. Correlate clinically. Left knee arthroplasty. Discussed with on 09/03/17 at 5:59 p.m..
[2017-09-03] MEDS ORDERED: Meropenem 1 GM in Sodium Chloride 0.9% 100 ML IVPB STA (18:06)
[2017-09-03] MEDS ORDERED: Vancomycin 1 g Inj ONE (18:13)
--- NOTE | 2017-09-03 18:13 | CP.PCM.HP ---
History of Present Illness - History of Present Illness History of Present Illness: 67 yo male with history of HTN, COPD and OA sent back for surgery tomorrow because of non-healing post-op wound on the left knee. Patient had multiple surgeries on the left knee since he had left TKR in April 11, 2016 after failing conservative management for osteoarthritis. The knee was complicated with dehiscence and multiple infections. The wound remained open and failed to heal oozing with dark serous materials. Present on Admission - Present on Admission Any Indicators Present on Admission: No History of DVT/PE: No History of Uncontrolled Diabetes: No Urinary Catheter: No Decubitus Ulcer Present: No Review of Systems - Review of Systems All systems: reviewed and no additional remarkable complaints except (aside from those mentioned above, 12 point system review were negative by me) Past Patient History - Infectious Disease Hx of Infectious Diseases: None - Tetanus Immunizations Tetanus Immunization: Unknown - Past Medical History & Family History Past Medical History?: Yes - Past Social History Smoking Status: Light Smoker < 10 Cigarettes Daily Alcohol: Occasional Drugs: Denies - CARDIAC Hx Hypercholesterolemia: Yes Hx Hypertension: Yes - PULMONARY Hx Chronic Obstructive Pulmonary Disease (COPD): Yes - NEUROLOGICAL Hx Neurological Disorder: No - HEENT Hx HEENT Problems: No - RENAL Hx Chronic Kidney Disease: No - ENDOCRINE/METABOLIC Hx Endocrine Disorders: No - HEMATOLOGICAL/ONCOLOGICAL Hx Anemia: Yes - INTEGUMENTARY Hx Dermatological Problems: No - MUSCULOSKELETAL/RHEUMATOLOGICAL Hx Arthritis: Yes - GASTROINTESTINAL Hx Gastrointestinal Disorders: No - GENITOURINARY/GYNECOLOGICAL Hx Genitourinary Disorders: Yes Hx Prostate Problems: Yes Other/Comment: BPH - PSYCHIATRIC Hx Substance Use: No - SURGICAL HISTORY Hx Surgeries: Yes Hx Arthroscopy: Yes (BOTH KNEE) Hx Joint Replacement: Yes (right TKR, 2014; left TKR and revision, 2015, Removal Hardware April 2017) Hx Orthopedic Surgery: Yes (TKR) Other/Comment: LEFT KNEE SURGERY-DUE TO INFECTION - ANESTHESIA Hx Anesthesia: Yes Hx Anesthesia Reactions: No Hx Malignant Hyperthermia: No Meds Allergies/Adverse Reactions: Allergies Allergy/AdvReac Type Severity Reaction Status Date / Time grass pollen Allergy SWELLING Verified 05/09/17 11:22 Physical Exam - Constitutional Appears: No Acute Distress - Head Exam Head Exam: ATRAUMATIC - Eye Exam Eye Exam: absent: Scleral icterus - ENT Exam ENT Exam: Mucous Membranes Moist - Neck Exam Neck exam: Negative for: Meningismus - Respiratory Exam Respiratory Exam: absent: Rhonchi, Wheezes, Respiratory Distress - Cardiovascular Exam Cardiovascular Exam: REGULAR RHYTHM, +S1, +S2 - GI/Abdominal Exam GI & Abdominal Exam: Soft. absent: Tenderness - Rectal Exam Rectal Exam: Deferred - Extremities Exam Extremities exam: Negative for: full ROM, normal inspection (left knee wound gaped open draining serosanguinus fluid) - Neurological Exam Neurological exam: Alert, Oriented x3 - Psychiatric Exam Psychiatric exam: Normal Affect - Skin Skin Exam: Dry, Intact Results - Vital Signs Recent Vital Signs: Last Vital Signs Temp 98.3 F 09/03/17 17:02 Pulse 91 H 09/03/17 17:02 Resp 17 09/03/17 17:02 BP 145/91 H 09/03/17 17:02 Pulse Ox 98 09/03/17 17:36 - Labs Result Diagrams: 09/03/17 16:14 09/03/17 16:14 Labs: Laboratory Results - last 24 hr 09/03/17 09/03/17 09/03/17 16:14 16:14 16:14 WBC 7.0 RBC 3.47 L Hgb 11.1 L Hct 32.7 L MCV 94.2 H D MCH 31.9 H MCHC 33.9 RDW 14.8 H Plt Count 609 H D MPV 7.4 Neut % (Auto) 66.7 Lymph % (Auto) 19.3 L Daniels % (Auto) 9.8 Eos % (Auto) 3.7 Baso % (Auto) 0.5 Neut # 4.7 Lymph # 1.4 Daniels # 0.7 Eos # 0.3 Baso # 0.0 PT 12.6 INR 1.1 APTT 28.6 Sodium 144 Potassium 3.8 Chloride 105 Carbon Dioxide 24 Anion Gap 18 BUN 7 L Creatinine 0.9 Est GFR ( Amer) > 60 Est GFR (Non-Af Amer) > 60 Random Glucose 105 Calcium 9.5 Total Bilirubin 0.3 AST 49 ALT 49 Alkaline Phosphatase 107 Total Protein 8.0 Albumin 4.0 Globulin 4.0 H Albumin/Globulin Ratio 1.0 Blood Type Antibody Screen BBK History Checked 09/03/17 16:14 WBC RBC Hgb Hct MCV MCH MCHC RDW Plt Count MPV Neut % (Auto) Lymph % (Auto) Daniels % (Auto) Eos % (Auto) Baso % (Auto) Neut # Lymph # Daniels # Eos # Baso # PT INR APTT Sodium Potassium Chloride Carbon Dioxide Anion Gap BUN Creatinine Est GFR ( Amer) Est GFR (Non-Af Amer) Random Glucose Calcium Total Bilirubin AST ALT Alkaline Phosphatase Total Protein Albumin Globulin Albumin/Globulin Ratio Blood Type B POSITIVE Antibody Screen Negative BBK History Checked Patient has bt Assessment & Plan (1) 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 resume Meropenem and Vanco. follow up blood culture. for surgery tomorrow (2) HTN (hypertension) Status: Chronic Comment: BP stable. continue Losartan (3) COPD (chronic obstructive pulmonary disease) Status: Chronic Comment: asymptomatic. Advair 1 puff q 12hrs
[2017-09-03] MEDS: Meropenem 1 GM in Sodium Chloride 0.9% 100 ML IVPB SCH (21:03)
[2017-09-03] MEDS ORDERED: Oxycodone/Acetaminophen 5/325 mg Tab ONE (21:04)
[2017-09-03] MEDS: Fluticasone-Salmeterol 500-50mcg Diskus IH SCH (21:04)
[2017-09-03] MEDS: Oxycodone/Acetaminophen 5/325 mg Tab PO PRN (21:05)
[2017-09-03] MEDS ORDERED: HYDROmorphone 0.5 mg/0.5 ml ISec IVP STA (23:15)
[2017-09-04] MEDS: Fluticasone-Salmeterol 500-50mcg Diskus IH SCH ×3 (06:23→17:17)
[2017-09-04] MEDS: Potassium Ch 20mEq in D5-1/2NS 1,000 ML IV SCH ×3 (06:24→22:26)
[2017-09-04 06:37] LABS: BASO % 0.4 % (0.0-2.0); EOS # 0.3 K/uL (0.0-0.7); EOS % 4.7 % (0.0-4.0); HEMATOCRIT 30.9 % (35.0-51.0); LYMPH % 31.4 % (20.0-40.0); MEAN CORPUSCULAR HEMOGLOBIN 31.7 pg (27.0-31.0); MEAN CORPUSCULAR HGB CONC 33.7 g/dL (33.0-37.0); MEAN PLATELET VOLUME 7.3 fl (7.2-11.7); MONO # 0.7 K/uL (0.0-0.8); MONO % 11.1 % (0.0-10.0); NEUT # 3.4 K/uL (1.8-7.0); NEUT % 52.4 % (50.0-75.0); NRBC % 0.2 % (0.0-0.0); RED CELL DISTRIBUTION WIDTH 14.8 % (11.5-14.5); WHITE BLOOD COUNT 6.5 K/uL (4.8-10.8)
[2017-09-04] MEDS: Oxycodone/Acetaminophen 5/325 mg Tab PO PRN ×2 (06:45→22:24)
[2017-09-04 06:46] LABS: BLOOD UREA NITROGEN 7 mg/dl (9-20); CALCIUM 8.9 mg/dL (8.4-10.2); CARBON DIOXIDE 24 mmol/L (22-30); CHLORIDE 108 mmol/L (98-107); GFR AFRICAN-AMERICAN > 60; GLUCOSE,RANDOM 104 mg/dL (75-110); POTASSIUM 3.7 MMOL/L (3.6-5.0); SODIUM 143 mmol/l (132-148)
[2017-09-04] MEDS ORDERED: Thrombin Topical 5,000 IU Spray Kit ONE (07:52)
[2017-09-04] MEDS ORDERED: Absorbable Gelatin Sponge Size 100 ONE (07:52)
[2017-09-04] MEDS: Meropenem 1 GM in Sodium Chloride 0.9% 100 ML IVPB SCH ×2 (09:19→21:00)
[2017-09-04] MEDS: Pantoprazole 40 mg EC Tab PO SCH (09:20)
--- NOTE | 2017-09-04 10:35 | CARD ---
APPROVED REPORT EKG Measurement Heart [id number] <Conclusion> Normal sinus rhythm Septal infarct, age undetermined Abnormal ECG
--- NOTE | 2017-09-04 11:00 | CP.PCM.CON ---
History of Present Illness - History of Present Illness History of Present Illness: THE PATIENT IS A 67 YEAR OLD MALE WHO HAD LEFT KNEE REPLACEMENT SURGERY IN 2016 AND HAS RECURRENT WOUND DEHISCENCE EPISODES WITH SURGICAL REPAIR AND IV ANTIBIOTICS AND SUBACUTE REHAB. HE WAS RECENTLY DISCHARGED FROM [facility] FOLLOWING THE LAST SUCH EPISODE AND WAS AT SUBACUTE REHAB WHEN THERE A NEW SKIN OPENING AT THE LEFT KNEE SURGICAL SITE AND HE IS PRESENTLY READMITTED TO [facility] FOR TREATMENT. HE DENIES ANY FALL OR TRAUMA TO THE LEFT KNEE STATING THAT THE WOUND JUST OPENED. HE ALSO HAS A HISTORY OF HYPERTENSION AND HYPERLIPIDEMIA. THERE IS NO HISTORY OF CHEST PAIN, CAD OR LA. Past Patient History - Infectious Disease Hx of Infectious Diseases: None - Tetanus Immunizations Tetanus Immunization: Unknown - Past Medical History & Family History Past Medical History?: Yes - Past Social History Smoking Status: Never Smoked - CARDIAC Hx Hypercholesterolemia: Yes Hx Hypertension: Yes - PULMONARY Hx Chronic Obstructive Pulmonary Disease (COPD): Yes - NEUROLOGICAL Hx Neurological Disorder: No - HEENT Hx HEENT Problems: No - RENAL Hx Chronic Kidney Disease: No - ENDOCRINE/METABOLIC Hx Endocrine Disorders: No - HEMATOLOGICAL/ONCOLOGICAL Hx Anemia: Yes - INTEGUMENTARY Hx Dermatological Problems: No - MUSCULOSKELETAL/RHEUMATOLOGICAL Hx Arthritis: Yes Hx Falls: No - GASTROINTESTINAL Hx Gastrointestinal Disorders: No - GENITOURINARY/GYNECOLOGICAL Hx Genitourinary Disorders: Yes Hx Prostate Problems: Yes Other/Comment: BPH - PSYCHIATRIC Hx Substance Use: No - SURGICAL HISTORY Hx Surgeries: Yes Hx Arthroscopy: Yes (BOTH KNEE) Hx Joint Replacement: Yes (right TKR, 2014; left TKR and revision, 2016, Removal Hardware April 2017) Hx Orthopedic Surgery: Yes (TKR) Other/Comment: LEFT KNEE SURGERY-DUE TO INFECTION - ANESTHESIA Hx Anesthesia: Yes Hx Anesthesia Reactions: No Hx Malignant Hyperthermia: No Meds Allergies/Adverse Reactions: Allergies Allergy/AdvReac Type Severity Reaction Status Date / Time grass pollen Allergy SWELLING Verified 05/09/17 11:22 - Medications Medications: Current Medications Acetaminophen (Tylenol 325mg Tab) 650 mg PO Q6H PRN PRN Reason: Pain, Mild (1-3) Atorvastatin Calcium (Lipitor) 40 mg PO HS [facility] Last Admin: 09/03/17 22:24 Dose: 40 mg Docusate Sodium (Colace) 100 mg PO BID [facility] Last Admin: 09/04/17 09:16 Dose: Not Given Ferrous Sulfate (Feosol) 325 mg PO BID [facility] Last Admin: 09/04/17 09:17 Dose: Not Given Vancomycin HCl 500 mg/ Sodium (Chloride) 100 mls @ 100 mls/hr IVPB Q12 CONNIE PRN Reason: Protocol Last Admin: 09/04/17 09:19 Dose: 100 mls/hr Meropenem 1 gm/ Sodium (Chloride) 100 mls @ 100 mls/hr IVPB Q12 CONNIE PRN Reason: Protocol Last Admin: 09/04/17 09:19 Dose: 100 mls/hr Potassium Chloride/Dextrose/Sod Cl (Potassium Chl 20 Meq In D5-1/2ns) 1,000 mls @ 125 mls/hr IV .Q8H [facility] Stop: 09/05/17 05:59 Last Admin: 09/04/17 06:24 Dose: 125 mls/hr Lactobacillus Acidophilus (Bacid Acidophilus) 1 cap PO BID [facility] Losartan Potassium (Cozaar) 50 mg PO DAILY [facility] Last Admin: 09/04/17 09:17 Dose: Not Given Magnesium Hydroxide (Milk Of Magnesia) 30 ml PO HS PRN PRN Reason: Constipation Morphine Sulfate (Morphine) 2 mg IVP Q6 PRN PRN Reason: Pain, severe (8-10) Oxycodone/Acetaminophen (Percocet 5/325 Mg Tab) 1 tab PO Q4H PRN PRN Reason: Pain, severe (8-10) Stop: 09/06/17 17:47 Last Admin: 09/04/17 06:45 Dose: 1 tab Pantoprazole Sodium (Protonix Ec Tab) 40 mg PO DAILY [facility] Last Admin: 09/04/17 09:20 Dose: Not Given Fluticasone/Salmeterol (Advair Diskus 500/50) 1 puff IH Q12H [facility] Last Admin: 09/04/17 06:26 Dose: Not Given Tamsulosin HCl (Flomax) 0.4 mg PO QPM [facility] Last Admin: 09/03/17 21:02 Dose: 0.4 mg Physical Exam - Respiratory Exam Respiratory Exam: Clear to Auscultation Bilateral - Cardiovascular Exam Cardiovascular Exam: REGULAR RHYTHM, +S1, +S2 - Extremities Exam Additional comments: LEFT KNEE SURGICAL WOUND SITE WITH DRESSINGS - Additional Findings Additional findings: EKG NSR(NO OLD SEPTAL WALL LA IN MY OPINION) Results - Vital Signs Recent Vital Signs: Last Vital Signs Temp 97.3 F L 09/04/17 07:47 Pulse 59 L 09/04/17 07:47 Resp 20 09/04/17 07:47 BP 124/79 09/04/17 07:47 Pulse Ox 99 09/04/17 07:47 - Labs Result Diagrams: 09/04/17 05:30 09/04/17 05:30 Labs: Laboratory Results - last 24 hr 09/03/17 09/03/17 09/03/17 16:14 16:14 16:14 WBC 7.0 RBC 3.47 L Hgb 11.1 L Hct 32.7 L MCV 94.2 H D MCH 31.9 H MCHC 33.9 RDW 14.8 H Plt Count 609 H D MPV 7.4 Neut % (Auto) 66.7 Lymph % (Auto) 19.3 L [place] % (Auto) 9.8 Eos % (Auto) 3.7 Baso % (Auto) 0.5 Neut # 4.7 Lymph # 1.4 [place] # 0.7 Eos # 0.3 Baso # 0.0 PT 12.6 INR 1.1 APTT 28.6 Sodium 144 Potassium 3.8 Chloride 105 Carbon Dioxide 24 Anion Gap 18 BUN 7 L Creatinine 0.9 Est GFR ( Amer) > 60 Est GFR (Non-Af Amer) > 60 Random Glucose 105 Calcium 9.5 Total Bilirubin 0.3 AST 49 ALT 49 Alkaline Phosphatase 107 Total Protein 8.0 Albumin 4.0 Globulin 4.0 H Albumin/Globulin Ratio 1.0 Blood Type Antibody Screen BBK History Checked 09/03/17 09/04/17 09/04/17 16:14 05:30 05:30 WBC 6.5 RBC 3.29 L Hgb 10.4 L Hct 30.9 L MCV 94.0 MCH 31.7 H MCHC 33.7 RDW 14.8 H Plt Count 576 H MPV 7.3 Neut % (Auto) 52.4 Lymph % (Auto) 31.4 [place] % (Auto) 11.1 H Eos % (Auto) 4.7 H Baso % (Auto) 0.4 Neut # 3.4 Lymph # 2.0 [place] # 0.7 Eos # 0.3 Baso # 0.0 PT INR APTT Sodium 143 Potassium 3.7 Chloride 108 H Carbon Dioxide 24 Anion Gap 15 BUN 7 L Creatinine 0.9 Est GFR ( Amer) > 60 Est GFR (Non-Af Amer) > 60 Random Glucose 104 Calcium 8.9 Total Bilirubin AST ALT Alkaline Phosphatase Total Protein Albumin Globulin Albumin/Globulin Ratio Blood Type B POSITIVE Antibody Screen Negative BBK History Checked Patient has bt Assessment & Plan - Assessment and Plan (Free Text) Assessment: LEFT KNEE REPLACEMENT WITH WOUND DEHISCENCE HYPERTENSION HYPERLIPIDEMIA Plan: CONTINUE LOSARTAN, AMLODIPINE AND ANTIBIOTICS PER DR PITTMAN AND ID PATIENT IS CLEARED FOR SURGERY FROM [facility]
[2017-09-04 13:22] LABS: RBC URINE 2 /hpf (0-3); URINE BILIRUBIN NEGATIVE (NEGATIVE); URINE BLOOD NEGATIVE (NEGATIVE); URINE COLOR YELLOW (YELLOW); URINE GLUCOSE (UA) NEG (Normal); URINE KETONE NEGATIVE (NEGATIVE); URINE LEUKOCYTE ESTERASE NEG Leu/uL (Negative); URINE PROTEIN NEGATIVE (NEGATIVE); URINE UROBILINOGEN 0.2-1.0 mg/dL (0.2-1.0); WBC URINE 1 /hpf (0-5)
--- NOTE | 2017-09-04 14:25 | CP.PCM.CON ---
History of Present Illness - History of Present Illness History of Present Illness: orthopedic consultation Dr. Aguilar 67[address] Aguilar admitted for drainage from left knee. Patient is s/p primary TKR 04/11/2016, I&D evacuation of hematoma revision/poly exchange on 05/07 underwent course of IV antibiotics. Patient later found to have loosening of components and underwent explant and antibiotic spacer placement . Patient then had 6 week course of antibiotics and had I&D/aspiration/ cultures on 06/27/2017, cultures were negative, and patient then had revision TKR 07/24/2017. Patient has had draining wound on operative knee that has failed conservative mgmt, and now requires operative I&D as per Dr. Aguilar. Review of Systems - Review of Systems All systems: reviewed and no additional remarkable complaints except - Musculoskeletal Musculoskeletal: As Per HPI - Integumentary Integumentary: As Per HPI Past Patient History - Infectious Disease Hx of Infectious Diseases: None - Tetanus Immunizations Tetanus Immunization: Unknown - Past Medical History & Family History Past Medical History?: Yes Past Family History: Reviewed and not pertinent - Past Social History Smoking Status: Never Smoked - CARDIAC Hx Hypercholesterolemia: Yes Hx Hypertension: Yes - PULMONARY Hx Chronic Obstructive Pulmonary Disease (COPD): Yes - NEUROLOGICAL Hx Neurological Disorder: No - HEENT Hx HEENT Problems: No - RENAL Hx Chronic Kidney Disease: No - ENDOCRINE/METABOLIC Hx Endocrine Disorders: No - HEMATOLOGICAL/ONCOLOGICAL Hx Anemia: Yes - INTEGUMENTARY Hx Dermatological Problems: No - MUSCULOSKELETAL/RHEUMATOLOGICAL Hx Arthritis: Yes Hx Falls: No - GASTROINTESTINAL Hx Gastrointestinal Disorders: No - GENITOURINARY/GYNECOLOGICAL Hx Genitourinary Disorders: Yes Hx Prostate Problems: Yes Other/Comment: BPH - PSYCHIATRIC Hx Substance Use: No - SURGICAL HISTORY Hx Surgeries: Yes Hx Arthroscopy: Yes (BOTH KNEE) Hx Joint Replacement: Yes (right TKR, 2014; left TKR and revision, 2015, Removal Hardware April 2017) Hx Orthopedic Surgery: Yes (TKR) Other/Comment: LEFT KNEE SURGERY-DUE TO INFECTION - ANESTHESIA Hx Anesthesia: Yes Hx Anesthesia Reactions: No Hx Malignant Hyperthermia: No Meds Allergies/Adverse Reactions: Allergies Allergy/AdvReac Type Severity Reaction Status Date / Time grass pollen Allergy SWELLING Verified 05/09/17 11:22 - Medications Medications: Current Medications Acetaminophen (Tylenol 325mg Tab) 650 mg PO Q6H PRN PRN Reason: Pain, Mild (1-3) Atorvastatin Calcium (Lipitor) 40 mg PO HS [facility] Last Admin: 09/03/17 22:24 Dose: 40 mg Docusate Sodium (Colace) 100 mg PO BID [facility] Last Admin: 09/04/17 09:16 Dose: Not Given Ferrous Sulfate (Feosol) 325 mg PO BID [facility] Last Admin: 09/04/17 09:17 Dose: Not Given Vancomycin HCl 500 mg/ Sodium (Chloride) 100 mls @ 100 mls/hr IVPB Q12 CONNIE PRN Reason: Protocol Last Admin: 09/04/17 09:19 Dose: 100 mls/hr Meropenem 1 gm/ Sodium (Chloride) 100 mls @ 100 mls/hr IVPB Q12 [facility] PRN Reason: Protocol Last Admin: 09/04/17 09:19 Dose: 100 mls/hr Potassium Chloride/Dextrose/Sod Cl (Potassium Chl 20 Meq In D5-1/2ns) 1,000 mls @ 125 mls/hr IV .Q8H [facility] Stop: 09/05/17 05:59 Last Admin: 09/04/17 06:24 Dose: 125 mls/hr Lactobacillus Acidophilus (Bacid Acidophilus) 1 cap PO BID [facility] Losartan Potassium (Cozaar) 50 mg PO DAILY [facility] Last Admin: 09/04/17 09:17 Dose: Not Given Magnesium Hydroxide (Milk Of Magnesia) 30 ml PO HS PRN PRN Reason: Constipation Morphine Sulfate (Morphine) 2 mg IVP Q6 PRN PRN Reason: Pain, severe (8-10) Last Admin: 09/04/17 12:37 Dose: 2 mg Oxycodone/Acetaminophen (Percocet 5/325 Mg Tab) 1 tab PO Q4H PRN PRN Reason: Pain, severe (8-10) Stop: 09/06/17 17:47 Last Admin: 09/04/17 06:45 Dose: 1 tab Pantoprazole Sodium (Protonix Ec Tab) 40 mg PO DAILY [facility] Last Admin: 09/04/17 09:20 Dose: Not Given Fluticasone/Salmeterol (Advair Diskus 500/50) 1 puff IH Q12H [facility] Last Admin: 09/04/17 06:26 Dose: Not Given Tamsulosin HCl (Flomax) 0.4 mg PO QPM [facility] Last Admin: 09/03/17 21:02 Dose: 0.4 mg Physical Exam - Constitutional Appears: Well, No Acute Distress - Respiratory Exam Respiratory Exam: NORMAL BREATHING PATTERN - Back Exam Additional comments: Left knee: moderate serous drainage from deep sinus proximal medial aspect of knee, approx 1cm in diameter, hardware visible. Incision line is intact. Calves soft Nt neg homans, +ROM ankle/toes, sensation intact skin intact outside of single draining wound - Neurological Exam Neurological exam: Alert, Oriented x3 - Psychiatric Exam Psychiatric exam: Normal Affect, Normal Mood - Skin Skin Exam: Normal Color, Warm Results - Vital Signs Recent Vital Signs: Last Vital Signs Temp 97.3 F L 09/04/17 07:47 Pulse 59 L 09/04/17 07:47 Resp 20 09/04/17 07:47 BP 124/79 09/04/17 07:47 Pulse Ox 99 09/04/17 07:47 - Labs Result Diagrams: 09/04/17 05:30 09/04/17 05:30 Labs: Laboratory Results - last 24 hr 09/03/17 09/03/17 09/03/17 16:14 16:14 16:14 WBC 7.0 RBC 3.47 L Hgb 11.1 L Hct 32.7 L MCV 94.2 H D MCH 31.9 H MCHC 33.9 RDW 14.8 H Plt Count 609 H D MPV 7.4 Neut % (Auto) 66.7 Lymph % (Auto) 19.3 L [place] % (Auto) 9.8 Eos % (Auto) 3.7 Baso % (Auto) 0.5 Neut # 4.7 Lymph # 1.4 [place] # 0.7 Eos # 0.3 Baso # 0.0 PT 12.6 INR 1.1 APTT 28.6 Sodium 144 Potassium 3.8 Chloride 105 Carbon Dioxide 24 Anion Gap 18 BUN 7 L Creatinine 0.9 Est GFR ( Amer) > 60 Est GFR (Non-Af Amer) > 60 Random Glucose 105 Calcium 9.5 Total Bilirubin 0.3 AST 49 ALT 49 Alkaline Phosphatase 107 Total Protein 8.0 Albumin 4.0 Globulin 4.0 H Albumin/Globulin Ratio 1.0 Urine Color Urine Clarity Urine pH Ur Specific [place] Urine Protein Urine Glucose (UA) Urine Ketones Urine Blood Urine Nitrate Urine Bilirubin Urine Urobilinogen Ur Leukocyte Esterase Urine RBC (Auto) Urine Microscopic WBC Ur Squamous Epith Cells Blood Type Antibody Screen BBK History Checked 09/03/17 09/04/17 09/04/17 16:14 05:30 05:30 WBC 6.5 RBC 3.29 L Hgb 10.4 L Hct 30.9 L MCV 94.0 MCH 31.7 H MCHC 33.7 RDW 14.8 H Plt Count 576 H MPV 7.3 Neut % (Auto) 52.4 Lymph % (Auto) 31.4 [place] % (Auto) 11.1 H Eos % (Auto) 4.7 H Baso % (Auto) 0.4 Neut # 3.4 Lymph # 2.0 [place] # 0.7 Eos # 0.3 Baso # 0.0 PT INR APTT Sodium 143 Potassium 3.7 Chloride 108 H Carbon Dioxide 24 Anion Gap 15 BUN 7 L Creatinine 0.9 Est GFR ( Amer) > 60 Est GFR (Non-Af Amer) > 60 Random Glucose 104 Calcium 8.9 Total Bilirubin AST ALT Alkaline Phosphatase Total Protein Albumin Globulin Albumin/Globulin Ratio Urine Color Urine Clarity Urine pH Ur Specific [place] Urine Protein Urine Glucose (UA) Urine Ketones Urine Blood Urine Nitrate Urine Bilirubin Urine Urobilinogen Ur Leukocyte Esterase Urine RBC (Auto) Urine Microscopic WBC Ur Squamous Epith Cells Blood Type B POSITIVE Antibody Screen Negative BBK History Checked Patient has bt 09/04/17 13:00 WBC RBC Hgb Hct MCV MCH MCHC RDW Plt Count MPV Neut % (Auto) Lymph % (Auto) [place] % (Auto) Eos % (Auto) Baso % (Auto) Neut # Lymph # [place] # Eos # Baso # PT INR APTT Sodium Potassium Chloride Carbon Dioxide Anion Gap BUN Creatinine Est GFR ( Amer) Est GFR (Non-Af Amer) Random Glucose Calcium Total Bilirubin AST ALT Alkaline Phosphatase Total Protein Albumin Globulin Albumin/Globulin Ratio Urine Color Yellow Urine Clarity Slighty-cloudy Urine pH 5.0 Ur Specific [place] 1.015 Urine Protein Negative Urine Glucose (UA) Neg Urine Ketones Negative Urine Blood Negative Urine Nitrate Negative Urine Bilirubin Negative Urine Urobilinogen 0.2-1.0 Ur Leukocyte Esterase Neg Urine RBC (Auto) 2 Urine Microscopic WBC 1 Ur Squamous Epith Cells < 1 Blood Type Antibody Screen BBK History Checked - Impressions Impression: atient Name / ID : LUCINA PRATER / [id number] Exam Date : 09/03/2017 16:57:41 ( Approved ) Study Comment : Sex / Age : M / 67Y Creator : Kira Mitchell MD Dictator : Kira Mitchell MD Tile Classifier : Bank Advisor : Kira Mitchell MD Approver2 : Report Date : 09/03/2017 18:00:01 My Comment : Left knee radiographs Indication: Knee wound Comparison: Left knee radiographs performed 07/24/17 Findings: Left knee arthroplasty. No acute displaced fracture identified. Diffuse soft tissue swelling. Bubbles of gas/subcutaneous emphysema within the soft tissues of laterally; correlate clinically. Impression: Bubbles of gas/subcutaneous emphysema involving the lateral soft tissues. Correlate clinically. Left knee arthroplasty. Discussed with on 09/03/17 at 5:59 p.m.. Assessment & Plan (1) Postoperative wound infection Assessment and Plan: Chronic draining post operative left knee wound r/o deep infection NPO for OR today for I&D possible wound vac possible revision as per Dr. Aguilar med/cardio appreciated wound and blood cultures pending f/u labs Status: Acute
--- NOTE | 2017-09-04 14:58 | CT ---
PROCEDURE: CT of the Left Knee. HISTORY: post-op wound COMPARISON: Left knee CT without 05/06/2017, left knee radiographs 09/03/2017. TECHNIQUE: Contiguous axial images of the left knee were obtained. Coronal and sagittal reformats were generated. Total radiation dose DLP = 427.34 mGy-cm. This CT exam was performed using one or more of the following dose reduction techniques: Automated exposure control, adjustment of the mA and/or kV according to patient size, and/or use of iterative reconstruction technique. FINDINGS: The previously revised left total knee replacement hardware appears intact without fracture or displacement. No definite evidence to suggest loosening including the tibial component distally. The prosthetic stem stabilizing the distal femoral and proximal tibial prosthetic components appears intact. No periosteal reaction is identified to indicate osteomyelitis or bony erosion. There is no fracture subluxation or dislocation. Inhomogeneous soft tissue changes are identified including limited emphysema in the soft tissues overlying the distal femur both medially and laterally with limited edema overlying the proximal tibia. Minimal dehiscence of an incision at the distal right femur level is appreciated with emphysematous changes deep to this level as well. Lack images intravenous contrast limits interpretation index findings may be postoperative. Clinically correlate as to the timing of potential operative procedure. Otherwise, abscesses at the upper right knee soft tissues is not excluded. Posterior compartment knee soft tissues appear grossly nonfocal. Artifact from total knee replacement hardware limits interpretation IMPRESSION: Prior it left total knee replacement revision again identified with no evidence to suggest loosening or fracture of prostatic components. No subluxation or dislocation or bony fracture. No overt CT sign of osteomyelitis at this time. However, emphysematous changes and inhomogeneous soft tissue density in the deep soft tissues of the upper left knee are identified which could be postoperative related. A small wound dehiscence is also appreciated as well. Clinically correlate correlate as to the timing of potential recent procedure as an abscess is not completely excluded.
--- NOTE | 2017-09-04 16:40 | CP.PCM.PN ---
Subjective - Date & Time of Evaluation Date of Evaluation: 09/04/17 Time of Evaluation: 16:00 - Subjective Subjective: Patient seen and examined. Complaining of the delay in his surgery. Objective - Vital Signs/Intake and Output Vital Signs (last 24 hours): Temp Pulse Resp BP Pulse Ox 97.3 F L 59 L 20 124/79 99 09/04/17 07:47 09/04/17 07:47 09/04/17 07:47 09/04/17 07:47 09/04/17 07:47 - Medications Medications: Current Medications Acetaminophen (Tylenol 325mg Tab) 650 mg PO Q6H PRN PRN Reason: Pain, Mild (1-3) Atorvastatin Calcium (Lipitor) 40 mg PO HS [facility] Last Admin: 09/03/17 22:24 Dose: 40 mg Docusate Sodium (Colace) 100 mg PO BID [facility] Last Admin: 09/04/17 09:16 Dose: Not Given Ferrous Sulfate (Feosol) 325 mg PO BID [facility] Last Admin: 09/04/17 09:17 Dose: Not Given Vancomycin HCl 500 mg/ Sodium (Chloride) 100 mls @ 100 mls/hr IVPB Q12 CONNIE PRN Reason: Protocol Last Admin: 09/04/17 09:19 Dose: 100 mls/hr Meropenem 1 gm/ Sodium (Chloride) 100 mls @ 100 mls/hr IVPB Q12 CONNIE PRN Reason: Protocol Last Admin: 09/04/17 09:19 Dose: 100 mls/hr Potassium Chloride/Dextrose/Sod Cl (Potassium Chl 20 Meq In D5-1/2ns) 1,000 mls @ 125 mls/hr IV .Q8H [facility] Stop: 09/05/17 05:59 Last Admin: 09/04/17 06:24 Dose: 125 mls/hr Lactobacillus Acidophilus (Bacid Acidophilus) 1 cap PO BID [facility] Losartan Potassium (Cozaar) 50 mg PO DAILY [facility] Last Admin: 09/04/17 09:17 Dose: Not Given Magnesium Hydroxide (Milk Of Magnesia) 30 ml PO HS PRN PRN Reason: Constipation Morphine Sulfate (Morphine) 2 mg IVP Q6 PRN PRN Reason: Pain, severe (8-10) Last Admin: 09/04/17 12:37 Dose: 2 mg Oxycodone/Acetaminophen (Percocet 5/325 Mg Tab) 1 tab PO Q4H PRN PRN Reason: Pain, severe (8-10) Stop: 09/06/17 17:47 Last Admin: 09/04/17 06:45 Dose: 1 tab Pantoprazole Sodium (Protonix Ec Tab) 40 mg PO DAILY [facility] Last Admin: 09/04/17 09:20 Dose: Not Given Fluticasone/Salmeterol (Advair Diskus 500/50) 1 puff IH Q12H [facility] Last Admin: 09/04/17 06:26 Dose: Not Given Tamsulosin HCl (Flomax) 0.4 mg PO QPM [facility] Last Admin: 09/03/17 21:02 Dose: 0.4 mg - Labs Labs: 09/04/17 05:30 09/04/17 05:30 PT 12.6 Seconds (9.8-13.1) 09/03/17 16:14 INR 1.1 (0.9-1.2) 09/03/17 16:14 APTT 28.6 Seconds (25.6-37.1) 09/03/17 16:14 - Constitutional Appears: No Acute Distress - Head Exam Head Exam: ATRAUMATIC - Eye Exam Eye Exam: absent: Scleral icterus - ENT Exam ENT Exam: Mucous Membranes Moist - Neck Exam Neck Exam: absent: Meningismus - Respiratory Exam Respiratory Exam: absent: Rhonchi, Wheezes, Respiratory Distress - Cardiovascular Exam Cardiovascular Exam: REGULAR RHYTHM, +S1, +S2 - GI/Abdominal Exam GI & Abdominal Exam: Soft. 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 Patient had multiple surgeries on that knee since he first had left TKR in April 11, 2016 after failing conservative management for osteoarthritis. The knee was complicated with dehiscence and multiple infections. The wound remained open oozing with dark serous materials and failed to heal. (1) Septic joint of left knee joint continue IV Meropenem and Vanco as per Dr Kellogg follow up blood culture waiting for surgery (2) HTN (hypertension) BP stable. continue Losartan (3) COPD (chronic obstructive pulmonary disease) asymptomatic, no wheezing, no SOB Advair 1 puff q 12hrs
[2017-09-04] MEDS: Lactobacillus Acidophilus 500 MU Cap PO SCH (17:16)
[2017-09-04] MEDS ORDERED: Oxycodone/Acetaminophen 5/325 mg Tab PO PRN ×2 (18:50)
--- NOTE | 2017-09-04 18:54 | PCM.SURG1 ---
Surgeon's Initial Post Op Note - Surgeon's Notes Surgeon: Dr. Roth Assembly Instructions Writer: Yocasta Page PGY-1, [place] NOVOA Type of Anesthesia: General Endo Anesthesia Administered By: Dr. Schroeder Pre-Operative Diagnosis: left septic knee infection Operative Findings: see op report. vancomycin antibiotic beads Post-Operative Diagnosis: same Operation Performed: incision and drainage of left knee joint with poly exchange Specimen/Specimens Removed: previous poly removed Estimated Blood Loss: EBL {In ML}: 20 Blood Products Given: N/A Drains Used: [place] Post-Op Condition: Good Date of Surgery/Procedure: 09/04/17 Time of Surgery/Procedure: 18:00
--- NOTE | 2017-09-05 04:02 | CON ---
DATE: LOCATION: The patient presently on room 654, bed [address] [place] [address]. HISTORY OF PRESENT ILLNESS: The patient is a 67-year-old male well known to me from previous admissions. He has had past history of hypertension, COPD, and osteoarthritis. He has had history of nonhealing postoperative wounds on the left knee. He has had multiple surgeries on this knee since he had a left TKR in 03/2016. Postoperatively, he had dehiscence and multiple infections. At present time, he had been at the [facility] for acute rehab, and I am waiting for the records from there as I am unsure as to whether he received the vancomycin and meropenem that he was sent out on or had received cephalexin. This I discussed with the patient as I have no records. He told me that they had stopped the IV antibiotics at [facility] at some point, although I know not when. At present time, he is being admitted for surgery once again on the left knee. PHYSICAL EXAMINATION: HEENT: Within normal limits. NECK: Supple. LUNGS: Clear, but decreased. HEART: Regular sinus rhythm. ABDOMEN: Soft. Positive bowel sounds. No tenderness. EXTREMITIES: Right knee has presently no CCE. Left knee has limited movement, and he has opening on the lateral side of the knee with purulent drainage that was apparently cultured in the emergency room last night, and probably we will defer the culture by Dr. Aguilar. ASSESSMENT AND PLAN: This is a quite difficult case. There has been multiple infections, and at present time, I would continue with the vancomycin and meropenem, although I am increasing the dose of vancomycin for the initial period. Clark Kellogg MD ASHLYN
[2017-09-05] MEDS: Fluticasone-Salmeterol 500-50mcg Diskus IH SCH ×2 (06:40→20:59)
[2017-09-05] MEDS: Oxycodone/Acetaminophen 5/325 mg Tab PO PRN (06:52)
[2017-09-05] MEDS: Lactobacillus Acidophilus 500 MU Cap PO SCH ×2 (08:54→17:17)
[2017-09-05] MEDS: Pantoprazole 40 mg EC Tab PO SCH (08:55)
[2017-09-05] MEDS: Meropenem 1 GM in Sodium Chloride 0.9% 100 ML IVPB SCH ×2 (08:58→20:45)
--- NOTE | 2017-09-05 10:59 | CP.PCM.PN ---
Subjective - Date & Time of Evaluation Date of Evaluation: 09/05/17 Time of Evaluation: 08:15 - Subjective Subjective: NO NEW COMPLAINTS Objective - Vital Signs/Intake and Output Vital Signs (last 24 hours): Temp Pulse Resp BP Pulse Ox 98.2 F 66 20 136/77 95 09/05/17 08:06 09/05/17 08:59 09/05/17 08:06 09/05/17 08:59 09/05/17 08:06 - Medications Medications: Current Medications Acetaminophen (Tylenol 325mg Tab) 650 mg PO Q6H PRN PRN Reason: Pain, Mild (1-3) Atorvastatin Calcium (Lipitor) 40 mg PO HS [facility] Last Admin: 09/04/17 21:01 Dose: 40 mg Docusate Sodium (Colace) 100 mg PO BID [facility] Last Admin: 09/05/17 08:54 Dose: Not Given Ferrous Sulfate (Feosol) 325 mg PO BID [facility] Last Admin: 09/05/17 08:55 Dose: Not Given Meropenem 1 gm/ Sodium (Chloride) 100 mls @ 100 mls/hr IVPB Q12 [facility] PRN Reason: Protocol Last Admin: 09/05/17 08:58 Dose: 100 mls/hr Vancomycin HCl 1 gm/ Sodium (Chloride) 250 mls @ 166.667 mls/hr IVPB Q12 [facility] Last Admin: 09/05/17 10:33 Dose: 166.667 mls/hr Lactobacillus Acidophilus (Bacid Acidophilus) 1 cap PO BID [facility] Last Admin: 09/05/17 08:54 Dose: Not Given Losartan Potassium (Cozaar) 50 mg PO DAILY [facility] Last Admin: 09/05/17 08:59 Dose: 50 mg Magnesium Hydroxide (Milk Of Magnesia) 30 ml PO HS PRN PRN Reason: Constipation Morphine Sulfate (Morphine) 2 mg IVP Q6 PRN PRN Reason: Pain, severe (8-10) Last Admin: 09/05/17 05:59 Dose: 2 mg Oxycodone/Acetaminophen (Percocet 5/325 Mg Tab) 1 tab PO Q4H PRN PRN Reason: Pain, severe (8-10) Stop: 09/06/17 17:47 Last Admin: 09/05/17 06:52 Dose: 1 tab Pantoprazole Sodium (Protonix Ec Tab) 40 mg PO DAILY [facility] Last Admin: 09/05/17 08:55 Dose: Not Given Fluticasone/Salmeterol (Advair Diskus 500/50) 1 puff IH Q12H [facility] Last Admin: 09/05/17 06:40 Dose: Not Given Tamsulosin HCl (Flomax) 0.4 mg PO QPM [facility] Last Admin: 09/04/17 17:17 Dose: 0.4 mg - Labs Labs: 09/04/17 05:30 09/04/17 05:30 PT 12.6 Seconds (9.8-13.1) 09/03/17 16:14 INR 1.1 (0.9-1.2) 09/03/17 16:14 APTT 28.6 Seconds (25.6-37.1) 09/03/17 16:14 - Respiratory Exam Respiratory Exam: Clear to Ausculation Bilateral - Cardiovascular Exam Cardiovascular Exam: REGULAR RHYTHM, +S1, +S2 - Extremities Exam Additional comments: LEFT KNEE WITH SURGICAL DRESSINGS Assessment and Plan - Assessment and Plan (Free Text) Assessment: LEFT KNEE REPLACEMENT WITH RECURRENT WOUND DEHISCENCE HYPERTENSION HYPERLIPIDEMIA Plan: CONTINUE LOSARTAN AND ATORVASTATIN FOR SURGERY TODAY BY DR PITTMAN
[2017-09-05] MEDS ORDERED: Propofol 10 mg/ml Inj (20 ML) ONE (12:40)
[2017-09-05] MEDS ORDERED: Phenylephrine 10 mg/ml Inj ONE (12:41)
[2017-09-05] MEDS ORDERED: Neostigmine Methylsulfate 2 MG/2 ML ML IV ONE ×2 (12:44→12:47)
[2017-09-05] MEDS ORDERED: Rocuronium 10 mg/ml (5 ml) ONE ×2 (12:44→12:45)
[2017-09-05] MEDS ORDERED: Sevoflurane - Inhalation Anesthetic Liq (250 ml) ONE (12:47)
[2017-09-05] MEDS ORDERED: Ropivacaine 0.5% 30ML IV ONE (12:51)
[2017-09-05] MEDS ORDERED: Bupivacaine 0.5% Inj(30mL) ONE (12:52)
[2017-09-05] MEDS ORDERED: MethylPREDNISolone Depo 40 mg/ml Inj ONE (12:52)
[2017-09-05] MEDS ORDERED: Lidocaine 1% Inj (20ml) ONE (12:52)
--- NOTE | 2017-09-05 13:14 | CP.PCM.PN ---
Subjective - Date & Time of Evaluation Date of Evaluation: 09/05/17 Time of Evaluation: 11:30 - Subjective Subjective: Patient seen and examined. Denied any pain but felt frustrated that his surgery was cancelled yesterday. Objective - Vital Signs/Intake and Output Vital Signs (last 24 hours): Temp Pulse Resp BP Pulse Ox 98.2 F 66 20 136/77 95 09/05/17 08:06 09/05/17 08:59 09/05/17 08:06 09/05/17 08:59 09/05/17 08:06 - Medications Medications: Current Medications Acetaminophen (Tylenol 325mg Tab) 650 mg PO Q6H PRN PRN Reason: Pain, Mild (1-3) Atorvastatin Calcium (Lipitor) 40 mg PO HS [facility] Last Admin: 09/04/17 21:01 Dose: 40 mg Docusate Sodium (Colace) 100 mg PO BID [facility] Last Admin: 09/05/17 08:54 Dose: Not Given Ferrous Sulfate (Feosol) 325 mg PO BID [facility] Last Admin: 09/05/17 08:55 Dose: Not Given Meropenem 1 gm/ Sodium (Chloride) 100 mls @ 100 mls/hr IVPB Q12 [facility] PRN Reason: Protocol Last Admin: 09/05/17 08:58 Dose: 100 mls/hr Vancomycin HCl 1 gm/ Sodium (Chloride) 250 mls @ 166.667 mls/hr IVPB Q12 [facility] Last Admin: 09/05/17 10:33 Dose: 166.667 mls/hr Lactobacillus Acidophilus (Bacid Acidophilus) 1 cap PO BID [facility] Last Admin: 09/05/17 08:54 Dose: Not Given Losartan Potassium (Cozaar) 50 mg PO DAILY [facility] Last Admin: 09/05/17 08:59 Dose: 50 mg Magnesium Hydroxide (Milk Of Magnesia) 30 ml PO HS PRN PRN Reason: Constipation Morphine Sulfate (Morphine) 2 mg IVP Q6 PRN PRN Reason: Pain, severe (8-10) Last Admin: 09/05/17 05:59 Dose: 2 mg Oxycodone/Acetaminophen (Percocet 5/325 Mg Tab) 1 tab PO Q4H PRN PRN Reason: Pain, severe (8-10) Stop: 09/06/17 17:47 Last Admin: 09/05/17 06:52 Dose: 1 tab Pantoprazole Sodium (Protonix Ec Tab) 40 mg PO DAILY [facility] Last Admin: 09/05/17 08:55 Dose: Not Given Fluticasone/Salmeterol (Advair Diskus 500/50) 1 puff IH Q12H [facility] Last Admin: 09/05/17 06:40 Dose: Not Given Tamsulosin HCl (Flomax) 0.4 mg PO QPM [facility] Last Admin: 09/04/17 17:17 Dose: 0.4 mg - Labs Labs: 09/04/17 05:30 09/04/17 05:30 PT 12.6 Seconds (9.8-13.1) 09/03/17 16:14 INR 1.1 (0.9-1.2) 09/03/17 16:14 APTT 28.6 Seconds (25.6-37.1) 09/03/17 16:14 - Constitutional Appears: No Acute Distress - Head Exam Head Exam: ATRAUMATIC - Eye Exam Eye Exam: absent: Scleral icterus - ENT Exam ENT Exam: Mucous Membranes Moist - Neck Exam Neck Exam: absent: Meningismus - Respiratory Exam Respiratory Exam: absent: Rhonchi, Wheezes, Respiratory Distress - Cardiovascular Exam Cardiovascular Exam: REGULAR RHYTHM, +S1, +S2 - GI/Abdominal Exam GI & Abdominal Exam: Soft. 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 Patient had multiple surgeries on that knee since he first had left TKR in April 11, 2016. The knee was complicated with dehiscence and multiple infections. The wound remained open oozing with dark serous materials and failed to heal. (1) Septic joint of left knee joint wound culture (09/03/17): gram + cocci continue IV Meropenem and Vanco Dr Mannocchio on ID consult waiting again today for surgery (2) HTN (hypertension) BP stable. continue Losartan (3) COPD (chronic obstructive pulmonary disease) asymptomatic, no wheezing, no SOB Advair 1 puff q 12hrs
[2017-09-05] MEDS ORDERED: Midazolam 2 MG/2 ML VIAL ONE (13:28)
[2017-09-05] MEDS ORDERED: Sodium Chloride 0.9% 1,000 ML IV ONE (14:55)
[2017-09-05] MEDS ORDERED: Gentamicin 80 mg/2mL Inj. ONE (15:02)
[2017-09-05 15:37] LABS: FLUID TYPE SYNOVIAL FLUID
[2017-09-05] MEDS ORDERED: Vancomycin 1 g Inj IVPB ONE (16:00)
[2017-09-05] MEDS ORDERED: Bacitracin Ointment 30 GM TUBE ONE (16:53)
[2017-09-05] MEDS ORDERED: Bacitracin OINT 15GM TOP ONE (17:20)
[2017-09-05] MEDS ORDERED: Lactated Ringer's 1,000 ML IV ONE (17:29)
--- NOTE | 2017-09-05 17:32 | PCM.SURG1 ---
Surgeon's Initial Post Op Note - Surgeon's Notes Surgeon: Lauren Insurance Solicitor: [place] Type of Anesthesia: General Endo Pre-Operative Diagnosis: 1) superficial drainage- s/p Revision L TKR with wound excoriation Operative Findings: superficial drainage- s/p partial wound dehiscience. partial patella ligament avulsion. anterior and posterior synovitis L knee- s/ p Revision TKR Post-Operative Diagnosis: - as above Operation Performed: 1) Revision TKR- 1 component (tibial poly). 2)repair/ reconstruction patella ligament. 3) anterior/posterior synovectomy. 4) lateral patella release. 5) excision skin/subcutaneous tissue and muscle Specimen/Specimens Removed: skin/subcutaneous tissue/muscle. tibial poly. synovium. Estimated Blood Loss: EBL {In ML}: 50 Blood Products Given: N/A Drains Used: Wound Vac Post-Op Condition: Good Date of Surgery/Procedure: 09/05/17 Time of Surgery/Procedure: 13:55 (time in room- 1325/anesthesia indcution time 13:25)
[2017-09-05] MEDS ORDERED: HYDROmorphone 0.5 mg/0.5 ml ISec IVP PRN (17:45)
[2017-09-05 18:10] LABS: SYNOVIAL FLUID TOTAL COUNT 100 (0-0)
[2017-09-06] MEDS: Oxycodone/Acetaminophen 5/325 mg Tab PO PRN ×4 (00:27→20:07)
[2017-09-06] MEDS: Lactated Ringer's 1,000 ML IV SCH ×2 (01:24→03:00)
[2017-09-06] MEDS: Fluticasone-Salmeterol 500-50mcg Diskus IH SCH ×2 (05:30→17:30)
--- NOTE | 2017-09-06 09:31 | CP.PCM.PN ---
Subjective - Date & Time of Evaluation Date of Evaluation: 09/06/17 Time of Evaluation: 09:15 - Subjective Subjective: NO CHEST PAIN OR SOB Objective - Vital Signs/Intake and Output Vital Signs (last 24 hours): Temp Pulse Resp BP Pulse Ox 99 F 76 20 153/90 H 96 09/06/17 08:17 09/06/17 08:17 09/06/17 08:17 09/06/17 08:17 09/06/17 08:17 - Medications Medications: Current Medications Acetaminophen (Tylenol 325mg Tab) 650 mg PO Q6H PRN PRN Reason: Pain, Mild (1-3) Last Admin: 09/06/17 02:56 Dose: 650 mg Atorvastatin Calcium (Lipitor) 40 mg PO HS [facility] Last Admin: 09/05/17 21:00 Dose: 40 mg Docusate Sodium (Colace) 100 mg PO BID [facility] Last Admin: 09/05/17 17:17 Dose: Not Given Enoxaparin Sodium (Lovenox) 40 mg SC DAILY [facility] PRN Reason: Protocol Ferrous Sulfate (Feosol) 325 mg PO BID [facility] Last Admin: 09/05/17 17:17 Dose: Not Given Meropenem 1 gm/ Sodium (Chloride) 100 mls @ 100 mls/hr IVPB Q12 [facility] PRN Reason: Protocol Last Admin: 09/05/17 20:45 Dose: 100 mls/hr Vancomycin HCl 1 gm/ Sodium (Chloride) 250 mls @ 166.667 mls/hr IVPB Q12 [facility] Last Admin: 09/05/17 21:54 Dose: 166.667 mls/hr Lactated Ringer's (Lactated Ringer's) 1,000 mls @ 100 mls/hr IV .Q10H [facility] Last Admin: 09/06/17 03:00 Dose: Not Given Lactobacillus Acidophilus (Bacid Acidophilus) 1 cap PO BID [facility] Last Admin: 09/05/17 17:17 Dose: Not Given Losartan Potassium (Cozaar) 50 mg PO DAILY [facility] Last Admin: 09/05/17 08:59 Dose: 50 mg Magnesium Hydroxide (Milk Of Magnesia) 30 ml PO HS PRN PRN Reason: Constipation Morphine Sulfate (Morphine) 4 mg IVP Q3H PRN PRN Reason: Pain, severe (8-10) Last Admin: 09/06/17 05:20 Dose: 4 mg Oxycodone/Acetaminophen (Percocet 5/325 Mg Tab) 1 tab PO Q4H PRN PRN Reason: Pain, severe (8-10) Stop: 09/06/17 17:47 Last Admin: 09/06/17 08:15 Dose: 1 tab Pantoprazole Sodium (Protonix Ec Tab) 40 mg PO DAILY [facility] Last Admin: 09/05/17 08:55 Dose: Not Given Fluticasone/Salmeterol (Advair Diskus 500/50) 1 puff IH Q12H [facility] Last Admin: 09/06/17 05:30 Dose: 1 inh Tamsulosin HCl (Flomax) 0.4 mg PO QPM [facility] Last Admin: 09/05/17 20:58 Dose: 0.4 mg - Labs Labs: 09/04/17 05:30 09/04/17 05:30 PT 12.6 Seconds (9.8-13.1) 09/03/17 16:14 INR 1.1 (0.9-1.2) 09/03/17 16:14 APTT 28.6 Seconds (25.6-37.1) 09/03/17 16:14 - Respiratory Exam Respiratory Exam: Clear to Ausculation Bilateral - Cardiovascular Exam Cardiovascular Exam: REGULAR RHYTHM, +S1, +S2 - Additional Findings Additional findings: DR PITTMAN'S POST-OP NOTES REVIEWED Assessment and Plan - Assessment and Plan (Free Text) Assessment: LEFT KNEE SURGERY YESTERDAY HYPERTENSION HYPERLIPIDEMIA Plan: CONTINUE LOSARTAN, ATORVASTATIN, LOVENOX AND ANTIBIOTICS FOR REHAB
[2017-09-06] MEDS: Lactobacillus Acidophilus 500 MU Cap PO SCH ×2 (10:00→17:19)
[2017-09-06] MEDS: Meropenem 1 GM in Sodium Chloride 0.9% 100 ML IVPB SCH ×2 (10:06→20:08)
[2017-09-06] MEDS: Enoxaparin 40 mg Syringe SC SCH (10:06)
[2017-09-06] MEDS: Pantoprazole 40 mg EC Tab PO SCH (10:08)
--- NOTE | 2017-09-06 12:43 | RAD ---
PROCEDURE: Left Knee Radiographs. HISTORY: Nonhealing postoperative wound. Pain. No history of recent/ related trauma provided COMPARISON: 09/03/2017 FINDINGS: BONES: Orthopedic hardware unchanged with respect overall alignment and positioning. Additional postoperative spine identified suprapatellar space at the level of the tibia. JOINTS: No significant interval changes. JOINT EFFUSION: None. OTHER FINDINGS: None. IMPRESSION: Status post recent surgical intervention. Underlying orthopedic hardware remains in stable and satisfactory position.
[2017-09-06] MEDS ORDERED: oxyCODONE 10 mg ER Tab (oxyCONTIN) PO STA (13:20)
--- NOTE | 2017-09-06 13:27 | OP ---
PROCEDURE DATE: 09/05/2017 PREOPERATIVE DIAGNOSIS: Superficial drainage, left knee, status post successful revision total knee replacement, wound dehiscence, partial. POSTOPERATIVE DIAGNOSES: 1. Superficial drainage, left knee, status post successful revision total knee replacement, wound dehiscence, partial. Rule out deep sepsis, superficial wound drainage status post successful revision total knee replacement. 2. Patellar ligament avulsion. 3. Anterior and posterior synovitis, status post revision total knee replacement. PROCEDURE: 1. Revision, total knee replacement, one component. 2. Repair and reconstruction, patellar ligament. 3. Anterior and posterior synovectomy. 4. Lateral patellar release. 5. Excision of skin and subcutaneous tissue and muscle and primary closure. 6. Application of wound vacuum-assisted closure. SURGEON: Jai Aguilar M.D. MEAT SEAFOOD ASSOCIATE: Amy Garnica, certified registered nursing psychology assistant. SECOND ART COORDINATOR: Dino Law, first year podiatry resident. OPERATIVE INDICATION: Jos Jose is a 67-year-old gentleman who underwent successful left revision total knee replacement after a deep sepsis. The patient had had a negative aspiration arthrogram and the revision was successful and the patient developed wound drainage at [facility]. We are concerned about [facility]'s of handling wounds. The patient developed an excoriation and dehiscence at the medial aspect of the wound. The patient admitted at this point in time for an incision and drainage, revision of tibial polyethylene, synovectomy, and primary closure. At the time of surgery, there was found to be a partial avulsion of the patellar ligament and this is repaired at surgery. DESCRIPTION OF PROCEDURE: After thoroughly discussing the pros, cons, risks and benefits of the surgical approach, incision and drainage, polyethylene revision, possibility of mechanical failure, feet infection, repeat deep infection demanding removal of the components were discussed. Possibility of mechanical failure, infection, thromboembolic disease, secondary, tertiary, or even quaternary surgery were discussed. Possibility of amputation was discussed. No promises or guarantees were made. After having obtained informed consent, after having identified the side, site, and procedure and a critical pause/time-out after the satisfactory induction of the anesthetic, the initial incision was extended 2 fingerbreadths distally, 2 fingerbreadths proximally. An ellipse of skin, subcutaneous tissue and muscle is excised. Skin incision is carried out through the skin, subcutaneous tissue and some muscles were excised. At this point in time, carefully maintaining deep flaps to the level of the prepatellar bursa, medial and lateral flaps were elevated. At this point in time, the flaps were maintained. A medial arthrotomy was accomplished. There was found to be the aforementioned 1 cm defect and dehiscence of the medial aspect of the wound. Immediately on exposure of the wound, fluid is sent for aerobic, anaerobic, AFB, and fungal cultures and stat Gram stain with a number of white cells per high-power filed. This having been accomplished, the medial arthrotomy was accomplished. A lateral patellar retinacular release is completed and expanded to allow eversion of the patella. A partial avulsion of the patellar ligament is noted. This was prior to the exposure and probably occurred in all medical probability for physical therapy. This having been accomplished, the patella was carefully everted, the knee is flexed and dislocated. At this point in time, there was found to be evidence of biofilm on the polyethylene tibial component and at this point in time, the tibial polyethylene is removed. Screw was removed and polyethylene was removed. This having been accomplished, the wound was thoroughly irrigated with 3000 mL of antibiotic impregnated irrigating solution. This having been accomplished, thorough irrigation having been accomplished, the wound was thoroughly irrigated. In trying to accomplish with #15 polyethylene insert, it was found to be stable in flexion and extension. Full flexion was achieved. It should be noted that a careful anterior and posterior synovectomy was accomplished maintaining the femoral component. This allowed through the attainment of several degrees more of terminal extension. This having been accomplished, anterior and posterior synovectomy having been accomplished, lateral patellar retinacular release having been accomplished. Evaluation of the patella reveals that the patella is intact and does not need revision. The tibial component is well fixed as is the femoral component. Fluid is sent again for stat Gram stain with a number of white cells per high-power field, aerobic, anaerobic, AFB, and fungal cultures. This having been accomplished, the wound is thoroughly irrigated. The polyethylene insert is introduced and a 15 mm polyethylene was introduced. The screws introduced as well. This having been accomplished, the polyethylene insert is well fixed and flexion and extension is found to be excellent. Anterior and posterior synovectomy had been accomplished. At this point in time, the skin and subcutaneous tissue having been excised down to a viable tissue, the antibiotic impregnated calcium sulfate pellets were introduced. This having been accomplished, the insertion of the antibiotic impregnated pellets, closure was in layers with interrupted Vicryl and freddy for skin. At this point in time, the wound dehiscence on the medial aspect is closed. The skin is excised after the skin and subcutaneous tissue, closure was in layers with interrupted Vicryl and nylon. At this point in time, the wound VAC was applied to the wound. The Prevena wound VAC was applied with the appropriate packing. The aperture was cut at the mid aspect of the wound to fit the wound VAC drainage system. This having been accomplished, the wound VAC was used to cover the medial wound as well. Wound VAC having been applied with adhesive applied properly, the aperture appropriately constructed, the wound VAC is set up to wound drainage. Enstor-Duncan compressive dressing and knee immobilizers were applied. It should be noted that prior to closing, it was noted that the patellar ligament was partially avulsed. At this point in time, 3 separate anchors were introduced including one 3 Statak internal fixation sutures and one dual anchor. The patellar ligament was repaired to the medial arthrotomy, a modified gathering Bedolla-type stitch. The patellar ligament was repaired using interrupted Statak sutures of both simple with nonabsorbable suture and fiber wire in the gathering sutures. It should be noted that medial arthrotomy had been closed with interrupted #2 fiber wire and also the running #2 fiber wire to ensure the continuity of the extensive mechanism. The patellar ligament having been prepared, the medial arthrotomy having been closed, the wound having been irrigated thoroughly, IrriSept having been employed, closure was in layers with interrupted Vicryl and freddy for skin. The wound VAC was applied in the fashion as prescribed and Nestor-Duncan compression dressing and knee immobilizers were applied. Jai Aguilar MD
--- NOTE | 2017-09-06 13:51 | CP.PCM.PN ---
Subjective - Date & Time of Evaluation Date of Evaluation: 09/06/17 Time of Evaluation: 13:48 - Subjective Subjective: Patient states pain is controlled better with percocet and the morphine. Denies CP/SOB dizziness/numbness/tingling. Objective - Vital Signs/Intake and Output Vital Signs (last 24 hours): Temp Pulse Resp BP Pulse Ox 99.2 F 76 18 161/93 H 98 09/06/17 12:11 09/06/17 12:11 09/06/17 12:11 09/06/17 12:11 09/06/17 12:11 - Medications Medications: Current Medications Acetaminophen (Tylenol 325mg Tab) 650 mg PO Q6H PRN PRN Reason: Pain, Mild (1-3) Last Admin: 09/06/17 02:56 Dose: 650 mg Atorvastatin Calcium (Lipitor) 40 mg PO HS [facility] Last Admin: 09/05/17 21:00 Dose: 40 mg Docusate Sodium (Colace) 100 mg PO BID [facility] Last Admin: 09/06/17 10:04 Dose: 100 mg Enoxaparin Sodium (Lovenox) 40 mg SC DAILY [facility] PRN Reason: Protocol Last Admin: 09/06/17 10:06 Dose: 40 mg Ferrous Sulfate (Feosol) 325 mg PO BID [facility] Last Admin: 09/06/17 10:06 Dose: 325 mg Meropenem 1 gm/ Sodium (Chloride) 100 mls @ 100 mls/hr IVPB Q12 [facility] PRN Reason: Protocol Last Admin: 09/06/17 10:06 Dose: 100 mls/hr Vancomycin HCl 1 gm/ Sodium (Chloride) 250 mls @ 166.667 mls/hr IVPB Q12 [facility] Last Admin: 09/06/17 10:07 Dose: 166.667 mls/hr Lactated Ringer's (Lactated Ringer's) 1,000 mls @ 100 mls/hr IV .Q10H [facility] Last Admin: 09/06/17 03:00 Dose: Not Given Lactobacillus Acidophilus (Bacid Acidophilus) 1 cap PO BID [facility] Last Admin: 09/06/17 10:00 Dose: 1 cap Losartan Potassium (Cozaar) 50 mg PO DAILY [facility] Last Admin: 09/06/17 10:05 Dose: 50 mg Magnesium Hydroxide (Milk Of Magnesia) 30 ml PO HS PRN PRN Reason: Constipation Morphine Sulfate (Morphine) 4 mg IVP Q3H PRN PRN Reason: Pain, severe (8-10) Last Admin: 09/06/17 09:58 Dose: 4 mg Oxycodone HCl (Oxycontin Extended Release Tab) 10 mg PO Q12 [facility] Stop: 09/09/17 21:01 Oxycodone/Acetaminophen (Percocet 5/325 Mg Tab) 1 tab PO Q4H PRN PRN Reason: Pain, severe (8-10) Stop: 09/06/17 17:47 Last Admin: 09/06/17 08:15 Dose: 1 tab Pantoprazole Sodium (Protonix Ec Tab) 40 mg PO DAILY [facility] Last Admin: 09/06/17 10:08 Dose: 40 mg Fluticasone/Salmeterol (Advair Diskus 500/50) 1 puff IH Q12H [facility] Last Admin: 09/06/17 05:30 Dose: 1 inh Tamsulosin HCl (Flomax) 0.4 mg PO QPM [facility] Last Admin: 09/05/17 20:58 Dose: 0.4 mg - Labs Labs: 09/04/17 05:30 09/04/17 05:30 PT 12.6 Seconds (9.8-13.1) 09/03/17 16:14 INR 1.1 (0.9-1.2) 09/03/17 16:14 APTT 28.6 Seconds (25.6-37.1) 09/03/17 16:14 - Extremities Exam Additional comments: LLE: +ROM ankle/toes, sensation intact +DP pulse, wound vac functioning Assessment and Plan (1) Postoperative wound infection Assessment & Plan: POD#1 s/p I&D poly exchange wound vac application -ortho stable for d/c to rehab 09/07 -knee immobilizer at all times, TTWB no > 10%, no CPM, no knee flexion -patient to be discharged with Prevena wound vac at all times, do not remove x 7 days, wound care nurse to follow at rehab -f/u Dr. Aguilar 1 week call for appointment -cont VTE proph -d/w Dr. Aguilar, agrees with above Status: Acute
--- NOTE | 2017-09-06 16:00 | CP.PCM.PN ---
Subjective - Date & Time of Evaluation Date of Evaluation: 09/06/17 Time of Evaluation: 13:00 - Subjective Subjective: Patient was seen and examined bedside.Complains of pain to left knee. Hemodynamically stable, afebrile. No acute issues overnight. s/p left knee surgical wound I&D with wound vac placement Objective - Vital Signs/Intake and Output Vital Signs (last 24 hours): Temp Pulse Resp BP Pulse Ox 99.2 F 76 18 161/93 H 98 09/06/17 12:11 09/06/17 12:11 09/06/17 12:11 09/06/17 12:11 09/06/17 12:11 - Medications Medications: Current Medications Acetaminophen (Tylenol 325mg Tab) 650 mg PO Q6H PRN PRN Reason: Pain, Mild (1-3) Last Admin: 09/06/17 02:56 Dose: 650 mg Atorvastatin Calcium (Lipitor) 40 mg PO HS [facility] Last Admin: 09/05/17 21:00 Dose: 40 mg Docusate Sodium (Colace) 100 mg PO BID [facility] Last Admin: 09/06/17 10:04 Dose: 100 mg Enoxaparin Sodium (Lovenox) 40 mg SC DAILY [facility] PRN Reason: Protocol Last Admin: 09/06/17 10:06 Dose: 40 mg Ferrous Sulfate (Feosol) 325 mg PO BID [facility] Last Admin: 09/06/17 10:06 Dose: 325 mg Meropenem 1 gm/ Sodium (Chloride) 100 mls @ 100 mls/hr IVPB Q12 [facility] PRN Reason: Protocol Last Admin: 09/06/17 10:06 Dose: 100 mls/hr Vancomycin HCl 1 gm/ Sodium (Chloride) 250 mls @ 166.667 mls/hr IVPB Q12 [facility] Last Admin: 09/06/17 10:07 Dose: 166.667 mls/hr Lactated Ringer's (Lactated Ringer's) 1,000 mls @ 100 mls/hr IV .Q10H [facility] Last Admin: 09/06/17 03:00 Dose: Not Given Lactobacillus Acidophilus (Bacid Acidophilus) 1 cap PO BID [facility] Last Admin: 09/06/17 10:00 Dose: 1 cap Losartan Potassium (Cozaar) 50 mg PO DAILY [facility] Last Admin: 09/06/17 10:05 Dose: 50 mg Magnesium Hydroxide (Milk Of Magnesia) 30 ml PO HS PRN PRN Reason: Constipation Morphine Sulfate (Morphine) 4 mg IVP Q3H PRN PRN Reason: Pain, severe (8-10) Last Admin: 09/06/17 09:58 Dose: 4 mg Oxycodone HCl (Oxycontin Extended Release Tab) 10 mg PO Q12 [facility] Stop: 09/09/17 21:01 Oxycodone/Acetaminophen (Percocet 5/325 Mg Tab) 1 tab PO Q4H PRN PRN Reason: Pain, severe (8-10) Stop: 09/06/17 17:47 Last Admin: 09/06/17 08:15 Dose: 1 tab Pantoprazole Sodium (Protonix Ec Tab) 40 mg PO DAILY [facility] Last Admin: 09/06/17 10:08 Dose: 40 mg Fluticasone/Salmeterol (Advair Diskus 500/50) 1 puff IH Q12H [facility] Last Admin: 09/06/17 05:30 Dose: 1 inh Tamsulosin HCl (Flomax) 0.4 mg PO QPM [facility] Last Admin: 09/05/17 20:58 Dose: 0.4 mg - Labs Labs: 09/04/17 05:30 09/04/17 05:30 PT 12.6 Seconds (9.8-13.1) 09/03/17 16:14 INR 1.1 (0.9-1.2) 09/03/17 16:14 APTT 28.6 Seconds (25.6-37.1) 09/03/17 16:14 - Constitutional Appears: Non-toxic, No Acute Distress - Head Exam Head Exam: ATRAUMATIC, NORMAL INSPECTION, NORMOCEPHALIC - Eye Exam Eye Exam: EOMI, Normal appearance, PERRL Pupil Exam: NORMAL ACCOMODATION - ENT Exam ENT Exam: Mucous Membranes Moist, Normal Exam - Neck Exam Neck Exam: Full ROM, Normal Inspection - Respiratory Exam Respiratory Exam: Clear to Ausculation Bilateral, NORMAL BREATHING PATTERN. absent: Wheezes, Respiratory Distress - Cardiovascular Exam Cardiovascular Exam: REGULAR RHYTHM, RRR, +S1, +S2. absent: JVD - GI/Abdominal Exam GI & Abdominal Exam: Soft, Normal Bowel Sounds. absent: Distended, Guarding, Tenderness, Rebound - Rectal Exam Rectal Exam: Deferred - Extremities Exam Extremities Exam: absent: Calf Tenderness Additional comments: left knee dressing with wound vac in place - Back Exam Back Exam: NORMAL INSPECTION - Neurological Exam Neurological Exam: Alert, Awake, CN II-XII Intact, Oriented x3 - Psychiatric Exam Psychiatric exam: Normal Affect - Skin Skin Exam: Dry, Warm Assessment and Plan - Assessment and Plan (Free Text) Assessment: 67 yo male with history of HTN, COPD and OA came back for surgery because of non -healing, opened post-op wound on the left knee. Patient had multiple surgeries on that knee since he first had left TKR in April 11, 2016. The knee was complicated with dehiscence and multiple infections. The wound remained open oozing with dark serous materials and failed to heal. 1. Septic joint of left knee joint-- post op wound infection ,non- healing wound s/p I&D with wound vac placement wound cultures (09/03/17) positive for Staph aureus continue IV Meropenem and Vanco Dr Bonner on ID consult Continue toe touch to LLE wound vac to stay in place for 1 week DVt prophylaxis continue pain management 2. HTN (hypertension) BP stable. continue Losartan 3.COPD (chronic obstructive pulmonary disease) asymptomatic, no wheezing, no SOB Advair 1 puff q 12hrs 4.BPH on flomax 5. Anemia hgb stable 6.DVT prophylaxis on Lovenox
[2017-09-06] MEDS: oxyCODONE 10 mg ER Tab (oxyCONTIN) PO SCH (21:19)
[2017-09-07] MEDS: Oxycodone/Acetaminophen 5/325 mg Tab PO PRN ×3 (01:57→13:38)
[2017-09-07] MEDS: Fluticasone-Salmeterol 500-50mcg Diskus IH SCH (06:04)
[2017-09-07 07:09] LABS: HEMATOCRIT 31.8 % (35.0-51.0); MEAN CELL VOLUME 94.4 fl (80.0-94.0); MEAN CORPUSCULAR HEMOGLOBIN 31.9 pg (27.0-31.0); MEAN CORPUSCULAR HGB CONC 33.8 g/dL (33.0-37.0); RED CELL DISTRIBUTION WIDTH 14.7 % (11.5-14.5); WHITE BLOOD COUNT 10.4 K/uL (4.8-10.8)
[2017-09-07 07:14] LABS: BLOOD UREA NITROGEN 6 mg/dl (9-20); CALCIUM 8.7 mg/dL (8.4-10.2); CARBON DIOXIDE 25 mmol/L (22-30); CHLORIDE 104 mmol/L (98-107); GFR AFRICAN-AMERICAN > 60; GLUCOSE,RANDOM 118 mg/dL (75-110); POTASSIUM 3.8 MMOL/L (3.6-5.0); SODIUM 140 mmol/l (132-148)
[2017-09-07 08:00] VITALS: BP 132/77; PULSE 77; RESP 19; TEMP 98.7; O2SAT 97
[2017-09-07] MEDS: oxyCODONE 10 mg ER Tab (oxyCONTIN) PO SCH (09:51)
[2017-09-07] MEDS: Lactobacillus Acidophilus 500 MU Cap PO SCH (09:51)
[2017-09-07] MEDS: Meropenem 1 GM in Sodium Chloride 0.9% 100 ML IVPB SCH (09:53)
[2017-09-07] MEDS: Enoxaparin 40 mg Syringe SC SCH (09:53)
[2017-09-07] MEDS: Pantoprazole 40 mg EC Tab PO SCH (09:54)
--- NOTE | 2017-09-07 10:07 | CP.PCM.PN ---
Subjective - Date & Time of Evaluation Date of Evaluation: 09/07/17 Time of Evaluation: 10:05 - Subjective Subjective: S- pt with minimal post op discomfort Objective - Vital Signs/Intake and Output Vital Signs (last 24 hours): Temp Pulse Resp BP Pulse Ox 98.7 F 77 19 132/77 97 09/07/17 07:59 09/07/17 09:53 09/07/17 07:59 09/07/17 09:53 09/07/17 07:59 - Medications Medications: Current Medications Acetaminophen (Tylenol 325mg Tab) 650 mg PO Q6H PRN PRN Reason: Pain, Mild (1-3) Last Admin: 09/06/17 02:56 Dose: 650 mg Atorvastatin Calcium (Lipitor) 40 mg PO HS [facility] Last Admin: 09/06/17 21:19 Dose: 40 mg Docusate Sodium (Colace) 100 mg PO BID [facility] Last Admin: 09/07/17 09:52 Dose: 100 mg Enoxaparin Sodium (Lovenox) 40 mg SC DAILY [facility] PRN Reason: Protocol Last Admin: 09/07/17 09:53 Dose: 40 mg Ferrous Sulfate (Feosol) 325 mg PO BID [facility] Last Admin: 09/07/17 09:53 Dose: 325 mg Meropenem 1 gm/ Sodium (Chloride) 100 mls @ 100 mls/hr IVPB Q12 [facility] PRN Reason: Protocol Last Admin: 09/07/17 09:53 Dose: 100 mls/hr Vancomycin HCl 500 mg/ Sodium (Chloride) 100 mls @ 100 mls/hr IVPB Q12H [facility] PRN Reason: Protocol Last Admin: 09/07/17 09:55 Dose: 100 mls/hr Lactobacillus Acidophilus (Bacid Acidophilus) 1 cap PO BID [facility] Last Admin: 09/07/17 09:51 Dose: 1 cap Losartan Potassium (Cozaar) 50 mg PO DAILY [facility] Last Admin: 09/07/17 09:53 Dose: 50 mg Magnesium Hydroxide (Milk Of Magnesia) 30 ml PO HS PRN PRN Reason: Constipation Morphine Sulfate (Morphine) 4 mg IVP Q3H PRN PRN Reason: Pain, severe (8-10) Last Admin: 09/06/17 09:58 Dose: 4 mg Oxycodone HCl (Oxycontin Extended Release Tab) 10 mg PO Q12 [facility] Stop: 09/09/17 21:01 Last Admin: 09/07/17 09:51 Dose: 10 mg Oxycodone/Acetaminophen (Percocet 5/325 Mg Tab) 1 tab PO Q4 PRN PRN Reason: Pain, severe (8-10) Stop: 09/09/17 19:41 Last Admin: 09/07/17 06:03 Dose: 1 tab Pantoprazole Sodium (Protonix Ec Tab) 40 mg PO DAILY [facility] Last Admin: 09/07/17 09:54 Dose: 40 mg Fluticasone/Salmeterol (Advair Diskus 500/50) 1 puff IH Q12H [facility] Last Admin: 09/07/17 06:04 Dose: 1 inh Tamsulosin HCl (Flomax) 0.4 mg PO QPM [facility] Last Admin: 09/06/17 17:20 Dose: 0.4 mg - Labs Labs: 09/07/17 05:30 09/07/17 05:30 PT 12.6 Seconds (9.8-13.1) 09/03/17 16:14 INR 1.1 (0.9-1.2) 09/03/17 16:14 APTT 28.6 Seconds (25.6-37.1) 09/03/17 16:14 - Additional Findings Additional findings: Objective stance/gait- defrred L knee immobilizer intact N/V intact no gross progressive deficits orthopedically stable Assessment and Plan - Assessment and Plan (Free Text) Assessment: A- s/p Revision L TKF for spesis/persistent drainage N/V intact orthopedically stable P- oprthopedicallys stable for transfer to rehab PWB witrh walker/crutches KNEE IMMOBILIZER NOT TO BE REMOVED NO rom YET ORTHOPEDICALLY STABLE
--- NOTE | 2017-09-07 10:15 | CP.PCM.DIS ---
Provider - Provider Date of Admission: 09/03/17 17:21 Attending physician: Harvey Bautista MD Consults: Ortho : Dr Aguilar ID : Dr Kellogg Cardio: Dr Winn Time Spent in preparation of Discharge (in minutes): 30 Diagnosis - Discharge Diagnosis (1) Wound disruption, post-op, skin Status: Acute (2) COPD (chronic obstructive pulmonary disease) Status: Chronic (3) HTN (hypertension) Status: Chronic (4) Primary osteoarthritis of left knee Status: Chronic (5) Status post knee replacement Status: Chronic Hospital Course - Lab Results Lab Results: Micro Results 09/05/17 15:00 Knee - Left Gram Stain - Final 09/05/17 15:00 Knee - Left Wound Culture - Preliminary NO GROWTH AFTER 24 HOURS 09/05/17 15:00 Knee - Left Gram Stain - Final 09/05/17 15:00 Knee - Left Wound Culture - Preliminary NO GROWTH AFTER 24 HOURS 09/05/17 15:00 Knee - Left Gram Stain - Final 09/05/17 15:00 Knee - Left Wound Culture - Preliminary NO GROWTH AFTER 24 HOURS 09/05/17 15:00 Knee - Left Gram Stain - Final 09/05/17 15:00 Knee - Left Wound Culture - Preliminary NO GROWTH AFTER 24 HOURS 09/05/17 15:00 Knee - Left Gram Stain - Final 09/05/17 15:00 Knee - Left Wound Culture - Preliminary NO GROWTH AFTER 24 HOURS 09/05/17 15:00 Knee - Left Gram Stain - Final 09/05/17 15:00 Knee - Left Wound Culture - Preliminary NO GROWTH AFTER 24 HOURS 09/05/17 15:00 Knee - Left Gram Stain - Final 09/05/17 15:00 Knee - Left Wound Culture - Preliminary NO GROWTH AFTER 24 HOURS 09/05/17 15:00 Knee - Left Gram Stain - Final 09/05/17 15:00 Knee - Left Wound Culture - Preliminary NO GROWTH AFTER 24 HOURS 09/05/17 15:30 Other: Please Indicate Gram Stain - Final 09/05/17 15:30 Other: Please Indicate Body Fluid Culture - Preliminary NO GROWTH AFTER 24 HOURS 09/03/17 15:45 Blood-Venous Blood Culture - Preliminary NO GROWTH AFTER 3 DAYS 09/03/17 16:00 Blood-Venous Blood Culture - Preliminary NO GROWTH AFTER 3 DAYS 09/05/17 15:30 Other: Please Indicate Mycobacterial Culture - Preliminary 09/05/17 15:30 Knee Left Fungal Culture - Preliminary 09/03/17 17:00 Knee - Left Gram Stain - Final 09/03/17 17:00 Knee - Left Wound Culture - Final Staphylococcus Aureus Most Recent Lab Values WBC 10.4 K/uL (4.8-10.8) D 09/07/17 05:30 RBC 3.37 Mil/uL (4.40-5.90) L 09/07/17 05:30 Hgb 10.7 g/dL (12.0-18.0) L 09/07/17 05:30 Hct 31.8 % (35.0-51.0) L 09/07/17 05:30 MCV 94.4 fl (80.0-94.0) H 09/07/17 05:30 MCH 31.9 pg (27.0-31.0) H 09/07/17 05:30 MCHC 33.8 g/dL (33.0-37.0) 09/07/17 05:30 RDW 14.7 % (11.5-14.5) H 09/07/17 05:30 Plt Count 598 K/uL (130-400) H 09/07/17 05:30 MPV 7.3 fl (7.2-11.7) 09/04/17 05:30 Neut % (Auto) 52.4 % (50.0-75.0) 09/04/17 05:30 Lymph % (Auto) 31.4 % (20.0-40.0) 09/04/17 05:30 [place] % (Auto) 11.1 % (0.0-10.0) H 09/04/17 05:30 Eos % (Auto) 4.7 % (0.0-4.0) H 09/04/17 05:30 Baso % (Auto) 0.4 % (0.0-2.0) 09/04/17 05:30 Neut # 3.4 K/uL (1.8-7.0) 09/04/17 05:30 Lymph # 2.0 K/uL (1.0-4.3) 09/04/17 05:30 [place] # 0.7 K/uL (0.0-0.8) 09/04/17 05:30 Eos # 0.3 K/uL (0.0-0.7) 09/04/17 05:30 Baso # 0.0 K/uL (0.0-0.2) 09/04/17 05:30 ESR 61 mm/hr (0-20) H 09/05/17 05:25 PT 12.6 Seconds (9.8-13.1) 09/03/17 16:14 INR 1.1 (0.9-1.2) 09/03/17 16:14 APTT 28.6 Seconds (25.6-37.1) 09/03/17 16:14 Sodium 140 mmol/l (132-148) 09/07/17 05:30 Potassium 3.8 MMOL/L (3.6-5.0) 09/07/17 05:30 Chloride 104 mmol/L (98-107) 09/07/17 05:30 Carbon Dioxide 25 mmol/L (22-30) 09/07/17 05:30 Anion Gap 15 (10-20) 09/07/17 05:30 BUN 6 mg/dl (9-20) L 09/07/17 05:30 Creatinine 1.0 mg/dL (0.8-1.5) 09/07/17 05:30 Est GFR ( Amer) > 60 09/07/17 05:30 Est GFR (Non-Af Amer) > 60 09/07/17 05:30 Random Glucose 118 mg/dL (75-110) H 09/07/17 05:30 Calcium 8.7 mg/dL (8.4-10.2) 09/07/17 05:30 Total Bilirubin 0.3 mg/dl (0.2-1.3) 09/03/17 16:14 AST 49 U/L (17-59) 09/03/17 16:14 ALT 49 U/L (21-72) 09/03/17 16:14 Alkaline Phosphatase 107 U/L (38-126) 09/03/17 16:14 Total Protein 8.0 G/DL (6.3-8.2) 09/03/17 16:14 Albumin 4.0 g/dL (3.5-5.0) 09/03/17 16:14 Globulin 4.0 gm/dL (2.2-3.9) H 09/03/17 16:14 Albumin/Globulin Ratio 1.0 (1.0-2.1) 09/03/17 16:14 Procalcitonin 0.14 NG/ML (0.19-0.49) L 09/05/17 05:25 Urine Color Yellow (YELLOW) 09/04/17 13:00 Urine Clarity Slighty-cloudy (Clear) 09/04/17 13:00 Urine pH 5.0 (5.0-8.0) 09/04/17 13:00 Ur Specific [place] 1.015 (1.003-1.030) 09/04/17 13:00 Urine Protein Negative mg/dL (NEGATIVE) 09/04/17 13:00 Urine Glucose (UA) Neg mg/dL (Normal) 09/04/17 13:00 Urine Ketones Negative mg/dL (NEGATIVE) 09/04/17 13:00 Urine Blood Negative (NEGATIVE) 09/04/17 13:00 Urine Nitrate Negative (NEGATIVE) 09/04/17 13:00 Urine Bilirubin Negative (NEGATIVE) 09/04/17 13:00 Urine Urobilinogen 0.2-1.0 mg/dL (0.2-1.0) 09/04/17 13:00 Ur Leukocyte Esterase Neg Tony/uL (Negative) 09/04/17 13:00 Urine RBC (Auto) 2 /hpf (0-3) 09/04/17 13:00 Urine Microscopic WBC 1 /hpf (0-5) 09/04/17 13:00 Ur Squamous Epith Cells < 1 /hpf (0-5) 09/04/17 13:00 Fluid Type Synovial fluid 09/05/17 15:30 Synovial WBC 99.0 /mm3 (0.0-150.0) 09/05/17 15:30 Synovial RBC 54563.0 /mm3 (0.0-0.0) H 09/05/17 15:30 Synovial Neutrophils 60.0 % (0-0) H 09/05/17 15:30 Synovial Lymphocytes 19.0 % (0-0) H 09/05/17 15:30 Synov Monos/Macrophage 21 % (0-0) H 09/05/17 15:30 Synovial Fluid Comment Turbid 09/05/17 15:30 Vancomycin Trough 15.7 ug/mL (5.0-10.0) H 09/06/17 08:30 Blood Type B POSITIVE 09/03/17 16:14 Antibody Screen Negative 09/03/17 16:14 Crossmatch See Detail 09/03/17 16:14 BBK History Checked Patient has bt 09/03/17 16:14 - Hospital Course Hospital Course: 67 yo male with history of HTN, COPD and OA came back for surgery because of non -healing, opened post-op wound on the left knee. Patient had multiple surgeries on that knee since he first had left TKR in April 11, 2016. The knee was complicated with dehiscence and multiple infections. The wound remained open oozing with dark serous materials and failed to heal. 1. Left Knee superficial non- healing wound , Hx of TKR s/p I&D with wound vac placement , Revision TKR wound cultures (09/03/17) positive for Staph aureus continue IV Meropenem and Vanco Dr Bonner on ID consult Keep Knee Immobilizer wound vac to stay in place for 1 week DVt prophylaxis continue pain management partial Weight Bearing with walker\ No Range of motion yet until instructed by Dr Aguilar ff up with Dr Aguilar in 1 wk 2. HTN (hypertension) BP stable. continue Losartan 3.COPD (chronic obstructive pulmonary disease) asymptomatic, no wheezing, no SOB Advair 1 puff q 12hrs Duoneb prn 4.BPH on flomax 5. Anemia hgb stable 6.DVT prophylaxis on Lovenox Discharge Exam - Head Exam Head Exam: ATRAUMATIC, NORMAL INSPECTION, NORMOCEPHALIC - Eye Exam Eye Exam: EOMI, Normal appearance Pupil Exam: NORMAL ACCOMODATION - ENT Exam ENT Exam: Mucous Membranes Moist, Normal External Ear Exam - Neck Exam Neck exam: Full Rom - Respiratory Exam Respiratory Exam: NORMAL BREATHING PATTERN. absent: Wheezes, Respiratory Distress - Cardiovascular Exam Cardiovascular Exam: REGULAR RHYTHM, +S2, +S4 - GI/Abdominal Exam GI & Abdominal Exam: Normal Bowel Sounds, Soft. absent: Tenderness - Extremities Exam Extremities exam: normal capillary refill, pedal pulses present Additional comments: no calf tenderness Left knee with immobilizer - Back Exam Back exam: FULL ROM. absent: CVA tenderness (L), CVA tenderness (R) - Neurological Exam Neurological exam: Alert, CN II-XII Intact, Oriented x3, Reflexes Normal - Psychiatric Exam Psychiatric exam: Normal Affect, Normal Mood - Skin Skin Exam: Dry, Normal Color, Warm Discharge Plan - Discharge Medications Prescriptions: Meropenem 1g/NS 100mL IVPB 1 gm IV Q12 14 Days piggyback Vancomycin/0.9 % Sod Chloride [Vanco 500 mg/100 ml-0.9% NaCl] 500 mg IV Q12 14 Days froz.piggy - Follow Up Plan Condition: GOOD Disposition: TRANSF TO SNF Instructions: Negative Pressure Wound Therapy (DC) Additional Instructions: ff up with Dr Aguilar in 1 wk Partial Weight Bearing with walker/crutches KNEE IMMOBILIZER NOT TO BE REMOVED NO range of motion yet Keep Wound Vac x 1 wk Continue IV Meropenem and Vanco until d/c by ID Dr Kellogg BMP and Vanco trough weekly Referrals: Clark Kellogg MD [Medical Doctor] -
--- NOTE | 2017-09-07 12:29 | CP.PCM.PN ---
Subjective - Date & Time of Evaluation Date of Evaluation: 09/07/17 Time of Evaluation: 10:00 - Subjective Subjective: NO CHEST PAIN OR SOB ONLY MILD DISCOMFORT AT LEFT KNEE SURGICAL SITE Objective - Vital Signs/Intake and Output Vital Signs (last 24 hours): Temp Pulse Resp BP Pulse Ox 98.7 F 77 19 132/77 97 09/07/17 07:59 09/07/17 09:53 09/07/17 07:59 09/07/17 09:53 09/07/17 07:59 - Medications Medications: Current Medications Acetaminophen (Tylenol 325mg Tab) 650 mg PO Q6H PRN PRN Reason: Pain, Mild (1-3) Last Admin: 09/06/17 02:56 Dose: 650 mg Atorvastatin Calcium (Lipitor) 40 mg PO HS [facility] Last Admin: 09/06/17 21:19 Dose: 40 mg Docusate Sodium (Colace) 100 mg PO BID [facility] Last Admin: 09/07/17 09:52 Dose: 100 mg Enoxaparin Sodium (Lovenox) 40 mg SC DAILY [facility] PRN Reason: Protocol Last Admin: 09/07/17 09:53 Dose: 40 mg Ferrous Sulfate (Feosol) 325 mg PO BID [facility] Last Admin: 09/07/17 09:53 Dose: 325 mg Meropenem 1 gm/ Sodium (Chloride) 100 mls @ 100 mls/hr IVPB Q12 [facility] PRN Reason: Protocol Last Admin: 09/07/17 09:53 Dose: 100 mls/hr Vancomycin HCl 500 mg/ Sodium (Chloride) 100 mls @ 100 mls/hr IVPB Q12H [facility] PRN Reason: Protocol Last Admin: 09/07/17 09:55 Dose: 100 mls/hr Lactobacillus Acidophilus (Bacid Acidophilus) 1 cap PO BID [facility] Last Admin: 09/07/17 09:51 Dose: 1 cap Losartan Potassium (Cozaar) 50 mg PO DAILY [facility] Last Admin: 09/07/17 09:53 Dose: 50 mg Magnesium Hydroxide (Milk Of Magnesia) 30 ml PO HS PRN PRN Reason: Constipation Morphine Sulfate (Morphine) 4 mg IVP Q3H PRN PRN Reason: Pain, severe (8-10) Last Admin: 09/06/17 09:58 Dose: 4 mg Oxycodone HCl (Oxycontin Extended Release Tab) 10 mg PO Q12 [facility] Stop: 09/09/17 21:01 Last Admin: 09/07/17 09:51 Dose: 10 mg Oxycodone/Acetaminophen (Percocet 5/325 Mg Tab) 1 tab PO Q4 PRN PRN Reason: Pain, severe (8-10) Stop: 09/09/17 19:41 Last Admin: 09/07/17 06:03 Dose: 1 tab Pantoprazole Sodium (Protonix Ec Tab) 40 mg PO DAILY [facility] Last Admin: 09/07/17 09:54 Dose: 40 mg Fluticasone/Salmeterol (Advair Diskus 500/50) 1 puff IH Q12H [facility] Last Admin: 09/07/17 06:04 Dose: 1 inh Tamsulosin HCl (Flomax) 0.4 mg PO QPM [facility] Last Admin: 09/06/17 17:20 Dose: 0.4 mg - Labs Labs: 09/07/17 05:30 09/07/17 05:30 PT 12.6 Seconds (9.8-13.1) 09/03/17 16:14 INR 1.1 (0.9-1.2) 09/03/17 16:14 APTT 28.6 Seconds (25.6-37.1) 09/03/17 16:14 - Respiratory Exam Respiratory Exam: Clear to Ausculation Bilateral - Cardiovascular Exam Cardiovascular Exam: REGULAR RHYTHM, +S1, +S2 Assessment and Plan - Assessment and Plan (Free Text) Assessment: S/P LEFT KNEE SURGERY FOR WOUND DEHISCENCE HYPERTENSION HYPERLIPIDEMIA Plan: CONTINUE ATORVASTATIN, LOSARTAN, LOVENOX AND ANTIBIOTICS FOR DISCHARGE TO [facility] REH[facility] TODAY
== END 2017-09-07 16:28 | DRG 908 ==
LOC: H.ER 14:02 → H.ERHOLD 17:21 → H.MEDSURG1 22:16
PROC: 0SPW0JZ Removal of Synthetic Substitute from Left Knee Joint, Tibial Surface, Open Approach (ICD-10-PCS; 2017-09-05)
PROC: 0SQD0ZZ Repair Left Knee Joint, Open Approach (ICD-10-PCS; 2017-09-05)
PROC: 0KBT0ZZ Excision of Left Lower Leg Muscle, Open Approach (ICD-10-PCS; 2017-09-05)
PROC: 0SND0ZZ Release Left Knee Joint, Open Approach (ICD-10-PCS; principal; 2017-09-05 12:45)
PROC: 0SRW0JZ Replacement of Left Knee Joint, Tibial Surface with Synthetic Substitute, Open Approach (ICD-10-PCS; 2017-09-05 12:45)
PROC: 0SBD0ZZ Excision of Left Knee Joint, Open Approach (ICD-10-PCS; 2017-09-05 12:45)
DX: T81.31XA Disruption of external operation (surgical) wound, not elsewhere classified, initial encounter (principal); T81.4XXA Infection following a procedure, initial encounter; J44.9 Chronic obstructive pulmonary disease, unspecified; I10 Essential (primary) hypertension; D64.9 Anemia, unspecified; S76.112A Strain of left quadriceps muscle, fascia and tendon, initial encounter; Y83.8 Other surgical procedures as the cause of abnormal reaction of the patient, or of later complication, without mention of misadventure at the time of the procedure; Y79.2 Prosthetic and other implants, materials and accessory orthopedic devices associated with adverse incidents; E78.00 Pure hypercholesterolemia, unspecified; E78.5 Hyperlipidemia, unspecified; N40.0 Benign prostatic hyperplasia without lower urinary tract symptoms; M65.9 Synovitis and tenosynovitis, unspecified; Z87.891 Personal history of nicotine dependence; B95.61 Methicillin susceptible Staphylococcus aureus infection as the cause of diseases classified elsewhere; Z96.652 Presence of left artificial knee joint; M17.12 Unilateral primary osteoarthritis, left knee; X58.XXXA Exposure to other specified factors, initial encounter

== ENCOUNTER 2018-08-21 06:06 | Day surgery (SDC) | payer OTHER ==
--- NOTE | 2018-08-21 07:23 | CP.SDSHP ---
Same Day Surgery H & P - History Proposed Procedure: Left knee aspiration arthrogram under anesthesia Pre-Op Diagnosis: S/p left revision total knee arthroplasty - Previous Medical/Surgical History Cardiac: Hypertension Pulmonary: Emphysema/COPD Pain: 2.Mild Pain Previous Surgical History: Right TKA, L TKA, L knee revision TKA (1 component), L knee explantation and L knee placement of antibiotic spacer, L revision TKA - Allergies Allergies: Allergies grass pollen Allergy (Verified 05/09/17 11:22) SWELLING tonque swelling face burning - Current Medications Current Medications: Lipitor, flomax, losartan, cefadroxil, advair, albuterol, protonix, hydrocodone, gabapentin, ASA - Physical Exam General Appearance: NAD Vital Signs: Vital Signs 08/21/18 08/21/18 07:13 07:15 Temperature 98.3 F Pulse Rate 80 80 Respiratory 20 Rate Blood Pressure 163/100 H O2 Sat by Pulse 99 Oximetry Mental Status: Alert & Oriented x3 Neuro: WNL Heart: WNL Lungs: WNL - {Optional Preform as Required} Abdomen: WNL Integument: WNL Ortho: Other (L knee: Old TKA scar well healed, painless ROM 0-90, gross NVI distally, motor intact EHL/FHL, TA/G, comps soft NT b/l) ENT: WNL - Impression Impression: Patient is a 68 y/o male with PMH of HTN and COPD presents for elective left knee aspiration arthrogram. The patient has had primary L TKA on 04/11/16. He had a L knee revision poly exchange on 05/07/16 due to MRSA infection. He had a left knee removal of TKA components and antibiotic spacer placement on 05/09/17. A revision L TKA was then performed on 07/24/18. R isks/benefits/alternatives were explained to the patient who understands and agrees to proceed with above procedure. Pt. Evaluated Today:Candidate for Anesthesia & Procedure: Yes - Date & Time Date: 08/21/18 Time: 07:00 Short Stay Discharge - Short Stay Discharge Admitting Diagnosis/Reason for Visit: M25.562/ M25.669/ Disposition: HOME/ ROUTINE Referrals: Guanaco MCDANIELS,Calixto gNuyen [Primary Care Provider] -
[2018-08-21] MEDS ORDERED: Lactated Ringer's 1,000 ML IV ONE (07:25)
[2018-08-21] MEDS ORDERED: ceFAZolin IV 2 gm in Dextrose 2 GM/50 ML BAG IVPB ONE (07:36)
[2018-08-21] MEDS ORDERED: Iohexol 300 10 ML ONE ×3 (07:37→08:44)
[2018-08-21] MEDS ORDERED: Propofol 10 mg/ml Inj (20 ML) ONE (08:06)
[2018-08-21] MEDS ORDERED: Rocuronium 10 mg/ml (5 ml) ONE (08:24)
[2018-08-21] MEDS ORDERED: Iohexol 300 10 ML IJ ONE (08:45)
[2018-08-21] MEDS ORDERED: Neostigmine 1:1000 (1 mg/ml) Inj ONE (08:53)
[2018-08-21 08:59] LABS: FLUID TYPE SYNOVIAL FLUID
[2018-08-21] MEDS ORDERED: Bupivacaine 0.25% Inj(30mL) ONE (09:00)
[2018-08-21] MEDS ORDERED: Oxycodone/Acetaminophen 5/325 mg Tab PO PRN (09:02)
[2018-08-21] MEDS ORDERED: HYDROmorphone 0.5 mg/0.5 ml ISec IVP PRN (09:21)
[2018-08-21] MEDS ORDERED: Lactated Ringer's 1,000 ML IV SCH (09:30)
[2018-08-21 10:04] LABS: SF GROSS APPEARANCE CLOUDY (CLEAR); SYNOVIAL FLUID COMMENT MODERATELY BLOODY
[2018-08-21 10:08] LABS: SYNOVIAL FLUID MONO/MACROPHAGE 9 % (0-0)
[2018-08-21 11:31] VITALS: O2SAT 98
[2018-08-21 12:34] VITALS: PULSE 67; RESP 18; TEMP 98
[2018-08-21 12:50] VITALS: BP 158/84
--- NOTE | 2018-08-21 15:24 | PCM.SURG1 ---
Surgeon's Initial Post Op Note - Surgeon's Notes Surgeon: Lauren Biological Technical Officer: DE Vallejo Type of Anesthesia: General Endo Anesthesia Administered By: Pre-Operative Diagnosis: ER/o septic revision L TKR Operative Findings: No evidence for systemic sepsis Post-Operative Diagnosis: as above Operation Performed: Aspiration arthrogram l knee. manipulation L knee under anaesthesia. positioning of fluoro/interpretation of video images Specimen/Specimens Removed: syvial fluid Estimated Blood Loss: EBL {In ML}: 2 Blood Products Given: N/A Drains Used: No Drains Post-Op Condition: Good Date of Surgery/Procedure: 08/21/18 Time of Surgery/Procedure: 08:45 (time in room 8:07/anaesthesia indcution time 8:07)
--- NOTE | 2018-08-21 15:38 | RAD ---
Date of service: 08/21/2018 PROCEDURE: Intraoperative fluoroscopy HISTORY: LEFT KNEE COMPARISON: Not available TECHNIQUE: Intraoperative fluoroscopy was provided during left knee arthroplasty. Total time of fluoroscopy was less than 1 hr. FINDINGS: Multiple fluoroscopic spot films are submitted IMPRESSION: Fluoroscopy provided
--- NOTE | 2018-08-22 11:55 | OP ---
PROCEDURE DATE: 08/21/2018 LOCATION: [facility]. PREOPERATIVE DIAGNOSIS: Rule out septic revision left total knee replacement. POSTOPERATIVE DIAGNOSIS: No evidence for deep sepsis, status post revision left total knee replacement. OPERATIVE FINDINGS: Sterile aspirate, no evidence for deep sepsis. SURGEON: Jai Aguilar MD TRIPE COOKER: Amy Garnica, certified registered nursing zoning assistant. ANESTHESIA: General endotracheal anesthesia. ANESTHESIOLOGIST: Ruben Carpio MD OPERATION PERFORMED: 1. Aspiration arthrogram, left knee. 2. Manipulation of left knee under anesthesia. 3. Positioning of fluoroscope, interpretation of video images. BLOOD LOSS: Approximately 2 to 5 mL. BLOOD PRODUCTS: No blood products given. DRAINS: No drains. POSTOPERATIVE CONDITION: Stable. TIME OF SURGICAL PROCEDURE: 08:45, incision time in the room 08:07, anesthesia induction time 08:07. OPERATIVE INDICATIONS: Jos Jose is a gentleman who is well known to my practice, who had sustained a worker's compensation injury. He presents as a 68-year-old male, status post worker's compensation injury, who presents with pain and restricted range of motion of the left knee. The patient had marked discomfort and underwent successful revision. The patient was seen by Infectious Disease, [facility] and the possibility of deep sepsis was raised on that evaluation. There was a positive culture for MRSA. It is unclear whether the skin was cultured or whether there was a deep culture affected. As a result of this, even though the patient was asymptomatic, pros, cons, risks, and benefits of aspiration arthrogram were discussed to definitively investigate whether this patient indeed had deep sepsis, which was raised by significant concern on the Infectious Disease information services consultant's report. Pros, cons, risks, and benefits were discussed. OPERATIVE PROCEDURE: After having obtained informed consent in the above fashion, after having identified the side, site, and procedure and a critical pause/time-out, left knee as the correct knee. After having identified the side, site, and procedure and a critical pause/time-out, after sterilely prepping and draping the left lower extremity, the left lower extremity was prepped and free draped in the usual fashion for arthrography and aspiration arthrography of the left knee. Again, after the satisfactory induction of the anesthetic, after having identified the side, site, and procedure and a critical pause/time-out, after satisfactory induction of the anesthetic, after sterilely prepping and draping the left lower extremity under the surgeon's direction, the fluoroscope was positioned, video images were generated, and therapeutic decisions were made therefrom. From a superolateral portal, approximately 15 mL of radiopaque contrast were introduced and then an additional 15 mL were introduced. Flexion/extension was accomplished. Under the surgeon's direction, the fluoroscope was positioned with the hoop over the table, so as to effect an acceptable lateral. AP and lateral image intensification views were obtained. There was absolutely no evidence of loosening with excellent component position. At this point in time, the aspiration was accomplished. Aliquots fluid were sent for stat Gram stain with number of white cells per high-power field, aerobic, anaerobic, AFB, and fungal cultures. The knee was manipulated. The knee was further aspirated to remove most of the radiopaque contrast. Compression dressing was applied. Again, the stat Gram stain reveals 0 to 1 white cells per high-power field without bacteria. There was adamantly and emphatically no evidence for deep sepsis. The patient was transferred from the operating room table to the stretcher having tolerated the procedure well. Jai Aguilar MD
== END 2018-08-21 12:50 | disposition home or self-care (01) ==
LOC: H.OPSURG 06:06
PROVIDERS: ATTEND Orthopaedic Surgery
DX: M25.562 Pain in left knee (principal); J44.9 Chronic obstructive pulmonary disease, unspecified; I10 Essential (primary) hypertension; Z96.653 Presence of artificial knee joint, bilateral; Z79.82 Long term (current) use of aspirin; E78.5 Hyperlipidemia, unspecified; N40.0 Benign prostatic hyperplasia without lower urinary tract symptoms
CPT/HCPCS: 20610; 27570; 87015; 87070; 87075; 87101; 87116; 87206; 89051; J0690; J2001; J2704; J2710; J3010; J7030; J7120; Q9967